=== PATIENT | female | born 1945 | race Caucasian/White ===

== ENCOUNTER 2020-02-29 11:15 | Emergency (ER) | payer MEDICARE, SELFPAY ==
[2020-02-29 11:19] VITALS: BP 128/85; PULSE 79; RESP 16; TEMP 36.1; O2SAT 99
--- NOTE | 2020-02-29 12:22 | ED.WOUNDLAC ---
HPI - Wound/Laceration General Chief Complaint: Wound/Laceration Stated Complaint: laceration hand Time Seen by Provider: 02/29/20 12:00 History of Present Illness HPI narrative: 74 yo female presents from home for a laceration. She cut the palmar surface of the left hand between the second and third fingers with the broken edge of a glass cutting board. Mild bleeding. No weakness, numbness. Related Data Allergies Allergy/AdvReac Type Severity Reaction Status Date / Time adhesive Allergy Unknown SKIN Verified 11/27/19 09:59 IRRITATION latex Allergy Unknown Skin Verified 11/27/19 09:59 Reaction lisinopril Allergy Unknown cough Verified 11/27/19 09:59 Review of Systems Review of Systems: All systems reviewed & are unremarkable except as noted in HPI and below Respiratory: Respiratory: Denies dyspnea Gastrointestinal: Gastrointestinal: Denies nausea Musculoskeletal: Musculoskeletal: Denies back pain Neurologic: Denies dizziness, Denies numbness and Denies weakness Hematologic/Lymphatic: Hematologic/Lymphatic: Denies easy bleeding and Denies easy bruising PMFSH Past Medical History Medical History Essential (primary) hypertension Major depressive disorder, recurrent episode, mild with anxious distress Family History Family History Sibling Depression Family history of cardiovascular disease Father Family history of glaucoma, Onset Age: 91 Mother Family history of alcoholism, Onset Age: 69 Family history of liver disease, Onset Age: 69 Social History Social History Smoking status: Never smoker Alcohol intake: never Gender identity (if verbalized by the patient): Female Exam Const: General: healthy appearing, no acute distress and alert Orientation/consciousness: patient oriented x3 HENMT: Head: normal to inspection Cardio: Other: 2 + left radial pulse. Brisk capillary refill distal to injury Skin: Other: 3 cm laceration to left palm Neuro: General: patient oriented x3, moves all extremities and CN's II-XI intact bilaterally Speech: normal speech Gait exam (Neuro): Normal gait present Other: distal sensation intact Extrem: General: normal to inspection Course Vital Signs Vital signs: Vital Signs Temperature 36.1 C L 02/29/20 11:19 Pulse Rate 79 02/29/20 11:19 Respiratory Rate 16 02/29/20 11:19 Blood Pressure 128/85 02/29/20 11:19 Pulse Oximetry 99 02/29/20 11:19 Temperature 36.1 C L 02/29/20 11:19 Pulse Rate 79 02/29/20 11:19 Respiratory Rate 16 02/29/20 11:19 Blood Pressure 128/85 02/29/20 11:19 Pulse Oximetry 99 02/29/20 11:19 Procedures Laceration Laceration 1: Date: 02/29/20 Time: 13:00 Site: hand Side (If applicable): left Size (cm): 3 Description: linear Depth: simple, single layer Local Anesthetic: lidocaine 1% and with epi Amount of anesthesia used (mL): 2 Pre-repair: wound explored (no foreign bodies) and irrigated extensively ====== Skin Level ====== Skin layer closed with: nylon Size (cm): 5-0 Number of sutures: 3 Technique: horizontal mattress ====== Subcutaneous Layer ====== ====== Muscle Layer ====== ====== Tendon Layer ====== Discharge Plan Discharge Clinical Impression: Hand laceration Qualifiers: Encounter type: initial encounter Foreign body presence: without foreign body Laterality: left Qualified Code(s): S61.412A - Laceration without foreign body of left hand, initial encounter Patient Disposition: Home, Self-Care Condition: Stable Instructions: Laceration (ED) Additional Instructions: Folow-uop for suture removal in 10-14 days. Prescriptions: No Action triamcinolone acetonide 0.1 % crea
[2020-02-29] MEDS: TETANUS,DIPHTHERIA,AC PERTUSSIS ADULT (0.5 ML) BOOSTRIX IM (13:05)
== END 2020-02-29 13:15 | disposition home or self-care (01) ==
PROVIDERS: Emergency Provider Emergency Medicine; PCP Family Medicine
DX: S61.412A Laceration without foreign body of left hand, initial encounter (principal); I10 Essential (primary) hypertension; Z23 Encounter for immunization; W25.XXXA Contact with sharp glass, initial encounter
CPT/HCPCS: 12002; 90471; 90715; 99282

== ENCOUNTER 2020-10-12 08:11 | Observation (INO) | payer MEDICARE, SELFPAY ==
[2020-10-12] VITALS (9 sets, daily range): BP systolic 142–194; BP diastolic 59–89; PULSE 58–89; RESP 16–24; TEMP 36.3–36.8; O2SAT 96–100; BMI 24.3
--- NOTE | ~2020-10-12 | MR_ITS ---
EXAMINATION: MR brain/brain stem wo/w con DATE: 10/13/2020 10:03 INDICATION: Diplopia. Transient ischemic attack. TECHNIQUE: Magnetic resonance imaging (MRI) of the brain and brainstem was performed without and with 12 mL MultiHance intravenous contrast. Sequences included sagittal and axial T1-weighted FSE, axial diffusion-weighted FS EPI, axial T2*-weighted GRE, axial T2-weighted FLAIR Propeller, and axial T2-we ighted Propeller. Postcontrast sequences included axial and coronal T1-weighted FSE. Apparent diffusi on coefficient (ADC) maps were created. COMPARISON: Head CT 10/12/2020 FINDINGS: There is no intracranial hemorrhage, acute infarction, or abnormal intracranial mass lesion . There are scattered areas of nonspecific increased T2-weighted signal intensity in the cerebral whi te matter. The ventricles are normal in size. There is mild mucosal thickening in the paranasal sinus es. There are likely changes of ocular lens replacement surgeries. The mastoid air cells are normal. IMPRESSION: 1. Mild nonspecific cerebral white matter disease, which likely represents chronic small vessel ische miguel disease. Reviewed, dictated and finalized at location A. IMPRESSION: 1. Mild nonspecific cerebral white matter disease, which likely represents practice specialist sammie small vessel ischemic disease.
--- NOTE | ~2020-10-12 | XR_ITS ---
EXAMINATION: XR chest 2V 10/12/2020 08:47 INDICATION: Diplopia PROCEDURE: 2 view chest COMPARISON: 04/11/2018 FINDINGS: The lungs are clear. The cardiomediastinal silhouette is within normal limits. There are no pleural effusions. There is no pneumothorax suspected. IMPRESSION: 1: NO ACUTE CARDIOPULMONARY DISEASE. Reviewed, dictated and finalized at location A.
--- NOTE | ~2020-10-12 | CT_ITS ---
EXAMINATION: CT brain wo con DATE: 10/12/2020 08:57 INDICATION: Double vision. Hypertension. TECHNIQUE: Computed tomography (CT) of the head was performed without intravenous contrast. The dose- length product was 605.33 mGy-cm. Automated exposure control and iterative reconstruction technique w ere employed. COMPARISON: CT dated 04/11/2018 FINDINGS: No acute intracranial hemorrhage, infarction, mass or mass effect. There are scattered mild periventricular and subcortical white matter changes, most likely related to small vessel ischemic d isease (microangiopathy). No ventriculomegaly or midline shift. Basilar cisterns are patent. IMPRESSION: 1. No acute intracranial abnormality. Reviewed, dictated and finalized at location A.
--- NOTE | ~2020-10-12 | US_ITS ---
EXAMINATION: US carotid duplex BI DATE: 10/13/2020 10:17 INDICATION: Diplopia. Transient ischemic attack. TECHNIQUE: Grayscale, color Doppler, and pulsed Doppler images of the cervical carotid arteries were obtained. The degree of vessel stenosis is placed in one of the following categories: normal, <50%, 5 0-69%, >=70% but less than near-occlusion, near-occlusion, or total occlusion. Note that percent sten osis relative to normal distal artery lumen diameter is indirectly measured from velocity measurement s as described by Suresh, et al. Radiology 2003; 229:340-346. COMPARISON: None. FINDINGS: RIGHT: The right common carotid artery (CCA) peak systolic velocity (PSV) is 96 cm/s. The right internal car otid artery (ICA) PSV is 118 cm/s. The right ICA end-diastolic velocity (EDV) is 29 cm/s. The right I CA/CCA PSV ratio is 1.2. Grayscale and color Doppler images yield an estimate of <50% diameter reduct ion from plaque in the ICA. There is antegrade flow in the right vertebral artery. LEFT: The left CCA PSV is 108 cm/s. The left ICA PSV is 73 cm/s. The left ICA EDV is 22 cm/s. The left ICA/ CCA PSV ratio is 0.7. Grayscale and color Doppler images yield an estimate of <50% diameter reduction from plaque in the ICA. There is antegrade flow in the left vertebral artery. IMPRESSION: 1. <50% stenosis in the right internal carotid artery. 2. <50% stenosis in the left internal carotid artery. Reviewed, dictated and finalized at location A.
--- NOTE | 2020-10-12 08:25 | ECG_ITS ---
Measurements Intervals [place] Rate: 84 P: 17 WA: 145 QRS: -13 QRSD: 98 T: 70 QT: 360 QTc: 427 Interpretive Statements SINUS RHYTHM LEFT VENTRICULAR HYPERTROPHY AND ST-T CHANGE MINIMAL Q WAVES- HIGH LATERAL LEADS BASELINE ARTIFACT- I, II, III, AVR, AVL BORDERLINE ECG Electronically Signed On 10-12-2020 16:19:44 CDT by Venancio Mccabe D.O.
[2020-10-12] MEDS: LORazepam INJ (*CRX) 2 MG/ML VIAL 0.5 MG IV PUSH (08:54)
[2020-10-12 08:55] LABS: Basophils Percent Auto 0.7 % (0.2-1.2); Eosinophils Absolute Auto 0.2 K/mm3 (0-0.3); Eosinophils Percent Auto 4.1 % (0-4.4); Hematocrit 43.6 % (37.0-47.0); Hemoglobin 14.8 g/dL (12.0-15.0); Immature Granulocyte Absolute 0.02 K/mm3 (0.00-0.031); Immature Granulocyte Percent A 0.4 % (0-0.5); Lymphocytes Absolute Auto 1.55 K/mm3 (0.9-3.2); Lymphocytes Percent Auto 28.7 % (18.3-44.2); Mean Corpuscular HGB Conc 33.9 g/dl (32-36); Mean Corpuscular Hemoglobin 29.8 pg (26-34); Mean Corpuscular Volume 87.9 fl (80-100); Mean Platelet Volume 9.7 fl (7.4-10.4); Monocytes Absolute Auto 0.4 K/mm3 (0.1-0.6); Monocytes Percent Auto 7.6 % (2.6-8.5); Neutrophils Absolute Auto 3.2 K/mm3 (1.3-6.7); Neutrophils Percent Auto 58.5 % (45.5-73.1); Platelet Count Result 251 k/mm3 (150-375); Red Blood Count 4.96 M/mm3 (4.2-5.4); Red Cell Distribution Width 13.2 % (11.5-14.5); White Blood Count 5.4 K/mm3 (4.5-10.0)
[2020-10-12 09:03] LABS: Anion Gap 6 mmol/L (8-16); Blood Urea Nitrogen 15 mg/dL (7-17); Calcium 9.2 mg/dL (8.4-10.2); Carbon Dioxide 27 mmol/L (22-30); Chloride 104 mmol/L (98-107); Estimated CRCL calculation 69 ml/min; Estimated Glomerular Filt Rate > 60; Glucose 95 mg/dL (65-110); Potassium 3.1 mmol/L (3.4-5.0); Sodium 137 mmol/L (137-145)
--- NOTE | 2020-10-12 11:21 | ED.GENADULT ---
HPI - General Adult General Chief complaint: Recheck/Abnormal Lab/Rx Stated complaint: elevated bp, blurry vision Time Seen by Provider: 10/12/20 08:13 History of Present Illness HPI narrative: Patient is a 74-year-old female who presents ER with concerns for diplopia. Lasted for 30 minutes after waking this morning. Also had slight blurring of vision. No slurred speech or facial droop. No weakness in arm or leg. She had no balance issues. Resolved on its own. Has had no vision issues in the past. Noted her blood pressure was significantly elevated for her. She also reports she is very anxious. She recently had a cardiac ablation for some extra heartbeats. Chart review shows supraventricular tachycardia that was diagnosed on Holter monitor that was likely ablated. Related Data Allergies Allergy/AdvReac Type Severity Reaction Status Date / Time adhesive Allergy Unknown SKIN Verified 10/12/20 15:40 IRRITATION latex Allergy Unknown Skin Verified 10/12/20 15:40 Reaction sertraline AdvReac Confusion Verified 10/12/20 15:49 Review of Systems Review of Systems: All systems reviewed & are unremarkable except as noted in HPI and below Constitutional: Constitutional: Denies chills, Denies fever(s) and Denies weakness Eyes: Eyes: Reports change in vision (Double vision and blurring which is resolved) ENT: Denies nasal congestion and Denies sore throat Cardiovascular: Cardiovascular: Denies chest pain, Denies rapid heart rate and Denies radiating jaw, neck or arm pain Respiratory: Respiratory: Denies cough and Denies dyspnea Neurologic: Denies dizziness, Denies syncope, Denies headache(s), Denies focal weakness and Denies numbness Psychiatric: Psychiatric: Reports anxiety and Denies depression [facility] Past Medical History Medical History (Updated 10/12/20 @ 19:01 by Todd Pablo MD) Essential (primary) hypertension Hyperlipidemia Major depressive disorder, recurrent episode, mild with anxious distress Obstructive sleep apnea (adult) (pediatric) Panic disorder without agoraphobia Surgical History Surgical History (Updated 10/10/20 @ 17:27 by Juan Pablo Sidhu DO) History of appendectomy History of cardiac radiofrequency ablation 08/2020 Family History Family History Sibling Depression Family history of cardiovascular disease Father Family history of glaucoma, Onset Age: 91 Mother Family history of alcoholism, Onset Age: 69 Family history of liver disease, Onset Age: 69 Social History Social History Smoking status: Never smoker Alcohol intake: current Drinks per week: 2 Substance use type: does not use Spiritual care concerns: No Exam Narrative: GENERAL: Well-appearing, well-nourished, and in no acute distress. HEAD: Normocephalic, atraumatic. EYES: PERRLA and EOMI. ENT: Mucous membranes moist. CHEST: Clear to auscultation. No respiratory distress. HEART: Regular rate and rhythm. Normal peripheral pulses. ABDOMEN: Soft, nontender, nondistended. EXTREMITIES: Normal range of motion. No edema. SKIN: Warm, dry, no rash. NEURO: Alert and oriented x3. No upper or lower extremity drift. Cranial nerves II through XII intact. PSYCH: Anxious mood, normal thought content. Course Course Emergency Course: Admit for observation. Possible TIA. Vital Signs Vital signs: Vital Signs Temperature 98.2 F 10/12/20 08:29 Pulse Rate 89 10/12/20 08:29 Respiratory Rate 16 10/12/20 08:29 Blood Pressure 194/89 H 10/12/20 08:29 Pulse Oximetry 100 10/12/20 08:29 Temperature 97.3 F L 10/12/20 18:00 Pulse Rate 75 10/12/20 18:00 Respiratory Rate 24 H 10/12/20 18:00 Blood Pressure 189/79 H 10/12/20 18:00 Pulse Oximetry 100 10/12/20 18:00 Medical Decision Making Vital Signs Vital Signs: Vital Signs Temperatur
--- NOTE | 2020-10-12 15:39 | ADMGEN ---
This patient, Noni Wilson, was admitted to Medical Room 242-. Patient/family oriented to hospital policies and general routines including ID bracelet, bed and alarms, visiting hours, pain management, procedures, bathroom and other care routines, personal items, smoking policy, room service/diet, and visiting hours. Information on how to activate the Rapid Response Team has been discussed. Patient/Family are encouraged to report perceived risks to care and to ask questions if they do not understand what they are told or what they should do.
[2020-10-12] MEDS: ACETAMINOPHEN 325 MG TABLET 650 MG PO (15:56)
--- NOTE | 2020-10-12 16:00 | PM.IMHP ---
H&P: HPI History of Present Illness Date/Time: 10/12/20 16:00 Chief Complaint: Elevated blood pressure and double vision. Narrative: This is a very pleasant 74-year-old female with hyperlipidemia, anxiety, and elevated blood pressure not requiring medications who presented to the emergency department earlier today via private vehicle from home for evaluation of elevated blood pressure and double vision. She was in her usual state of health when she went to bed last night and upon waking this morning she had double vision, reportedly seeing 2 dogs on her bed when she only has 1. She describes having double vision with both eyes open which resolved when either eye is closed). Her vision was also a bit blurry. Symptoms resolved within 30 minutes and have not returned. She has been monitoring her blood pressures at home as they have been running high though she has not yet been started on antihypertensives. Today her blood pressure was over 200 and so she came in for evaluation. At the time my evaluation she is quite anxious and tearful and I think that is making her blood pressures higher. Aside from mild bitemporal headache has no other complaints and specifically denies vertigo, focal weakness, paresthesias, dysarthria, dysphagia, and facial droop. Review of Systems Review of Systems: 12 systems were reviewed with pertinent positives and negatives as per HPI. No vertigo. She denies syncope near syncope. No chest pain, pleuritic pain, or palpitations. She did have a cardiac ablation done earlier this summer for SVT. No orthopnea, PND, or lower extremity edema. She is not diabetic. No known thyroid disease. No recent cold or flu symptoms. She denies sick contacts. Except as documented, all other systems were reviewed and are negative. [facility] Past Medical History Medical History (Updated 10/12/20 @ 21:00 by Brie Booth PA-C) Essential (primary) hypertension Generalized anxiety disorder Generalized osteoarthritis Hyperlipidemia Major depressive disorder, recurrent episode, mild with anxious distress Surgical History Surgical History (Updated 10/12/20 @ 20:57 by Brie Booth PA-C) History of appendectomy History of cardiac radiofrequency ablation (08/2020) For SVT per Dr. Leach at [facility]. History of cataract extraction History of right hip replacement History of tubal ligation Family History Family History Sibling Depression Family history of cardiovascular disease Father Family history of glaucoma, Onset Age: 91 Mother Family history of alcoholism, Onset Age: 69 Family history of liver disease, Onset Age: 69 Social History Social History (Updated 10/12/20 @ 20:58 by Brie Booth PA-C) Social History: The patient lives in [place] with her and daughter. Retired from working in a school cafeteria. Lifelong nonsmoker. Drinks perhaps 2 alcoholic beverages a week. No illicit substance use. She designates her son, Allan Wilson, as her surrogate decision maker. Code status: Full code. Meds Home Medications and Allergies Home Medications Medication Instructions Recorded Confirmed Type ibuprofen 800 mg tablet 800 mg PO TID 30 Days #90 tablet 07/30/20 10/12/20 Rx tramadol 50 mg tablet 50 mg PO Q6H PRN #60 tablet 07/30/20 10/12/20 Rx atorvastatin 20 mg tablet 20 mg PO DAILY #90 tablet 08/19/20 10/12/20 Rx Allergies Allergy/AdvReac Type Severity Reaction Status Date / Time adhesive Allergy Unknown SKIN Verified 10/12/20 15:40 IRRITATION latex Allergy Unknown Skin Verified 10/12/20 15:40 Reaction sertraline AdvReac Confusion Verified 10/12/20 15:49 Vital Signs Vital Signs - 24 hr 10/12/20 08:29 10/12/20 10:21 10/12/20 10:22 Temperature 98.2 F Pulse Rate 89 60 83 Respiratory Rate 16 Blood Pressure 194/89 H 159/68 H 158/89 H Pulse Oximetry 100 10/12/20 11:52
[2020-10-12] MEDS: POTASSIUM CHLORIDE 20 MEQ TABLET PO (21:33)
[2020-10-12] MEDS: amLODIPine BESYLATE 5 MG TABLET PO (21:33)
[2020-10-12] MEDS: diphenhydrAMINE HCl CAP 25 MG CAPSULE PO (21:33)
[2020-10-13] VITALS: BP 129/60; PULSE 54; PULSE 64; RESP 16; TEMP 36.1; O2SAT 96
[2020-10-13 04:00] VITALS: BP 144/64; PULSE 56; PULSE 58; RESP 16; TEMP 36.1; O2SAT 97
[2020-10-13 06:11] LABS: Alanine Aminotransferase 12 U/L (4-35); Albumin Level 3.6 g/dL (3.5-5.1); Alkaline Phosphatase 71 U/L (38-126); Anion Gap 4 mmol/L (8-16); Aspartate Amino Transferase 18 U/L (14-36); Bilirubin,Total 0.5 mg/dL (0.2-1.3); Blood Urea Nitrogen 14 mg/dL (7-17); Calcium 9.6 mg/dL (8.4-10.2); Carbon Dioxide 28 mmol/L (22-30); Chloride 106 mmol/L (98-107); Cholesterol 169 mg/dL (0-200); Estimated CRCL calculation 60 ml/min; Estimated Glomerular Filt Rate > 60; Glucose 93 mg/dL (65-110); HDL Direct 68 mg/dL; Magnesium 1.8 mg/dL (1.6-2.3); Sodium 138 mmol/L (137-145); Triglycerides 99 mg/dL (<150)
[2020-10-13 06:22] LABS: LDL Cholesterol Direct 71 mg/dL
[2020-10-13 07:39] LABS: Thyroid Stimulating Hormone Reflex 0.829 uIU/mL (0.465-4.68)
[2020-10-13 08:00] VITALS: BP 140/57; PULSE 70; PULSE 75; RESP 18; TEMP 36.6; O2SAT 97
[2020-10-13] MEDS: amLODIPine BESYLATE 5 MG TABLET PO (08:03)
[2020-10-13] MEDS: ASPIRIN 81 MG ENTERIC TABLET PO (08:03)
[2020-10-13] MEDS: ATORVASTATIN 20 MG TABLET PO (08:03)
--- NOTE | 2020-10-13 09:08 | PCOTNOTE ---
Attempted OT evaluation, patient is currently being taken off the unit for tests, will follow and attempt at later time.
[2020-10-13 12:00] VITALS: BP 134/63; PULSE 74; PULSE 97; RESP 16; TEMP 36.3; O2SAT 96
[2020-10-13 16:00] VITALS: BP 137/63; PULSE 74; PULSE 86; RESP 16; TEMP 36.4; O2SAT 97
--- NOTE | 2020-10-13 17:15 | PM.IMPN ---
Progress Note: A&P Assessment and Plan (1) Diplopia: Code(s): H53.2 - Diplopia Status: Acute Assessment and Plan: -Symptoms resolved, MRI negative, carotid duplex negative. Patient will follow-up with metallic yarn slitting machine operator outpatient. -Zofran for nausea (2) Hypokalemia: Code(s): E87.6 - Hypokalemia Status: Acute Assessment and Plan: Repleted from 3.1-4.0 (3) Tachy-ran syndrome: Code(s): I49.5 - Sick sinus syndrome Status: Acute Assessment and Plan: On telemetry seen to be rating to 50s and then tachycardic to the 120s. Multiple episodes throughout the day. Patient has a history of tachy-ran syndrome last Holter done in April of 2020. Patient states she had an ablation done in August 2020 and follow-up appointment had no problems. With the new findings we have here she likely will need to follow-up with her EP lead clinical research coordinator. Is unclear if the tachy-ran syndrome is related to this episode today with the diplopia. Additional Plan # chronic conditions -continue home Lipitor, aspirin -hypertension: Continue Norvasc, will not start beta-cisco with her bradycardic episodes, will need outpatient follow-up for tachy-ran syndrome Diet: Heart healthy DVT prophylaxis: SCDs Code status: Full code Disposition: Home tomorrow, awaiting cardiac echocardiogram results Time Spent With Patient Time with patient: 25 - 35 minutes Subjective Date/time seen: 10/13/20 17:15 Patient examined. Her symptoms have resolved back to baseline. Patient on telemetry has been going tachy and Ran. He has recent history of cardiac ablation for the tachy-ran syndrome in late August 2020. We printed out telemetry strips for patient to follow-up with her EP lead clinical research coordinator for further workup. MRI is negative for acute stroke, carotid duplex are negative. We are waiting echocardiogram results prior to discharge. Patient will follow-up outpatient with her eye doctor. Her vision has improved and no longer has double vision. She was hypertensive during the episode apparently, we will continue following the blood pressure which has normalize. Patient denies fever, chills, nausea, vomiting, diarrhea, chest pain, abdominal pain, vision changes. Review of Systems Review of Systems: All systems reviewed & are unremarkable except as noted in HPI and below Exam Narrative: - GENERAL: Pleasant elder woman in no acute distress. Well-nourished. - EYES: EOMI. Anicteric. She has horizontal nystagmus when looking to the right side no associated dizziness or nausea. - HENT: Moist mucous membranes. - LUNGS: Clear to auscultation bilaterally, no wheezing, rhonchi, or rales. - CARDIOVASCULAR: Regular rate and rhythm. No murmur. No JVD. - ABDOMEN: Soft, non-tender and non-distended. No palpable masses. - EXTREMITIES: No edema. Peripheral pulses 2+. Non-tender. - NEUROLOGIC: No focal neurological deficits. CN II-XII intact. - PSYCHIATRIC: Awake, Alert and oriented x 3. Appropriate mood and affect. - SKIN: No rashes or lesions. Warm. - LYMPH: No cervical lymphadenopathy. Objective Data Vital Signs Vital Signs: Vital Signs - 24 hr 10/12/20 18:00 10/12/20 19:55 10/12/20 20:00 Temperature 36.3 C L Pulse Rate 75 64 67 Respiratory Rate 24 H Blood Pressure 189/79 H Pulse Oximetry 100 96 10/12/20 21:03 10/13/20 00:00 10/13/20 04:00 Temperature 36.6 C 36.1 C L 36.1 C L Pulse Rate 66 64 58 L Respiratory Rate 16 16 16 Blood Pressure 148/73 H 129/60 144/64 H Pulse Oximetry 96 96 97 10/13/20 08:00 10/13/20 12:00 10/13/20 16:00 Temperature 36.6 C 36.3 C L 36.4 C Pulse Rate 75 97 74 Respiratory Rate 18 16 16 Blood Pressure 140/57 L 134/63 137/63 Pulse Oximetry 97 96 97 Intake/Output Intake/Output: Intake & Output 10/10/20 10/11/20 10/12/20 10/13/20 23:59 23:59 23:59 23:59 Intake Total 390 1470 Output Total 1480 Balance 390 -10 Meds/Results Medications: Active Medications
--- NOTE | 2020-10-13 18:08 | PM.DS ---
DS: Admitting Diagnosis Admitting Diagnosis Diplopia DS: Discharge Diagnosis Discharge Diagnosis (1) Tachy-ran syndrome: Code(s): I49.5 - Sick sinus syndrome Status: Acute Assessment and Plan: On telemetry seen to be rating to 50s and then tachycardic to the 120s. Multiple episodes throughout the day. Patient has a history of tachy-ran syndrome last Holter done in April of 2020. Patient states she had an ablation done in August 2020 and follow-up appointment had no problems. With the new findings we have here she likely will need to follow-up with her EP crude oil driver. Is unclear if the tachy-ran syndrome is related to this episode today with the diplopia. # chronic conditions -continue home Lipitor, aspirin -hypertension: Continue Norvasc, will not start beta-cisco with her bradycardic episodes, will need outpatient follow-up for tachy-ran syndrome (2) Diplopia: Code(s): H53.2 - Diplopia Status: Acute Assessment and Plan: -Symptoms resolved, MRI negative, carotid duplex negative. Patient will follow-up with studio operation engineer outpatient. -Zofran for nausea (3) Hypokalemia: Code(s): E87.6 - Hypokalemia Status: Acute Assessment and Plan: Potassium repleted DS: Summary Hospital Course Reason for hospitalization: Double vision, concern for stroke Hospital Course: Patient is a 74-year-old female with past medical history of hyperlipidemia, anxiety, hypertension presents to ED with complaints of double vision. She has never had these symptoms before. She has usual health last night and with this morning woke up with double vision and she came to the ER for further evaluation. Of note her blood pressure at home was measured to be greater than 200 systolic. In the ED she was found to have hypertension with systolic blood pressure 194, which came down on its own. Her symptoms resolved spontaneously. She is admitted for stroke workup. MRI negative. Carotid duplex showed less than 50% stenosis. Echocardiogram is pending and she would like to follow-up with her crude oil driver on Tuesday. While she was here telemetry showed tachy-ran syndrome with tachycardia to the 120s and bradycardia to the 50s. She was asymptomatic during the hospitalization. Patient will follow-up with her EP crude oil driver on Tuesday with the telemetry strips to further evaluate. Of note she had ablation done end of August, history of tachy-ran syndrome seen on Holter monitor in April 2020. Her symptoms may be attributed to her heart rate. At this time we are not starting any new medications for blood pressure with her vitals changing so drastically on their own. We are still awaiting echocardiogram results however patient was tearful and adamant about going home. She will follow-up with her PCP and crude oil driver with the echocardiogram results. Patient will keep a blood pressure log and follow-up with PCP in a week. Patient's vitals stable, labs stable, patient is stable for discharge home. Patient understands and agrees with plan. Status at Discharge Cognitive/behavioral status at discharge: At baseline Functional status at discharge: independent ambulation Overall status at discharge: patient is back to baseline Time Spent with Patient Time attestation: Total time spent providing and/or coordinating discharge services:35 Time spent: Greater than 30 minutes Exam Narrative: - GENERAL: Pleasant elder woman in no acute distress. Well-nourished. - EYES: EOMI. Anicteric. She has horizontal nystagmus when looking to the right side no associated dizziness or nausea. - HENT: Moist mucous membranes. - LUNGS: Clear to auscultation bilaterally, no wheezing, rhonchi, or rales. - CARDIOVASCULAR: Regular rate and rhythm. No murmur. No JVD. - ABDOMEN: Soft, non-tender and non-distended. No palpable masses. - EXTREMITIES: No edema. Peripheral pulses 2+. Non-tender. - NEUROLOGIC: No focal neurological deficits.
--- NOTE | 2020-10-13 20:43 | ECHO_ITS ---
Patient Info Name: Noni Wilson Age: 74 years : 1945 Gender: Female Ht: 64 in Wt: 141 lbs BSA: 1.71 m2 HR: 73 bpm BP: 144 / 64 mmHg Heart Rhythm: Sinus Rhythm Technical Quality: Good Exam Date: 10/13/2020 8:45 AM Exam Location: [facility] Card Pulmonary Patient Status: Inpatient Admit Date: 10/12/2020 Staff Ordering Physician: Brie Booth PA-C Image Scientist: Danay Smart RDCS Attending Provider: Karl Berkowitz MD Referring Physician: Emmy BRADSHAW; Exam Type: CA echo doppler color flow Study Info Indications I10 - Essential (primary) hypertension Complete two-dimensional, color flow and Doppler transthoracic echocardiogram is performed. Summary 1. Complete two-dimensional, color flow and Doppler transthoracic echocardiogram is performed. 2. Left ventricular chamber dimension is normal. 3. Left ventricular systolic function is normal, estimated at 60-65%. 4. There is no increased left ventricular wall thickness. 5. The left ventricular diastolic function is grade I diastolic dysfunction. 6. Right atrial chamber dimension is mildly enlarged. 7. There is trace mitral valve regurgitation. 8. There is mild aortic valve regurgitation. Recommendations * Consider bubble study or transesophageal echocardiogram if clinically indicated. Left Ventricle Left ventricular chamber dimension is normal. Left ventricular systolic function is normal, estimated at 60-65%. There is no increased left ventricular wall thickness. The left ventricular diastolic function is grade I diastolic dysfunction. Global longitudinal strain is mildly elevated at -14 %. Right Ventricle Right ventricular chamber dimension is normal. Right ventricular systolic function is normal. Left Atria Left atrial chamber dimension is normal. Right Atria Right atrial chamber dimension is mildly enlarged. Aortic Valve The aortic valve is trileaflet. There is no aortic valve stenosis. There is mild aortic valve regurgitation. Pulmonic Valve The pulmonic valve is normal. There is mild pulmonic regurgitation. Mitral Valve The mitral valve has normal leaflets. There is trace mitral valve regurgitation. The mitral valve annulus is mildly calcified. Tricuspid Valve The tricuspid valve leaflets are normal. There is trace tricuspid valve regurgitation. No pulmonary hypertension, estimated pulmonary arterial systolic pressure is 28 mmHg. Pericardium/Pleural The pericardium appears normal. There is trivial pericardial effusion. Inferior Vena Cava Normal inferior vena cava with >50% collapse upon inspiration consistent with normal right atrial pressure, 5 mmHg. Aorta The aortic root size at the sinus of Valsalva is normal. There is mild aortic atherosclerosis. Left Ventricular Outflow Tract Name Value Normal LVOT 2D LVOT Diameter 2.0 cm LVOT Doppler LVOT Peak Gradient 3 mmHg LVOT Mean Gradient 2 mmHg LVOT VTI 17 cm LVOT VTI/AV VTI Ratio 0.7 LVOT Stroke Volume
== END 2020-10-13 18:50 | disposition home or self-care (01) ==
LOC: ANHED 09:24 → ANH2MED 19:01
PROVIDERS: Physician Assistant; Admitting Provider Internal Medicine; Emergency Provider Emergency Medicine; PCP Family Medicine; Visit Provider Student in an Organized Health Care Education/Training Program
DX: H53.2 Diplopia (principal); I49.5 Sick sinus syndrome; I10 Essential (primary) hypertension; E78.5 Hyperlipidemia, unspecified; F41.8 Other specified anxiety disorders; Z96.641 Presence of right artificial hip joint
CPT/HCPCS: 36415; 70450; 70553; 71046; 80048; 80053; 80061; 83735; 84443; 85025; 93005; 93306; 93880; 96374; 97161; 97165; 99285; A9270; A9577; G0378; J2060

== ENCOUNTER 2021-05-05 14:19 | Outpatient (CLI) | payer MEDICARE, SELFPAY ==
--- NOTE | ~2021-05-05 | XR_ITS ---
XR hip LT min 3V w AP pelvis DATE: 05/05/2021 14:43 INDICATION: Left groin pain. No injury. TECHNIQUE: AP pelvis. AP, lateral and crosstable lateral views of left hip COMPARISON: 08/10/2018 sacrum and coccyx FINDINGS: There is dextroscoliosis and multilevel degenerative disc disease of the lumbar spine. The pubic symphysis and sacroiliac joints are intact. No pelvic fracture or bone destruction is detec kristen. Status post right total hip arthroplasty. There is very severe osteoarthritic change at the left hip joint with severe joint space narrowing an d very prominent spurring in addition to patchy sclerosis and cystic changes at either side of the myrtle int. IMPRESSION: Severe left hip osteoarthritis, advanced since 08/10/2018 Reviewed, dictated and finalized at location A. [employer]
== END 2021-05-05 14:20 | disposition home or self-care (01) ==
PROVIDERS: PCP Family Medicine; Visit Provider Family Medicine
DX: R10.32 Left lower quadrant pain (principal); M16.12 Unilateral primary osteoarthritis, left hip
CPT/HCPCS: 73502

== ENCOUNTER 2021-08-27 12:14 | Outpatient (CLI) | payer MEDICARE, SELFPAY ==
[2021-08-27 13:54] LABS: Basophils Absolute Auto 0.1 K/mm3 (0.0-0.1); Basophils Percent Auto 0.9 % (0.2-1.2); Eosinophils Absolute Auto 0.3 K/mm3 (0-0.3); Hematocrit 44.3 % (37.0-47.0); Hemoglobin 14.6 g/dL (12.0-15.0); Immature Granulocyte Absolute 0.02 K/mm3 (0.00-0.031); Immature Granulocyte Percent A 0.3 % (0-0.5); Lymphocytes Absolute Auto 1.67 K/mm3 (0.9-3.2); Lymphocytes Percent Auto 23.9 % (18.3-44.2); Mean Corpuscular Hemoglobin 29.6 pg (26-34); Mean Corpuscular Volume 89.9 fl (80-100); Mean Platelet Volume 9.7 fl (7.4-10.4); Monocytes Absolute Auto 0.6 K/mm3 (0.1-0.6); Neutrophils Absolute Auto 4.3 K/mm3 (1.3-6.7); Neutrophils Percent Auto 61.9 % (45.5-73.1); Platelet Count Result 272 k/mm3 (150-375); Red Blood Count 4.93 M/mm3 (4.2-5.4); Red Cell Distribution Width 12.8 % (11.5-14.5)
[2021-08-27 14:01] LABS: Urine Cotinine NEGATIVE
[2021-08-27 14:03] LABS: Albumin Level 4.2 g/dL (3.5-5.1); Anion Gap 5 mmol/L (8-16); Blood Urea Nitrogen 18 mg/dL (7-17); Calcium 9.1 mg/dL (8.4-10.2); Carbon Dioxide 29 mmol/L (22-30); Chloride 106 mmol/L (98-107); Estimated Glomerular Filt Rate > 60; Glucose 89 mg/dL (65-110); Potassium 3.8 mmol/L (3.4-5.0); Sodium 140 mmol/L (137-145)
[2021-08-27 14:11] LABS: Hemoglobin A1C 5.1 % (<5.7)
== END 2021-08-27 12:15 | disposition home or self-care (01) ==
LOC: ANHSURGERY 12:18
PROVIDERS: PCP Family Medicine; Visit Provider Orthopaedic Surgery
DX: M16.12 Unilateral primary osteoarthritis, left hip (principal); Z01.818 Encounter for other preprocedural examination
CPT/HCPCS: 80048; 80307; 82040; 83036; 85025; 87070

== ENCOUNTER 2021-09-14 02:41 | Day surgery (SDC) | payer MEDICARE, SELFPAY ==
--- NOTE | 2021-08-27 11:44 | PC.NURSE ---
Report to the Outpatient Waiting Room, entrance under the green pavilion located off [facility], at time _0600_ on date _09/14/21_. OR Time: _0730_. - You and your visitor will be asked a series of questions to screen for COVID 19 for your protection. - Only one visitor is allowed at this time. - The patient visitor is requested to leave or wait in car when not with patient. - VISITING HOURS 10AM-8PM, USE MAIN HOSPITAL ENTRANCE - A mask is required within the hospital. Patients may have clear liquids (water, carbonated beverages, clear teas, apple juice) until 3 hours prior to surgery (0430 AM) with a maximum of 20 ounces. - No food from midnight until time of surgery Take the following medications with a SIP of water the morning of surgery: _AMLODIPINE_ Medications to discontinue per DR. FORBES - IBUPROFEN 7 DAYS PRIOR TO SURGERY, Date to take last dose 09/06/21_ Please no make-up, nail english, hairspray, perfume, deodorant, or body powder the day of surgery. No jewelry (including any body piercings) or valuables the day of surgery, leave them at home. Please take a shower or bath the night before, or the morning of, surgery with an antibacterial soap. Wear comfortable, loose fitting clothing. - Jewelry must be removed prior to entering the operating room. Rings and piercings that are not removed may be cut off. - The hospital will not accept responsibility for valuables. - Please leave all valuables, including medications, at home the day of surgery. If you are going home after surgery, a licensed double bottom driver must drive you home. - NO public transportation without another adult. - We recommend that an adult stay with you for 24 hours following discharge. - We also recommend that you do not drive, make important decision, drink alcoholic beverages, or take any drugs that were not prescribed by your health care provider for at least 24 hours after your discharge time. Follow any additional instructions given to you from your surgeon. If you or anyone in your household have experienced Covid symptoms in the past week, please notify your surgeon or the nurse liaison at the phone number below for possible testing. Instructions given to ____PT and asked if any additional questions and then verbalized understanding. Patient advised to call surgeon office or pre surgery nurse liaison [phone] if any additional questions.
[2021-08-27 12:33] VITALS: BP 142/78; PULSE 72; RESP 18; TEMP 36.9; O2SAT 98; BMI 28.0
--- NOTE | 2021-09-11 08:47 | PM.IMHP ---
H&P: HPI History of Present Illness Date/Time: 09/11/21 08:47 Chief Complaint: Left hip DJD Narrative: 75-year-old female patient Dr. Simmons, who presents today for a left anterior total hip arthroplasty. Patient states she has been having pain in this left hip for over a year. It has become intolerable for her. She had a right total hip arthroplasty done in 2013. She has had good results with that is happy with her surgery. She has advanced type 1 arthritis in the left hip. She has been taking anti-inflammatories [id number] on a regular basis unfortunately she continues have significant symptoms. It is affecting her daily life. She feels at this point she is ready to proceed with total hip arthroplasty on the left rather continuing nonsurgical treatment. Review of Systems Review of Systems: All systems reviewed & are unremarkable except as noted in HPI and below PMFSH Past Medical History Medical History Essential (primary) hypertension Generalized anxiety disorder Generalized osteoarthritis Hyperlipidemia Major depressive disorder, recurrent episode, mild with anxious distress Surgical History Surgical History History of appendectomy History of cardiac radiofrequency ablation (08/2020) For SVT per Dr. Leach at [facility]. History of cataract extraction History of right hip replacement History of tubal ligation Family History Family History Sibling Depression Family history of cardiovascular disease Father Family history of glaucoma, Onset Age: 91 Mother Family history of alcoholism, Onset Age: 69 Family history of liver disease, Onset Age: 69 Social History Social History Social History: The patient lives in [place] with her and daughter. Retired from working in a school cafeteria. Lifelong nonsmoker. Drinks perhaps 2 alcoholic beverages a week. No illicit substance use. She designates her son, Allan Wilson, as her surrogate decision maker. Code status: Full code. Smoking status: Never smoker Second hand tobacco smoke exposure: No Additional smoking assessment comments: PT DENIES ALL FORMS OF TOBBACO USE Alcohol intake: current Drinks per week: 2 Alcohol use details: 2-3/MONTH Substance use: current Substance use type: marijuana Other substance usage details: STATES COUPLE BITE SIZE BROWNIES 1-2 TIMES A WEEK Last use: 08/23/21 Spiritual care concerns: No Meds Home Medications and Allergies Home Medications Medication Instructions Recorded Confirmed Type ibuprofen 800 mg tablet 800 mg PO TID 30 days #90 tabs 03/30/21 08/28/21 Rx amlodipine 5 mg tablet 5 mg PO QAM 08/27/21 08/28/21 History atorvastatin 20 mg tablet 20 mg QAM 08/27/21 08/28/21 History losartan 100 mg tablet 100 mg QAM 08/27/21 08/28/21 History Allergies Allergy/AdvReac Type Severity Reaction Status Date / Time adhesive Allergy Unknown SKIN Verified 08/28/21 08:45 IRRITATION latex Allergy Unknown Skin Verified 08/28/21 08:45 Reaction sertraline AdvReac Confusion Verified 08/28/21 08:45 Exam Narrative: 35-year-old female alert pleasant. She is 5 ft 1 and 145 lb. While lying supine left leg appears to be 1/4 inch shorter. Left hip has motion from 10-95 degrees of flexion. Internal rotation to 10? external rotation is to 20?. Range motion causes her lateral hip and anterior groin pain. Stinchfield maneuver causes anterior groin pain. She has normal abduction strength in lateral position. No tenderness over the greater trochanter. Skin around the groin crease is all normal. There is no edema in lower extremities. 2+ dorsalis pedis and post tibial artery pulse palpable. Resp: Auscultation: clear to auscultation bila
--- NOTE | 2021-09-11 12:51 | WPDANESEPPF ---
Anes - Initial Pre Proc Eval Procedure: Operation Date: 09/14/21 07:30 Proposed Procedures p Left Total Hip Direct Anterior Approach Arthroplasty - Renny Matos MD Date/Time: 09/11/21 12:51 Surgeon: Renny Matos MD Pre Op Diagnosis: oa left hip Patient Data Age: 75 Gender: F Height: 1.54 m Weight: 66.1 kg Last Vital Signs Temp 98.5 F 08/27/21 12:33 Pulse 72 08/27/21 12:33 Resp 18 08/27/21 12:33 BP 142/78 H 08/27/21 12:33 Pulse Ox 98 08/27/21 12:33 O2 Del Method Room Air 08/27/21 12:33 Allergies Allergy/AdvReac Type Severity Reaction Status Date / Time adhesive Allergy Unknown SKIN Verified 08/28/21 08:45 IRRITATION latex Allergy Unknown Skin Verified 08/28/21 08:45 Reaction sertraline AdvReac Confusion Verified 08/28/21 08:45 Home Medications Medication Instructions Recorded Confirmed Type ibuprofen 800 mg tablet 800 mg PO TID 30 days #90 tabs 03/30/21 08/28/21 Rx amlodipine 5 mg tablet 5 mg PO QAM 08/27/21 08/28/21 History atorvastatin 20 mg tablet 20 mg QAM 08/27/21 08/28/21 History losartan 100 mg tablet 100 mg QAM 08/27/21 08/28/21 History Patient hx anesthesia problems: none Family hx anesthesia problems: none Results Review: All pre-operative results and documents have been reviewed as part of the pre-operative evaluation. ON LICENSE OF [facility] Past Medical History Medical History Essential (primary) hypertension Generalized anxiety disorder Generalized osteoarthritis Hyperlipidemia Major depressive disorder, recurrent episode, mild with anxious distress Surgical History Surgical History History of appendectomy History of cardiac radiofrequency ablation (08/2020) For SVT [facility] Dr[facility] Le[facility] at [facility]. History of cataract extraction History of right hip replacement History of tubal ligation Family History Family History Sibling Depression Family history of cardiovascular disease Father Family history of glaucoma, Onset Age: 91 Mother Family history of alcoholism, Onset Age: 69 Family history of liver disease, Onset Age: 69 Social History Social History Social History: The patient lives in [place] with her and daughter. Retired from working in a school cafeteria. Lifelong nonsmoker. Drinks perhaps 2 alcoholic beverages a week. No illicit substance use. She designates her son, Allan Wilson, as her surrogate decision maker. Code status: Full code. Smoking status: Never smoker Second hand tobacco smoke exposure: No Additional smoking assessment comments: PT DENIES ALL FORMS OF TOBBACO USE Alcohol intake: current Drinks per week: 2 Alcohol use details: 2-3/MONTH Substance use: never Substance use type: does not use Other substance usage details: STATES COUPLE BITE SIZE BROWNIES 1-2 TIMES A WEEK Last use: 08/23/21 Living arrangements: with family [place] Final PreProcedure Day of Procedure 09/11/21 12:51 Patient weight: normal Heart: regular rate and rhythm Lungs: clear to auscultation Airway: Mallampati scale class II Neurological: alert and oriented Last oral intake: >/= 8 hours ASA classification: III Emergent: no Anesthetic plan: proceed Anesthesia type and monitoring: general ETT and standard monitoring Results Review: All pre-operative results and documents have been reviewed as part of the pre-operative evaluation. Informed Consent: The patient's anesthetic plan and its attendant risks and benefits were discussed with the patient/family/POA. Questions were solicited and answers provided to the satisfaction of the patient/family/POA.
[2021-09-14] VITALS (17 sets, daily range): BP systolic 98–141; BP diastolic 52–77; PULSE 50–82; RESP 10–20; TEMP 36–36.7; O2SAT 94–100
--- NOTE | ~2021-09-14 | XR_ITS ---
EXAMINATION: XR hip LT 1V w AP pelvis DATE: 09/14/2021 11:25 INDICATION: Status post left total hip arthroplasty TECHNIQUE: Anteroposterior and cross-table lateral views of the left hip were obtained. COMPARISON: 05/05/2021 FINDINGS: Bilateral total hip arthroplasties in near-anatomic alignment, unchanged on the right and new since t he prior study on the left. No fracture. Surgical drain and expected soft tissue gas at the operative bed about the left hip. IMPRESSION: 1. Near-anatomic alignment of the newly placed left total hip arthroplasty, negative for postoperativ e purposes. Reviewed, dictated and finalized at location B. IMPRESSION: 1. Near-anatomic alignment of the newly placed left total hip arthroplasty, neg ative for postoperative purposes.
--- NOTE | ~2021-09-14 | XR_ITS ---
EXAMINATION: XR surgery orthopedic DATE: 09/14/2021 10:58 INDICATION: Left total hip arthroplasty TECHNIQUE: Single AP fluoroscopic image of the left hip was obtained during procedure performed by Dr Gloria Matos. Radiologist was not present for the imaging or procedure. The amount of fluoroscopy time u sed during this procedure was 0.9 minutes. COMPARISON: 05/05/2021 FINDINGS: Interval placement of a left total hip arthroplasty which appears well seated in near-anatomic alignm ent. Acetabular component is affixed with at least a single screw. No fracture visualized bones. Expe cted soft tissue gas at the operative bed. IMPRESSION: 1. Expected appearance during left total hip arthroplasty. Reviewed, dictated and finalized at location B.
[2021-09-14] MEDS: LACTATED RINGERS 1,000 ML 30 ML IV CONT ×2 (06:30→11:32)
[2021-09-14] MEDS: TRANEXAMIC ACID 1,000MG/ISO100 1,000 MG/100 ML BAG 200 MG IVPB (07:00)
[2021-09-14] MEDS: ACETAMINOPHEN 500 MG TABLET 1000 MG PO ×4 (07:15→23:46)
--- NOTE | 2021-09-14 07:20 | WPDHPUPDATE1 ---
History and Physical Update Update Date/Time: 09/14/21 07:20 History and Physical has been reviewed, including an updated exam of the patient.Patient is 75 years old. There are NO changes in the patient's condition. Risks, benefits, and alternatives have been discussed and questions answered. Patient agrees to proceed with procedure.
[2021-09-14] MEDS: ceFAZolin 2 GM/D5W 50 ML 2 GM/50 ML BAG IVPB (07:39)
[2021-09-14] MEDS: ceFAZolin SODIUM 1 GM VIAL 3 GM IRRIGATION (07:52)
[2021-09-14] MEDS: ceFAZolin SODIUM 1 GM VIAL IV PUSH (10:51)
[2021-09-14] MEDS: TRANEXAMIC ACID 1,000 MG/10 ML AMPUL 1000 MG IV PUSH (10:55)
--- NOTE | 2021-09-14 11:46 | P.OP_ITS ---
Procedure Note - Detailed Date of Procedure 09/14/21 Pre-op Diagnosis oa left hip Post-op Diagnosis Same Procedure Performed Direct anterior approach left total hip arthroplasty Surgeon Renny Matos MD Office [facility] Anesthesia General Description of Procedure Patient was brought to the operating room general anesthesia was administered. She received 2 g Ancef weight based vancomycin and 1 g of tranexamic acid. Boots were applied to the feet with extra pattern padding and [facility] hip prepped draped usual fashion. 10 cm longitudinal incision was made starting 3 cm lateral to the ASIS. The fascia over the tensor fascia tanner was exposed and longitudinally incised and elevated off the anterior 1/2 the TFL muscle. Crossing vessels from a ascending lateral femoral circumflex vessels were ligated with suture divided. Retractor placed on anterior capsule and the hip abducted internally rotated the gluteus minimus elevated off the lateral capsule. Inverted T capsulotomy was performed femoral neck osteotomy made according to preoperative templating. The femoral head was removed. It measured 47 mm in diameter and was eburnated superiorly with bone wear. The leg was externally rotated extended and the interval bet ween conjoined tendon and piriformis was incised allowing the piriformis to flipped posteriorly. With the leg back horizontal traction external rotation acetabulum was exposed labrum excised. This was prepared reaming up to a 51 mm Reamer and the rim lightly touched with the 52. We placed the 52 cup Herrick which could not be inserted until the very large inferior osteophyte was partially resected. The cup inserted fully with excellent press fit 40? of abduction anteversion matching the anatomy single screw placed in the ilium and 36 inner diameter liner placed. The femur was broached to a size 3 which gave complete torsional stability. We trialed and it was a bit tight with the 1.5 and had ample laxity with the-2 head. I felt this gave inadequate offset but leg lengths were equal with this construct. We countersunk the broach another 3 mm and trialed with the 1.5 which gave appropriate stability and soft tissue tension and again equal leg lengths. There was complete torsional stability of the stem. We calcar planed and placed the size 3 high offset Actis stem. This came to rest about a mm from sitting on the planed calcar and would go no further. We trialed again with a 1.5 head and there was ample Shuck but excellent stability. The 1.5 x 36 mm ceramic head was impacted onto the clean and dried trunnion after through irrigation with antibiotic solution the hip re duced stability reconfirmed. Capsule was reapproximated with 2. Vicryl is a. 1. Running Vicryl and the fascia drain in the subcu skin closed with 2 subcutaneous Vicryl and glue EBL was 500 cc. Two hundred fifty given back as Cell Saver. 3rd g Ancef 2nd g of tranexamic acid given time wound closure. No known complications. Bone quality seemed excellent so we will lower to be weight-bearing as tolerated. Estimated Blood Loss -500.0
[2021-09-14] MEDS: fentaNYL CITRATE INJ (*CRX) 100 MCG/2 ML VIAL 25 MCG IV PUSH ×4 (11:57→12:40)
--- NOTE | 2021-09-14 12:26 | SUR.PHASEI ---
PT RESTING QUIETLY. AROUSES EASILY TO VERBAL STIMULI. C/O MODERATE CRAMPING TO LT HIP. FENTANYL GIVEN PRN.
--- NOTE | 2021-09-14 13:02 | SUR.PHASEI ---
PT RESTING QUIETLY. ABLE TO SLEEP IN INTERVALS.
--- NOTE | 2021-09-14 13:58 | ADMGEN ---
This patient, Noni Wilson, was admitted to 2 Medical Room 255-01. Patient/family oriented to hospital policies and general routines including ID bracelet, bed and alarms, visiting hours, pain management, procedures, bathroom and other care routines, personal items, smoking policy, room service/diet, and visiting hours. Information on how to activate the Rapid Response Team has been discussed. Patient/Family are encouraged to report perceived risks to care and to ask questions if they do not understand what they are told or what they should do. Report received from KAUSHIK Gordon.
[2021-09-14] MEDS: SODIUM CHLORIDE 0.9% IV 1,000 ML 125 ML IV CONT ×2 (14:48→23:45)
[2021-09-14] MEDS: oxyCODONE HCL (*CRX) 5 MG TAB IR PO ×2 (16:16→21:22)
[2021-09-14] MEDS: SENNA/DOCUSATE SODIUM TABLET 2 TAB PO (16:16)
--- NOTE | 2021-09-14 17:58 | PM.IMCN ---
Assessment and Plan Assessment and plan (1) Status post total hip replacement, left: Code(s): Z96.642 - Presence of left artificial hip joint Status: Acute Assessment and Plan: POD 0 Post op care per ortho Pain medications: Oxycodone 2.5mg PO Q4H SHAKEEL and PRN, Morphine 2mg IV Q3H PRN . Cefazolin X3 bags, vancomycin x 2 bags Bowel: Miralax and Senna Ice pack DVT Eliquis 2.5mg PO Q12H PT/OT Weight-bearing status full (2) Osteoarthritis of left hip: Qualifiers: Osteoarthritis type: primary Qualified Code(s): M16.12 - Unilateral primary osteoarthritis, left hip Code(s): M16.12 - Unilateral primary osteoarthritis, left hip Status: Acute Assessment and Plan: See above (3) Major depressive disorder, recurrent episode, mild with anxious distress: Code(s): F33.0 - Major depressive disorder, recurrent, mild Status: Acute Assessment and Plan: Has moments of anxiety and depression Atarax on board No home medications to treat Continue to monitor mood (4) Essential (primary) hypertension: Code(s): I10 - Essential (primary) hypertension Status: Acute Assessment and Plan: BP 125/57 Continue home amlodipine 5 mg daily and losartan 100 mg daily Trend blood pressure Adjust therapy as indicated (5) Hyperlipidemia: Qualifiers: Hyperlipidemia type: mixed hyperlipidemia Qualified Code(s): E78.2 - Mixed hyperlipidemia Code(s): E78.5 - Hyperlipidemia, unspecified Status: Acute Assessment and Plan: Continue home atorvastatin Check LFTs in the a.m. HPI Data of Consult Consult date: 09/14/21 Requesting Physician: Renny Matos MD Primary Care Provider: Ishan Simmons MD Consult Narrative Reason for consult: Medical management Narrative: Noni Wilson is a 75 year old female with past medical history of anxiety, depression, hyperlipidemia, hypertension is here for a left total hip replacement with Dr. Boyd on 09/14/2021. Currently patient stated that she is doing really well. She denies having any pain. She did state that she got dizzy after surgery say that it was probably from lack of sleep. She also stated that she was not hungry at that time either. She did get a nap in and now she feels better and is ready to eat. She is more focused in interested in her who is at [place] for 8 broken ribs since he rolled his lawn more. She currently denies any chest pain, shortness of breath, nausea, vomiting, diarrhea, constipation, weakness or fatigue. She does really want to get out here quite quickly. We were asked to be consulted on this case for medical management Review of Systems Review of Systems: All systems reviewed & are unremarkable except as noted in HPI and below PMFSH Past Medical History Medical History Essential (primary) hypertension Generalized anxiety disorder Generalized osteoarthritis Hyperlipidemia Major depressive disorder, recurrent episode, mild with anxious distress Surgical History Surgical History History of appendectomy History of cardiac radiofrequency ablation (08/2020) For SVT per Dr. Leach at [facility]. History of cataract extraction History of right hip replacement History of total left hip arthroplasty (~09/14/21) History of tubal ligation Family History Family History Sibling Depression Family history of cardiovascular disease Father Family history of glaucoma, Onset Age: 91 Mother Family history of alcoholism, Onset Age: 69 Family history of liver disease, Onset Age: 69 Social History Social History (Updated 09/14/21 @ 18:01 by GRACIE Evangelista) Social History: T
[2021-09-14] MEDS: ONDANSETRON INJ 4 MG/2 ML VIAL IV PUSH (18:33)
[2021-09-14] MEDS: FAMOTIDINE 20 MG TABLET PO (21:22)
[2021-09-15] MEDS: oxyCODONE HCL (*CRX) 5 MG TAB IR PO ×4 (01:00→11:59)
[2021-09-15 01:04] VITALS: BP 120/60
[2021-09-15 03:19] VITALS: BP 123/44; PULSE 77; RESP 20; TEMP 36.5; O2SAT 95
[2021-09-15] MEDS: ACETAMINOPHEN 500 MG TABLET 1000 MG PO ×2 (05:35→11:58)
[2021-09-15 06:04] LABS: Basophils Percent Auto 0.2 % (0.2-1.2); Eosinophils Percent Auto 0.2 % (0-4.4); Hematocrit 30.6 % (37.0-47.0); Hemoglobin 10.3 g/dL (12.0-15.0); Immature Granulocyte Absolute 0.04 K/mm3 (0.00-0.031); Immature Granulocyte Percent A 0.4 % (0-0.5); Lymphocytes Absolute Auto 1.29 K/mm3 (0.9-3.2); Lymphocytes Percent Auto 12.3 % (18.3-44.2); Mean Corpuscular HGB Conc 33.7 g/dl (32-36); Mean Corpuscular Hemoglobin 29.9 pg (26-34); Mean Platelet Volume 9.3 fl (7.4-10.4); Monocytes Absolute Auto 1.1 K/mm3 (0.1-0.6); Monocytes Percent Auto 10.8 % (2.6-8.5); Neutrophils Percent Auto 76.1 % (45.5-73.1); Platelet Count Result 178 k/mm3 (150-375); Red Blood Count 3.44 M/mm3 (4.2-5.4); Red Cell Distribution Width 12.8 % (11.5-14.5); White Blood Count 10.5 K/mm3 (4.5-10.0)
[2021-09-15 06:21] LABS: Alanine Aminotransferase 13 U/L (6-35); Albumin Level 2.7 g/dL (3.5-5.1); Alkaline Phosphatase 50 U/L (38-126); Anion Gap 2 mmol/L (8-16); Aspartate Amino Transferase 24 U/L (14-36); Bilirubin,Total 0.2 mg/dL (0.2-1.3); Blood Urea Nitrogen 9 mg/dL (7-17); Calcium 7.9 mg/dL (8.4-10.2); Carbon Dioxide 27 mmol/L (22-30); Chloride 107 mmol/L (98-107); Estimated CRCL calculation 59 ml/min; Estimated Glomerular Filt Rate > 60; Glucose 109 mg/dL (65-110); Magnesium 1.6 mg/dL (1.6-2.3); Potassium 3.9 mmol/L (3.4-5.0); Sodium 136 mmol/L (137-145)
--- NOTE | 2021-09-15 06:23 | PM.PNORT ---
Subjective Subjective Date/Time Seen: 09/15/21 06:23Day 1 patient is alert. Afebrile vital signs are stable. Morning labs are noted. Patient's drain is out. She was up walking with physical therapy yesterday. Dressing is dry. Pain is very well controlled. Patient is very happy with the way she feels. Neurovascular she is intact. Overall patient is doing very well. She is anxious to go home. Will have patient work with physical therapy this morning if she is comfortable we will lower to go home after antibiotics are done. If she feels that she needs to do additional therapy she will stay for the 2nd therapy session today and then go home early this afternoon. Objective Data Vital Signs Vital Signs: Vital Signs - 24 hr 09/14/21 06:30 09/14/21 11:32 09/14/21 11:45 Temperature 36.7 C 36.6 C Pulse Rate 82 65 68 Respiratory Rate 18 10 L 16 Blood Pressure 140/68 120/59 L 124/77 Pulse Oximetry 97 100 100 Oxygen Delivery Room Air Simple Face Mask Simple Face Mask Oxygen Flow Rate 6 6 09/14/21 12:00 09/14/21 12:15 09/14/21 12:30 Temperature Pulse Rate 62 58 L 55 L Respiratory Rate 12 12 14 Blood Pressure 136/63 132/62 125/58 L Pulse Oximetry 100 97 96 Oxygen Delivery Simple Face Mask Room Air Room Air Oxygen Flow Rate 6 09/14/21 12:45 09/14/21 13:00 09/14/21 13:15 Temperature Pulse Rate 50 L 50 L 50 L Respiratory Rate 12 14 12 Blood Pressure 113/55 L 117/54 L 110/53 L Pulse Oximetry 97 98 96 Oxygen Delivery Room Air Room Air Room Air Oxygen Flow Rate 09/14/21 13:30 09/14/21 14:41 09/14/21 13:50 Temperature 36.2 C L Pulse Rate 62 68 Respiratory Rate 12 14 Blood Pressure 123/53 L 141/60 H Pulse Oximetry 97 95 Oxygen Delivery Room Air Room Air Oxygen Flow Rate 09/14/21 14:05 09/14/21 14:35 09/14/21 15:35 Temperature 36.6 C 36.4 C L 36.6 C Pulse Rate 69 68 58 L Respiratory Rate 12 14 14 Blood Pressure 117/52 L 112/56 L 125/57 L Pulse Oximetry 97 96 94 Oxygen Delivery Oxygen Flow Rate 09/14/21 17:57 09/14/21 20:00 09/14/21 19:20 Temperature 36.3 C L Pulse Rate 70 Respiratory Rate 20 Blood Pressure 128/64 Pulse Oximetry 96 Oxygen Delivery Room Air Room Air Oxygen Flow Rate 09/14/21 20:30 09/14/21 23:20 09/15/21 01:04 Temperature 36.3 C L 36.0 C L Pulse Rate 70 70 Respiratory Rate 20 18 Blood Pressure 128/64 98/60 L 120/60 Pulse Oximetry 96 95 Oxygen Delivery Oxygen Flow Rate 09/15/21 03:19 Temperature 36.5 C Pulse Rate 77 Respiratory Rate 20 Blood Pressure 123/44 L Pulse Oximetry 95 Oxygen Delivery Oxygen Flow Rate Intake/Output Intake/Output: Intake & Output 09/12/21 09/13/21 09/14/21 09/15/21 23:59 23:59 23:59 23:59 Intake Total 2280 440 Output Total 300 740 Balance 1979 - Meds/Results Medications: Active Medications Generic Name Dose Route Start Last Admin Trade Name Freq PRN Reason Stop Dose Admin Acetaminophen 1,000 mg 09/14/21 12:00 09/15/21 05:35 Acetaminophen 500 Mg Tablet PO 1,000 mg Q6HR [facility] Administration Amlodipine Besylate 5 mg 09/15/21 09:00 Amlodipine Besylate 5 Mg Tablet PO QAM [facility] Apixaban 2.5 mg 09/15/21 09:00 Apixaban 2.5 Mg Tablet PO Q12HR [facility] Atorvastatin Calcium 20 mg 09/15/21 09:00 [facility]orvastatin 20 [facility] [place] Celecoxib 200 mg 09/15/21 09:00 Celecoxib 200 Mg Capsule PO DAILY [facility] Famotidine 20 mg 09/14/21 21:00 09/14/21 21:22 Famotidine 20 Mg Tablet PO 20 mg Q12HR [facility] Administration Hydroxyzine HCl 50 mg 09/14/21 13:35 Hydroxyzine Hcl 25 Mg Tablet PO Q4H PRN Itching Vancomycin HCl 1,000 mg in 250 mls @ 250 mls/hr 09/14/21 19:00 09/14/21 20:20 Vancomycin 1,000 Mg/D5w 250 Ml IVPB 09/15/21 07:59 Infused Q12H [facility] Infusion Cefazolin Sodium 1 gm in 50 mls @ 100 mls/hr 09/14/21 15:00 09/15/21 06:08 Ancef 1 Gm/D5w 50 Ml Pm IVPB 09/15/21 07:29 10
--- NOTE | 2021-09-15 06:31 | PM.DS ---
DS: Admitting Diagnosis Discharge Date 09/15 Admitting Diagnosis left hip DJD DS: Discharge Diagnosis Discharge Diagnosis Plan 75-year-old female who underwent left anterior total hip arthroplasty on 09/14. Underwent the procedure without complications. Postoperatively she has been afebrile vital signs stable. Neurovascular she is intact. She is weight-bearing as tolerated. She was up to date of surgery walking with therapy. She has been to the restroom multiple times on postop day 1. Pain is well controlled. She is on scheduled Tylenol as well as oxycodone 5 mg. She is also on Celebrex 200 mg once a day for the 1st 10 days. Her drain is out on postop day 1. Her incisions dry. Patient is doing very well she is anxious to go home. Will have patient work with physical therapy on postop day 1 if she continues to do well will plan to discharge her home later that day. She does go home on MiraLax and Senokot for constipation. Patient was advised to be up walking but not to overdo her activities. She should let pain in the hip Guide Her as far as activities. She should keep leg elevated at home prevent swelling. patient was advised any questions or concerns when she goes home she should call the office otherwise we will see her at her appointed date. DS: Summary Hospital Course Hospital Course: stable Time Spent with Patient Time attestation: Total time spent providing and/or coordinating discharge services: DS: Data Data Completed and Pending Labs on day of discharge: Labs from last 24 hours 09/15/21 09/15/21 09/14/21 05:51 05:51 07:00 WBC 10.5 H RBC 3.44 L Hgb 10.3 L D Hct 30.6 L MCV 89.0 MCH 29.9 MCHC 33.7 RDW 12.8 Plt Count 178 MPV 9.3 Immature Gran % (Auto) 0.4 Neut % (Auto) 76.1 H Lymph % (Auto) 12.3 L [place] % (Auto) 10.8 H Eos % (Auto) 0.2 Baso % (Auto) 0.2 Lymph # (Auto) 1.29 [place] # (Auto) 1.1 H Eos # (Auto) 0.0 Baso # (Auto) 0.0 Abs Immat Gran (auto) 0.04 H Absolute Neuts (auto) 8.0 H Absolute Nucleated RBC 0.0 Nucleated RBC % 0.0 Sodium 136 L Potassium 3.9 Chloride 107 Carbon Dioxide 27 Anion Gap 2 L BUN 9 D Creatinine 0.60 L Estim Creat Clear Calc 59 Estimated GFR > 60 Glucose 109 Calcium 7.9 L Magnesium 1.6 Total Bilirubin 0.2 AST 24 ALT 13 Alkaline Phosphatase 50 Total Protein 5.0 L Albumin 2.7 L Blood Type O Positive Antibody Screen Negative Discharge Plan Discharge Patient Disposition: Home, Self-Care Discharge Instructions: RENNY MATOS M.D [facility], [place] [address] [place] [address] POST-OPERATIVE DISCHARGE INSTRUCTIONS ANTERIOR TOTAL HIP ARTHROPLASTY 1. Move toes/feet up and down every hour while awake. 2. Be up walking every hour while awake. 3. Use cane in hand opposite of side of hip surgery or walker as comfort allows. Avoid sitting in a chair unless eating, receiving visitors or using the toilet. 4. When resting, lie on back with leg elevated above heart to minimize swelling. Significant swelling could indicate a blood clot and if this occurs, call the office (or go to the ER) to have a venous ultrasound performed. 5. Wound Care: Keep dry sponge on wound for 2 weeks. Use minimal tape. . 6. May shower with dressing off. Stand Alone Forms: General Discharge Instructions Follow-up/Referrals: Renny Matos MD [Physician] - Keep Reg. Scheduled Appt. Discharge Medications: New acetaminophen 500 mg Tablet 1,000 mg PO Q6HR Qty: 90 0RF Eliquis 2.5 mg Tablet 2.5 mg PO Q12HR Qty: 69 0RF celecoxib [Celebrex] 200 mg Capsule 200 mg PO DAILY Qty: 10 0RF sennosides-docusate sodium [Senokot-S] 8.6-50 mg Tablet 2 tab-cap PO BID Qty: 60 0RF oxycodone 5 mg Tablet 5 mg PO Q4HR Qty: 30 0RF polyethylene glycol 3350
--- NOTE | 2021-09-15 07:50 | P.PNAN_ITS ---
Anes - Prog Note Post-Op Date/Time: 09/15/21 07:50 Cardiovascular status: normal Respiratory status: normal Airway patency: baseline Mental status: baseline Post-Op hydration status: normal Vital Signs: Last Vital Signs Temp 36.5 C 09/15/21 03:19 Pulse 77 09/15/21 03:19 Resp 20 09/15/21 03:19 BP 123/44 L 09/15/21 03:19 Pulse Ox 95 09/15/21 03:19 O2 Del Method Room Air 09/14/21 20:00 O2 Flow Rate 6 09/14/21 12:00 Pain Score (VAS): 0 I/O: Intake & Output 09/14/21 09/14/21 09/15/21 15:59 23:59 07:59 Intake Total 300 1730 490 Output Total 300 740 Balance 300 1430 -250 Laboratory Tests 09/15/21 05:51 09/15/21 05:51 09/14/21 09/15/21 09/15/21 07:00 05:51 05:51 WBC 10.5 H RBC 3.44 L Hgb 10.3 L D Hct 30.6 L MCV 89.0 MCH 29.9 MCHC 33.7 RDW 12.8 Plt Count 178 MPV 9.3 Immature Gran % (Auto) 0.4 Neut % (Auto) 76.1 H Lymph % (Auto) 12.3 L [place] % (Auto) 10.8 H Eos % (Auto) 0.2 Baso % (Auto) 0.2 Lymph # (Auto) 1.29 [place] # (Auto) 1.1 H Eos # (Auto) 0.0 Baso # (Auto) 0.0 Abs Immat Gran (auto) 0.04 H Absolute Neuts (auto) 8.0 H Absolute Nucleated RBC 0.0 Nucleated RBC % 0.0 Sodium 136 L Potassium 3.9 Chloride 107 Carbon Dioxide 27 Anion Gap 2 L BUN 9 D Creatinine 0.60 L Estim Creat Clear Calc 59 Estimated GFR > 60 Glucose 109 Calcium 7.9 L Magnesium 1.6 Total Bilirubin 0.2 AST 24 ALT 13 Alkaline Phosphatase 50 Total Protein 5.0 L Albumin 2.7 L Blood Type O Positive Antibody Screen Negative Post-procedural complaints: none Patient Feedback: Patient satisfied with anesthetic care.
[2021-09-15] MEDS: SENNA/DOCUSATE SODIUM TABLET 2 TAB PO (08:36)
[2021-09-15] MEDS: LOSARTAN POTASSIUM 100 MG TABLET BY MOUTH (08:36)
[2021-09-15] MEDS: FAMOTIDINE 20 MG TABLET PO (08:36)
[2021-09-15] MEDS: ATORVASTATIN 20 MG TABLET BY MOUTH (08:37)
[2021-09-15] MEDS: amLODIPine BESYLATE 5 MG TABLET PO (08:37)
[2021-09-15] MEDS: CELECOXIB 200 MG CAPSULE PO (08:37)
[2021-09-15] MEDS: APIXABAN 2.5 MG TABLET PO (08:37)
[2021-09-15] MEDS: polyethylene glycoL 3350 17 GM POWD.PACK PO (08:38)
[2021-09-15 08:43] VITALS: BP 122/64
--- NOTE | 2021-09-15 09:54 | PM.IMPN ---
Progress Note: A&P Assessment and Plan (1) Status post total hip replacement, left: Code(s): Z96.642 - Presence of left artificial hip joint Status: Acute Assessment and Plan: POD 1 Management per Ortho (2) Osteoarthritis of left hip: Qualifiers: Osteoarthritis type: primary Qualified Code(s): M16.12 - Unilateral primary osteoarthritis, left hip Code(s): M16.12 - Unilateral primary osteoarthritis, left hip Status: Acute Assessment and Plan: See above (3) Major depressive disorder, recurrent episode, mild with anxious distress: Code(s): F33.0 - Major depressive disorder, recurrent, mild Status: Acute Assessment and Plan: Has moments of anxiety and depression No home medications to treat Stable. (4) Essential (primary) hypertension: Code(s): I10 - Essential (primary) hypertension Status: Acute Assessment and Plan: BP 122/64, HR 77 She had slightly soft BP postop overnight, but is stable now and asymptomatic. Continue home amlodipine 5 mg daily and losartan 100 mg daily (5) Hyperlipidemia: Qualifiers: Hyperlipidemia type: mixed hyperlipidemia Qualified Code(s): E78.2 - Mixed hyperlipidemia Code(s): E78.5 - Hyperlipidemia, unspecified Status: Acute Assessment and Plan: Continue home atorvastatin LFTs within normal limits. Plan Thank you for allowing us to be a part of your case. Patient is doing well on current home medications and we will sign off at this time. Please call for any questions. Time Spent With Patient Time with patient: 15 - 25 minutes Subjective Date/time seen: 09/15/21 09:54 Patient found lying in bed. She reports her left hip is stiff, but not really painful. She worked with therapy today and did well. She is worried about her who is hospitalized following a payment rep accident. He had colon surgery today. No c/o chest pain, shortness of breath, palpitations, abdominal pain, N/V/D, dysuria or paresthesias. She reports that she will be discharged today. Review of Systems Review of Systems: All systems reviewed & are unremarkable except as noted in HPI and below Exam Narrative: General:?Well-developed older adult female lying in bed. No acute distress. HEENT:??Normocephalic. PERRL, EOMI. Conjunctivae anicteric. Mucous membranes moist. Oropharynx clear. Neck:??Supple. No JVD. Respiratory:?Lungs are clear to auscultation bilaterally. No retractions. Cardiovascular:??Regular rate and rhythm with S1-S2; split S2 LSB 2nd intercostal space. No murmur, gallop or rub. Gastrointestinal:??Abdomen is soft, round, and non-tender to palpation with positive bowel sounds. Skin:??Warm and dry. Fair and normal for ethnicity. No rashes or lesions. Left hip surgical dressing clean, dry and intact without shadow drainage. Surrounding skin without erythema. Extremities:??No cyanosis, clubbing, or edema. Radial and dorsalis pedis pulses +2 bilaterally. Neurological:??Alert and oriented x3. Cranial nerves 2-12 are grossly intact. No gross focal deficits to casual conversation. Psychiatric:??Pleasant and cooperative. Neutral mood and affect. Objective Data Vital Signs Vital Signs: Vital Signs - 24 hr 09/14/21 11:32 09/14/21 11:45 09/14/21 12:00 Temperature 97.8 F Pulse Rate 65 68 62 Respiratory Rate 10 L 16 12 Blood Pressure 120/59 L 124/77 136/63 Pulse Oximetry 100 100 100 Oxygen Delivery Simple Face Mask Simple Face Mask Simple Face Mask Oxygen Flow Rate 6 6 6 09/14/21 12:15 09/14/21 12:30 09/14/21 12:45 Temperature Pulse Rate 58 L 55 L 50 L Respiratory Rate 12 14 12 Blood Pressure 132/62 125/58 L 113/55 L Pulse Oximetry 97 96 97 Oxygen Delivery Room Air Room Air Room Air Oxygen Flow Rate 09/14/21 13:00 09/14/21 13:15 09/14/21 13:30 Temperature Pulse Rate 50 L 50 L 62 Respiratory R
[2021-09-15 10:23] VITALS: BP 101/44; PULSE 66; RESP 16; TEMP 36.4; O2SAT 97
[2021-09-15 10:42] VITALS: BMI 27.4
--- NOTE | 2021-09-15 13:07 | PCNSR ---
On 09/15/21, the student, Rowdy Nava, provided care and completed [facility] documentation on this patient. I have reviewed the student's documentation and agree with the findings.
== END 2021-09-15 12:30 | disposition home or self-care (01) ==
LOC: ANHSURGERY 06:07 → ANH2MED 13:37
PROVIDERS: Nurse Practitioner; Physician Assistant Surgical; PCP Family Medicine; Visit Provider Orthopaedic Surgery
PROC: (CPT 27130; principal; 2021-09-14 07:30)
DX: M16.12 Unilateral primary osteoarthritis, left hip (principal); F33.0 Major depressive disorder, recurrent, mild; I10 Essential (primary) hypertension; E78.2 Mixed hyperlipidemia; F41.1 Generalized anxiety disorder
CPT/HCPCS: 27130; 36415; 73501; 80048; 80053; 80307; 82040; 83036; 83735; 85025; 86850; 86900; 86901; 87070; 97110; 97116; 97161; 97165; 97530; 97535; 99199; A9270; C1776; J0171; J0690; J1100; J1170; J1885; J2250; J2270; J2405; J2704; J2795; J3010; J3370; J7030; J7120

== ENCOUNTER 2023-02-09 18:21 | Observation (INO) | payer MEDICARE, SELFPAY ==
--- NOTE | ~2023-02-09 | XR_ITS ---
EXAMINATION: XR chest 2V Exam Date/Time: 02/09/2023 21:25 PACKING SUPERVISOR HISTORY: fall, RIGHT SIDE rib pain Comparison: 10/12/2020. RESULT: Lines, tubes, and devices: None. Lungs and pleura: Senescent changes, otherwise clear. Cardiomediastinal silhouette: Stable. Other: No acute osseous or upper abdominal finding. IMPRESSION: No acute cardiopulmonary process. Reviewed, dictated and finalized at location K. ING SUPERVISOR
--- NOTE | ~2023-02-09 | CT_ITS ---
Clinical Indication: Chest pain, abdominal pain CT Scan of the Chest, Abdomen, and Pelvis with Contrast: Technique: Contiguous sections were acquired throughout the chest, abdomen, and pelvis after intraven ous administration of 100 cc of Omnipaque 350. Dose reduction technique was used on this scan by uti lizing automated exposure control and iterative reconstruction technique. The dose-length product (DL P) was 668.41 mGy-cm. Findings: There is no evidence of any significant mediastinal, hilar or axillary lymphadenopathy. The mediastin al soft tissues and vascular structures appear normal. There is no evidence of pleural or pericardial effusion. The lungs are clear, aside from minimal dependent atelectatic changes. There are minimally displaced fractures of the right eighth, ninth, 10th, 11th ribs. The liver, spleen, pancreas, and adrenal glands are within normal limits. Cholelithiasis noted. 3 mm nonobstructing right renal stone present. Bilateral parapelvic renal cysts present. There are atheros clerotic calcifications of the aorta. No lymphadenopathy. No bowel obstruction or bowel wall thickening. There is no evidence to suggest acute appendicitis. There is streak artifact in the pelvis from bilateral hip arthroplasty. Urinary bladder appears unrem arkable. No pelvic mass evident. No ascites. Impression: Acute fractures of the right eighth, ninth, 10th, 11th ribs. Mild bibasilar atelectatic change. Cholelithiasis. 3 mm nonobstructing right renal stone. Reviewed, dictated and finalized at [facility]. ETES EDUCATION COORDINATOR Impression: Acute fractures of the right eighth, ninth, 10th, 11th ribs. Mild bibasilar atelectatic change. Cholelithiasis. 3 mm nonobstructing right renal stone.
[2023-02-09 18:24] VITALS: BP 142/67; PULSE 76; RESP 20; TEMP 37.2; O2SAT 98
[2023-02-10] VITALS (10 sets, daily range): BP systolic 106–150; BP diastolic 57–94; PULSE 59–81; RESP 12–17; TEMP 36.3–36.7; O2SAT 94–100; BMI 25.1
--- NOTE | 2023-02-10 01:27 | ED.FALL ---
HPI - Fall General Chief Complaint: Fall Stated Complaint: fall Time Seen by Provider: 02/10/23 00:07 History of Present Illness HPI Narrative: patient is a 77-year-old female with a history of hyperlipidemia, hypertension presenting after a fall. Patient states that she was doing laundry when she slipped on a rug and she fell onto her right side landing against the bathtub rim. States that she has severe pain in her right lateral chest and her right abdomen. She did not strike her head or lose consciousness. No neck or back pain. No shortness of breath. No lightheadedness. No further complaints. Related Data Allergies Allergy/AdvReac Type Severity Reaction Status Date / Time adhesive Allergy Unknown SKIN Verified 02/10/23 00:06 IRRITATION latex Allergy Unknown Skin Verified 02/10/23 00:06 Reaction sertraline AdvReac Confusion Verified 02/10/23 00:06 Review of Systems Review of Systems: All systems reviewed & are unremarkable except as noted in HPI and below PMFSH Past Medical History Medical History Essential (primary) hypertension Generalized anxiety disorder Generalized osteoarthritis Hyperlipidemia Major depressive disorder, recurrent episode, mild with anxious distress Surgical History Surgical History History of appendectomy History of cardiac radiofrequency ablation (08/2020) For SVT per Dr. Leach at [facility]. History of cataract extraction History of right hip replacement History of total left hip arthroplasty (~09/14/21) History of tubal ligation Family History Family History Sibling Depression Family history of cardiovascular disease Father Family history of glaucoma, Onset Age: 91 Mother Family history of alcoholism, Onset Age: 69 Family history of liver disease, Onset Age: 69 Social History Social History Social History: The patient lives in [place] with her and daughter. Retired from working in a school cafeteria. Lifelong nonsmoker. Drinks perhaps 2 alcoholic beverages a week. No illicit substance use. She designates her son, Allan Wilson, and daughter Marleny as her surrogate decision maker. Code status: Full code. Smoking status: Never smoker Second hand tobacco smoke exposure: No Additional smoking assessment comments: PT DENIES ALL FORMS OF TOBBACO USE Alcohol intake: never Drinks per week: 2 Alcohol use details: 2-3/MONTH Substance use: current Substance use type: marijuana Other substance usage details: STATES COUPLE BITE SIZE BROWNIES 1-2 TIMES A WEEK Last use: 08/23/21 Lack of Transportation: No Lack of Food: Never True Current Housing: I Have Housing Concerned About Future Housing: No Difficulty Paying Gas/Electric Bills: No Difficulty Paying for Meds: No Currently Unemployed: No Education: High School Diploma/GED Difficulty w/ Childcare or Family Care: No Living arrangements: with family Occupation/Education: retired Gender identity (if verbalized by the patient): Female Sexual Orientation (if Verbalized by the Patient): Straight or Heterosexual Spiritual care concerns: No Agree to blood products: Yes Exam Narrative: GENERAL: Elderly female lying in bed, intermittently in moderate distress due to pain with movements HEAD: Normocephalic, atraumatic. EYES: PERRLA and EOMI. ENT: grossly unremarkable NECK: Supple. no midline tenderness CHEST: Clear to auscultation. No respiratory distress. tender on lateral right chest wall into upper abdomen HEART: Regular rate and rhythm ABDOMEN: Soft, tender in RUQ, no guarding or rebound EXTREMITIES: Normal range of motion. No edema. SKIN: Warm, dry, no rash. NEURO: No focal deficits. Alert and orie
[2023-02-10] MEDS: SODIUM CHLORIDE 0.9% IV 1,000 ML 999 ML IV CONT (01:41)
[2023-02-10] MEDS: ONDANSETRON INJ 4 MG/2 ML VIAL IV PUSH (01:41)
[2023-02-10] MEDS: HYDROmorphone HCL INJ (*CRX) 1 MG/ML SYR 0.5 MG IV PUSH ×2 (01:41→02:25)
[2023-02-10 01:55] LABS: Basophils Percent Auto 0.4 % (0.2-1.2); Eosinophils Absolute Auto 0.1 K/mm3 (0-0.3); Eosinophils Percent Auto 1.1 % (0-4.4); Hematocrit 42.8 % (37.0-47.0); Hemoglobin 14.2 g/dL (12.0-15.0); Immature Granulocyte Absolute 0.02 K/mm3 (0.00-0.031); Immature Granulocyte Percent A 0.2 % (0-0.5); Lymphocytes Absolute Auto 1.57 K/mm3 (0.9-3.2); Lymphocytes Percent Auto 17.6 % (18.3-44.2); Mean Corpuscular HGB Conc 33.2 g/dl (32-36); Mean Corpuscular Hemoglobin 29.8 pg (26-34); Mean Corpuscular Volume 89.9 fl (80-100); Mean Platelet Volume 9.4 fl (7.4-10.4); Monocytes Absolute Auto 0.8 K/mm3 (0.1-0.6); Monocytes Percent Auto 9.3 % (2.6-8.5); Neutrophils Absolute Auto 6.4 K/mm3 (1.3-6.7); Neutrophils Percent Auto 71.4 % (45.5-73.1); Platelet Count Result 269 k/mm3 (150-375); Red Blood Count 4.76 M/mm3 (4.2-5.4); White Blood Count 8.9 K/mm3 (4.5-10.0)
[2023-02-10 02:21] LABS: Alanine Aminotransferase 16 U/L (6-35); Albumin Level 4.3 g/dL (3.5-5.1); Alkaline Phosphatase 82 U/L (38-126); Anion Gap 6 mmol/L (8-16); Aspartate Amino Transferase 23 U/L (14-36); Bilirubin,Total 0.6 mg/dL (0.2-1.3); Blood Urea Nitrogen 15 mg/dL (7-17); Calcium 9.5 mg/dL (8.4-10.2); Carbon Dioxide 28 mmol/L (22-30); Chloride 105 mmol/L (98-107); Estimated CRCL calculation 55 ml/min; Estimated Glomerular Filt Rate > 60; Glucose 112 mg/dL (65-110); Potassium 4.3 mmol/L (3.4-5.0); Sodium 139 mmol/L (137-145)
[2023-02-10] MEDS: oxyCODONE/ACETAMINOPHEN (*CRX) 5-325 MG TABLET 1 TABLET PO ×5 (03:52→21:17)
[2023-02-10] MEDS: KETOROLAC 30 MG/ML VIAL (*BKC) IV PUSH (06:16)
--- NOTE | 2023-02-10 08:48 | ADMGEN ---
This patient, Noni Wilson, was admitted to [address] [place] [address] Room 304-02 at 0825. Patient/family oriented to hospital policies and general routines including ID bracelet, bed and alarms, visiting hours, pain management, procedures, bathroom and other care routines, personal items, smoking policy, room service/diet, and visiting hours. Information on how to activate the Rapid Response Team has been discussed. Patient/Family are encouraged to report perceived risks to care and to ask questions if they do not understand what they are told or what they should do.
--- NOTE | 2023-02-10 09:49 | PCOTNOTE ---
Attempted to see pt. for occupational therapy evaluation. Per nursing, pt. has not yet been admitted to floor, as she has arrived in the last hour. Needs further work-up prior to being evaluated by therapy services. Following.
[2023-02-10] MEDS: LOSARTAN POTASSIUM 100 MG TABLET BY MOUTH (10:58)
[2023-02-10] MEDS: ATORVASTATIN 20 MG TABLET PO (10:59)
[2023-02-10] MEDS: amLODIPine BESYLATE 5 MG TABLET PO (10:59)
[2023-02-10] MEDS: LIDOCAINE 5% PATCH 1 PATCH TRANSDERM (11:03)
--- NOTE | 2023-02-10 12:59 | PM.IMHP ---
H&P: HPI History of Present Illness Date/Time: 02/10/23 12:59 Chief Complaint: Fall Multiple rib fractures Narrative: 77-year-old female with past medical history of osteoarthritis, generalized anxiety disorder presented to the ER after a fall.According to her she was doing her laundry when she slipped on a rug, and fell while landing on the rim of her bathtub on the right side. Denies any loss of consciousness, denies hitting her head. Review of Systems Review of Systems: All systems reviewed & are unremarkable except as noted in HPI and below PMFSH Past Medical History Medical History Essential (primary) hypertension Generalized anxiety disorder Generalized osteoarthritis Hyperlipidemia Major depressive disorder, recurrent episode, mild with anxious distress Surgical History Surgical History History of appendectomy History of cardiac radiofrequency ablation (08/2020) For SVT per Dr. Leach at [facility]. History of cataract extraction History of right hip replacement History of total left hip arthroplasty (~09/14/21) History of tubal ligation Family History Family History Sibling Depression Family history of cardiovascular disease Father Family history of glaucoma, Onset Age: 91 Mother Family history of alcoholism, Onset Age: 69 Family history of liver disease, Onset Age: 69 Social History Social History Social History: The patient lives in [place] with her and daughter. Retired from working in a school cafeteria. Lifelong nonsmoker. Drinks perhaps 2 alcoholic beverages a week. No illicit substance use. She designates her son, Allan Wilson, and daughter Marleny as her surrogate decision maker. Code status: Full code. Smoking status: Never smoker Second hand tobacco smoke exposure: No Additional smoking assessment comments: PT DENIES ALL FORMS OF TOBBACO USE Alcohol intake: never Drinks per week: 2 Alcohol use details: 2-3/MONTH Substance use: current Substance use type: marijuana Other substance usage details: STATES COUPLE BITE SIZE BROWNIES 1-2 TIMES A WEEK Last use: 08/23/21 Lack of Transportation: No Lack of Food: Never True Current Housing: I Have Housing Concerned About Future Housing: No Difficulty Paying Gas/Electric Bills: No Difficulty Paying for Meds: No Currently Unemployed: No Education: High School Diploma/GED Difficulty w/ Childcare or Family Care: No Living arrangements: with family Occupation/Education: retired Gender identity (if verbalized by the patient): Female Sexual Orientation (if Verbalized by the Patient): Straight or Heterosexual Spiritual care concerns: No Agree to blood products: Yes Meds Home Medications and Allergies Home Medications Medication Instructions Recorded Confirmed Type atorvastatin 20 mg tablet 20 mg PO QAM #90 tabs 09/06/22 02/10/23 Rx amlodipine 5 mg tablet 5 mg PO QAM #90 tabs 09/23/22 02/10/23 Rx losartan 100 mg tablet See Rx Instructions .Route 01/20/23 02/10/23 Rx .COMPLEX #90 tabs Allergies Allergy/AdvReac Type Severity Reaction Status Date / Time adhesive Allergy Unknown SKIN Verified 02/10/23 00:06 IRRITATION latex Allergy Unknown Skin Verified 02/10/23 00:06 Reaction sertraline AdvReac Confusion Verified 02/10/23 00:06 Vital Signs Vital Signs - 24 hr 02/09/23 18:24 02/10/23 00:41 02/10/23 03:50 Temperature 99.0 F Pulse Rate 76 73 71 Respiratory Rate 20 17 15 Blood Pressure 142/67 H 150/80 H 131/84 Pulse Oximetry 98 96 95 Oxygen Delivery Room Air 02/10/23 07:01 02/10/23 07:10 02/10/23 07:34 Temperature Pulse Rate 74 72 61 Respiratory Rate 14 13 12 Blood Pressure 125/94 H 125/
[2023-02-10] MEDS: HEPARIN SODIUM 5,000 UNITS/ML VIAL 5000 UNITS SUB-Q ×2 (14:21→21:16)
--- NOTE | 2023-02-10 15:56 | PM.CNPUL ---
Assessment and Plan Assessment and plan (1) Multiple rib fractures involving four or more ribs: Code(s): S22.49XA - Multiple fractures of ribs, unspecified side, initial encounter for closed fracture Status: Acute Assessment and Plan: Feb 09 she fell, landed on right side of chest fracturing ribs 8,9,10 and 11 with minimal displacement. this is a total of 4 ribs all on the same side. Breaking more than 3 ribs is a risk for delayed complications including pneumonia, delayed pneumothorax, blood vessel injury. She has adequate pain control using oral oxycodone/acetaminophen 5 mg-325 mg Q 4 hours, lidocaine patch, and regular Tylenol. She is using an incentive spirometer to reduce atelectasis. Will add Cornet valve to assist with clearance of any secretions, and add bronchodilator if wheezing develops. She has no smoking history, just recovered from 6 weeks of coughing following a viral infection shared by the household. Room air saturation is 96%, is able to use incentive spirometer with 1732-4637 ml performed, excellent. Plan Continue pulmonary hygiene, pain control, watch saturation. If she does not develop complications including hypoxemia, worsening pain, or pneumothorax, she may be ready to go home in a day. History of Present Illness History of Present Illness Consult date: 02/10/23 Requesting physician: Dona Khan MD Chief complaint: rib fractures Narrative: pt seen Feb 10 at 18:15 Norm was present during my visit. NEW: Noni Wilson is a 77-year-old female with HTN, hyperlipidemia, cardiac ablation 3 years ago for atrial flutter, bilateral hip arthroplasty. Last night Feb 09 she he was taking clothes out of the dryer, slipped on a small rug, falling onto the side of the bathtub hitting her right ribs. She did not hit anything else, no head injury. She was in extreme pain, could not get into the car. They called 911, came to ER; chest CXR and CT showed fractures of ribs 8, 9, 10, and 11 on the right side. She is making sure to request pain medications every 4 hours to stay ahead of the pain. She is using an incentive spirometer with discomfort. She as a small amount of atelectasis in the lung bases. There is no history of asthma, COPD, smoking, chronic lung disease, sinus infections, or occupational exposure. The whole family had a cough that last about 6 weeks. She recovered a week ago. She has no sputum production, no wheezing. Social: Never smoked. 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 Their 13 year-old granddaughter is their adopted child, lives with them. DATA * 02/10/23 [id number] CT : There are minimally displaced acute fractures of the right eighth, ninth, 10th, 11th ribs. Mild bibasilar atelectatic change. Cholelithiasis. 3 mm nonobstructing right renal stone. * white blood cell count 8.9, hemoglobin 14.2, hematocrit 42.8% Review of Systems Review of Systems: All systems reviewed & are unremarkable except as noted in HPI and below (no exertional chest pain, leg swelling, ) PMFSH Past Medical History Medical History Essential (primary) hypertension Generalized anxiety disorder Generalized osteoarthritis Hyperlipidemia Major depressive disorder, recurrent episode, mild with anxious distress Surgical History Surgical History History of appendectomy History of cardiac radiofrequency ablation (08/2020) For SVT per Dr. Leach at [facility]. History of cataract extraction History of right hip replacement History of total left hip arthroplasty (~09/14/21) History of tubal ligation Family History Family History Sibling Depression Family history of cardiovascular disease Father Family history of glaucoma, Onset Age: 91 Mother Family history of alcoholism, Onset Age: 69 Family
[2023-02-11] MEDS: oxyCODONE/ACETAMINOPHEN (*CRX) 5-325 MG TABLET 1 TABLET PO ×2 (04:53→09:09)
[2023-02-11 06:00] VITALS: BP 122/65; PULSE 63; RESP 16; TEMP 36.4; O2SAT 93
[2023-02-11 06:34] LABS: Basophils Percent Auto 0.7 % (0.2-1.2); Eosinophils Absolute Auto 0.2 K/mm3 (0-0.3); Eosinophils Percent Auto 3.6 % (0-4.4); Hematocrit 43.4 % (37.0-47.0); Hemoglobin 13.8 g/dL (12.0-15.0); Immature Granulocyte Absolute 0.01 K/mm3 (0.00-0.031); Immature Granulocyte Percent A 0.2 % (0-0.5); Lymphocytes Absolute Auto 1.93 K/mm3 (0.9-3.2); Lymphocytes Percent Auto 34.8 % (18.3-44.2); Mean Corpuscular HGB Conc 31.8 g/dl (32-36); Mean Corpuscular Hemoglobin 29.7 pg (26-34); Mean Corpuscular Volume 93.3 fl (80-100); Mean Platelet Volume 9.9 fl (7.4-10.4); Monocytes Absolute Auto 0.6 K/mm3 (0.1-0.6); Monocytes Percent Auto 10.1 % (2.6-8.5); Neutrophils Absolute Auto 2.8 K/mm3 (1.3-6.7); Neutrophils Percent Auto 50.6 % (45.5-73.1); Platelet Count Result 235 k/mm3 (150-375); Red Blood Count 4.65 M/mm3 (4.2-5.4); Red Cell Distribution Width 12.8 % (11.5-14.5); White Blood Count 5.6 K/mm3 (4.5-10.0)
[2023-02-11 06:35] LABS: Anion Gap 5 mmol/L (8-16); Blood Urea Nitrogen 18 mg/dL (7-17); Calcium 9.3 mg/dL (8.4-10.2); Carbon Dioxide 28 mmol/L (22-30); Chloride 104 mmol/L (98-107); Estimated CRCL calculation 48 ml/min; Estimated Glomerular Filt Rate > 60; Glucose 91 mg/dL (65-110); Potassium 4.8 mmol/L (3.4-5.0); Sodium 137 mmol/L (137-145)
[2023-02-11] MEDS: HEPARIN SODIUM 5,000 UNITS/ML VIAL 5000 UNITS SUB-Q ×3 (06:50→21:19)
[2023-02-11] MEDS: amLODIPine BESYLATE 5 MG TABLET PO (09:05)
[2023-02-11] MEDS: LOSARTAN POTASSIUM 100 MG TABLET BY MOUTH (09:05)
[2023-02-11] MEDS: LIDOCAINE 5% PATCH 1 PATCH TRANSDERM (09:05)
[2023-02-11] MEDS: ATORVASTATIN 20 MG TABLET PO (09:05)
--- NOTE | 2023-02-11 10:50 | PM.IMPN ---
Progress Note: A&P Assessment and Plan (1) Multiple rib fractures involving four or more ribs: Code(s): S22.49XA - Multiple fractures of ribs, unspecified side, initial encounter for closed fracture Status: Acute (2) Rib fracture: Code(s): S22.39XA - Fracture of one rib, unspecified side, initial encounter for closed fracture Status: Acute (3) Fall: Code(s): W19.XXXA - Unspecified fall, initial encounter Status: Acute Plan 77-year-old female with past medical history of osteoarthritis, generalized anxiety disorder presented to the ER after a fall.? CT chest shows?Acute fractures of the right eighth, ninth, 10th, 11th ribs. 1. Fall+ multiple right-sided rib fractures: Pain is not very well controlled Increase the dose of Percocet to 10-325 q.4 hours p.r.n. Add ibuprofen for maximum of 5 doses Incentive spirometer Pulmonary consult appreciated 2. Hypertension: Continue with losartan, Norvasc at home dose 3. Hyperlipidemia: Continue with home dose of Lipitor 4. DVT prophylaxis: Heparin subQ 5.code status:? Full 6. Disposition: Anticipate discharge tomorrow morning if pain is better controlled Time Spent With Patient Time with patient: 15 - 25 minutes Subjective Date/time seen: 02/11/23 10:50 Interval history: Pain is not very well controlled Review of Systems Review of Systems: All systems reviewed & are unremarkable except as noted in HPI and below Exam Narrative: GEN: Alert, oriented, not in distress. She is a good historian. HEENT: pupils are equal, EOMI, symmetrical face; oral membranes moist. Per her warehouseman, she has 2 small adhesive patches on right side of her face treating skin cancer. NECK: Trachea is midline CHEST: Equal air entry, symmetric excursion, clear breath sounds. She has a pain patch on the right posterior chest over one of the fractured ribs. Significant point tenderness over 9the posterior rib. CV: Regular S1S2 no m/g/r ABD : (+) bowel sounds Extremities : no clubbing, cyanosis, or edema PSYCH: normal thought and speech. Objective Data Vital Signs Vital Signs: Vital Signs - 24 hr 02/10/23 14:00 02/10/23 18:20 02/10/23 21:51 Temperature 98.1 F 97.4 F L Pulse Rate 75 65 Respiratory Rate 14 14 Blood Pressure 112/61 124/57 L Pulse Oximetry 96 96 100 Oxygen Delivery Room Air 02/11/23 06:00 02/11/23 08:01 Temperature 97.5 F L Pulse Rate 63 Respiratory Rate 16 Blood Pressure 122/65 Pulse Oximetry 93 Oxygen Delivery Room Air Intake/Output Intake/Output: Intake & Output 02/08/23 02/09/23 02/10/23 02/11/23 23:59 23:59 23:59 23:59 Intake Total 2270 340 Balance 2270 340 Meds/Results Medications: Active Medications Generic Name Dose Route Start Last Admin Trade Name Freq PRN Reason Stop Dose Admin Acetaminophen 650 mg 02/10/23 07:43 Acetaminophen 325 Mg Tablet PO Q4H PRN Mild Pain (1-3) or Fever Amlodipine Besylate 5 mg 02/10/23 09:00 02/11/23 09:05 Amlodipine Besylate 5 Mg Tablet PO 5 mg QAM SHAKEEL Administration Atorvastatin Calcium 20 mg 02/10/23 09:00 02/11/23 09:05 Atorvastatin 20 Mg Tablet PO 20 mg QAM SHAKEEL Administration Heparin Sodium (Porcine) 5,000 units 02/10/23 14:00 02/11/23 06:50 Heparin Sodium 5,000 Units/Ml Vial SUB-Q 5,000 units Q8HR SHAKEEL Administration Lidocaine 1 patch 02/10/23 09:00 02/11/23 09:05 Lidocaine 5% Patch TRANSDERM 1 patch DAILY SHAKEEL Administration Losartan Potassium 100 mg 02/10/23 09:00 02/11/23 09:05 Losartan Potassium 100 Mg Tablet BY MOUTH 100 mg DAILY SHAKEEL Administration Morphine Sulfate 1 mg 02/11/23 10:34 Morphine Sulfate (*Crx) 2 Mg/Ml Inj IV PUSH Q3H PRN breakthrough Ondansetron HCl 4 mg 02/10/23 07:45 Ondansetron Inj 4 Mg/2 Ml Vial IV PUSH Q4H PRN Nausea And Vomiting Oxycodone/Acetaminophen 1 tablet 02/10/23 07:43 02/11/23 09:09
[2023-02-11] MEDS: IBUPROFEN 600 MG TABLET PO ×2 (13:10→21:18)
[2023-02-11] MEDS: oxyCODONE/ACETAMINOPHEN (*CRX) 10-325 MG TABLET 1 TAB PO ×2 (13:12→17:39)
[2023-02-11 15:08] VITALS: BP 114/58; PULSE 78; RESP 18; TEMP 36.6; O2SAT 95
--- NOTE | 2023-02-11 16:19 | PM.PNPUL ---
Progress Note: A&P Assessment and Plan (1) Multiple rib fractures involving four or more ribs: Code(s): S22.49XA - Multiple fractures of ribs, unspecified side, initial encounter for closed fracture Status: Acute Assessment and Plan: Feb 09 she fell, landed on right side of chest fracturing ribs 8,9,10 and 11 with minimal displacement. this is a total of 4 ribs all on the same side. Breaking more than 3 ribs is a risk for delayed complications including pneumonia, delayed pneumothorax, blood vessel injury. She has adequate pain control using oral oxycodone/acetaminophen 5 mg-325 mg Q 4 hours, lidocaine patch, and regular Tylenol. She is using an incentive spirometer to reduce atelectasis. Will add Cornet valve to assist with clearance of any secretions, and add bronchodilator if wheezing develops. She has no smoking history, just recovered from 6 weeks of coughing following a viral infection shared by the household. Room air saturation is 96%, is able to use incentive spirometer with 5499-5938 ml performed, excellent. Continue pulmonary hygiene, pain control, watch saturation. She remains here to control pain with oral meds. This moring she was in severe pain, this evening, better. I ordered a brace for her ribs, if this is something that we have in supplies. She knows she needs to continue IS and using Cornet valve. Subjective Date/time seen: 02/11/23 17:40 She is feeling better, francis when she takes pain meds regularly scheduled. This morning was difficult as far as pain, now better. She is sitting up in a chair eating dinner., breathing room air, hoping to go home tomorrow. She is able to use the COrnet valve, turned up to highest setting. I ordered a brace for her to use around her ribs, if one is available from supplies. This is not recommended in general because some people might not use IS however she is using it regaularly, getting close to 2000 ml. SHE does not want to get pneumonia. Interval history: Feb 09: new consult: Noni Wilson is a 77-year-old female with HTN, hyperlipidemia, cardiac ablation 3 years ago for atrial flutter, bilateral hip arthroplasty. ? Last night Feb 09 she he was taking clothes out of the dryer, slipped on a small rug, falling onto the side of the bathtub hitting her right ribs. She did not hit anything else, no head injury. She was in extreme pain, could not get into the car. They called 911, came to ER; chest CXR and CT showed fractures of ribs 8, 9, 10, and 11 on the right side. She is making sure to request pain medications every 4 hours to stay ahead of the pain. She is using an incentive spirometer with discomfort. She has a small amount of atelectasis in the lung bases. There is no history of asthma, COPD, smoking, chronic lung disease, sinus infections, or occupational exposure.? The whole family had a cough that last about 6 weeks. She recovered a week ago. She has no sputum production, no wheezing.? Social: Never smoked. 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 Their 13 year-old granddaughter is their adopted child, lives with them.? DATA * 02/10/23 [id number] CT :?There are minimally displaced acute fractures of the right eighth, ninth, 10th, 11th ribs. Mild bibasilar atelectatic change. Cholelithiasis. 3 mm nonobstructing right renal stone. * ? white blood cell count 8.9, hemoglobin 14.2, hematocrit 42.8% Review of Systems Review of Systems: All systems reviewed & are unremarkable except as noted in HPI and below Exam Narrative: GEN: Alert, oriented, not in distress. She is a good historian. HEENT: pupils are equal, EOMI, symmetrical face; oral membranes moist. NECK: Trachea is midline CHEST: Equal air entry, symmetric excursion, clear breath sounds. Significant point tenderness over 9th posterior rib. Seh has some crackles in both lung bases. These are new. CV: Regular S1S2 no m/g/r ABD : (+) bowel sounds Extremities : no clubbing, cyanosis, or edema PSYC
[2023-02-11 20:00] VITALS: O2SAT 94
[2023-02-11 22:00] VITALS: BP 116/61; PULSE 73; RESP 18; TEMP 36.7; O2SAT 94
[2023-02-12] MEDS: IBUPROFEN 600 MG TABLET PO (04:00)
[2023-02-12] MEDS: HEPARIN SODIUM 5,000 UNITS/ML VIAL 5000 UNITS SUB-Q (05:00)
[2023-02-12 06:00] VITALS: BP 113/63; PULSE 70; RESP 18; TEMP 36.6; O2SAT 95
[2023-02-12 07:34] LABS: Basophils Absolute Auto 0.1 K/mm3 (0.0-0.1); Basophils Percent Auto 0.9 % (0.2-1.2); Eosinophils Absolute Auto 0.3 K/mm3 (0-0.3); Eosinophils Percent Auto 4.8 % (0-4.4); Hematocrit 39.6 % (37.0-47.0); Hemoglobin 12.9 g/dL (12.0-15.0); Immature Granulocyte Absolute 0.01 K/mm3 (0.00-0.031); Immature Granulocyte Percent A 0.2 % (0-0.5); Lymphocytes Absolute Auto 1.67 K/mm3 (0.9-3.2); Lymphocytes Percent Auto 30.8 % (18.3-44.2); Mean Corpuscular HGB Conc 32.6 g/dl (32-36); Mean Corpuscular Hemoglobin 30.2 pg (26-34); Mean Corpuscular Volume 92.7 fl (80-100); Mean Platelet Volume 9.9 fl (7.4-10.4); Monocytes Absolute Auto 0.6 K/mm3 (0.1-0.6); Monocytes Percent Auto 10.1 % (2.6-8.5); Neutrophils Absolute Auto 2.9 K/mm3 (1.3-6.7); Neutrophils Percent Auto 53.2 % (45.5-73.1); Platelet Count Result 225 k/mm3 (150-375); Red Blood Count 4.27 M/mm3 (4.2-5.4); Red Cell Distribution Width 12.6 % (11.5-14.5); White Blood Count 5.4 K/mm3 (4.5-10.0)
[2023-02-12 07:43] LABS: Anion Gap 6 mmol/L (8-16); Blood Urea Nitrogen 16 mg/dL (7-17); Calcium 8.9 mg/dL (8.4-10.2); Carbon Dioxide 25 mmol/L (22-30); Chloride 106 mmol/L (98-107); Estimated CRCL calculation 55 ml/min; Estimated Glomerular Filt Rate > 60; Glucose 77 mg/dL (65-110); Potassium 4.4 mmol/L (3.4-5.0); Sodium 137 mmol/L (137-145)
[2023-02-12] MEDS: LOSARTAN POTASSIUM 100 MG TABLET BY MOUTH (08:59)
[2023-02-12] MEDS: amLODIPine BESYLATE 5 MG TABLET PO (08:59)
[2023-02-12] MEDS: oxyCODONE/ACETAMINOPHEN (*CRX) 10-325 MG TABLET 1 TAB PO (08:59)
[2023-02-12] MEDS: ATORVASTATIN 20 MG TABLET PO (08:59)
--- NOTE | 2023-02-12 10:20 | PM.DS ---
DS: Admitting Diagnosis Discharge Date 02/13/2024 Admitting Diagnosis Rib fractures DS: Discharge Diagnosis Discharge Diagnosis (1) Multiple rib fractures involving four or more ribs: Code(s): S22.49XA - Multiple fractures of ribs, unspecified side, initial encounter for closed fracture Status: Acute Assessment and Plan: Right 8-11 (2) Rib fracture: Code(s): S22.39XA - Fracture of one rib, unspecified side, initial encounter for closed fracture Status: Acute (3) Fall: Code(s): W19.XXXA - Unspecified fall, initial encounter Status: Acute DS: Summary Hospital Course Reason for hospitalization: Right-sided pain after fall Hospital Course: 77-year-old female was doing laundry and turn stepped on a rug which went out from under her she fell and her right chest wall hit the bathtub. She was unable to arise under her own power. EMS was summoned and she was taken to the emergency department where CT scanning revealed fractures of right ribs 8 through 11. She was admitted for analgesia. Coronary at therapy and incentive spirometry were initiated. A rib brace of elastic material was applied. Pain control was adequate. She was ambulating to and from the bathroom and tolerating her diet. She had no other chest pain no shortness of breath. No GI or disturbance. There was no head trauma or loss of consciousness. She was to be discharged on February 12. Her fall occurred on February 09. Time Spent with Patient Time attestation: Total time spent providing and/or coordinating discharge services: Exam Narrative: GEN: Alert, oriented, not in distress. She is a good historian. HEENT: pupils are equal, EOMI, symmetrical face; oral membranes moist. Per her driver merchandiser, she has 2 small adhesive patches on right side of her face treating skin cancer. NECK: Trachea is midline CHEST: Equal air entry, symmetric excursion, clear breath sounds. She has a pain patch on the right posterior chest over one of the fractured ribs. Significant point tenderness over 9the posterior rib. CV: Regular S1S2 no m/g/r ABD : (+) bowel sounds Extremities : no clubbing, cyanosis, or edema PSYCH: normal thought and speech. DS: Data Data Completed and Pending Labs on day of discharge: Labs from last 24 hours 02/12/23 06:06 WBC 5.4 RBC 4.27 Hgb 12.9 Hct 39.6 MCV 92.7 MCH 30.2 MCHC 32.6 RDW 12.6 Plt Count 225 MPV 9.9 Immature Gran % (Auto) 0.2 Neut % (Auto) 53.2 Lymph % (Auto) 30.8 [place] % (Auto) 10.1 H Eos % (Auto) 4.8 H Baso % (Auto) 0.9 Lymph # (Auto) 1.67 [place] # (Auto) 0.6 Eos # (Auto) 0.3 Baso # (Auto) 0.1 Abs Immat Gran (auto) 0.01 Absolute Neuts (auto) 2.9 Absolute Nucleated RBC 0.0 Nucleated RBC % 0.0 Sodium 137 Potassium 4.4 Chloride 106 Carbon Dioxide 25 Anion Gap 6 L BUN 16 Creatinine 0.60 L Estim Creat Clear Calc 55 Estimated GFR > 60 Glucose 77 Calcium 8.9 Discharge Plan Discharge Consulting providers: Alice Torres Discharging Clinician: Karl Berkowitz Patient Disposition: Home, Self-Care Activity: no straining and no driving Diet: heart healthy Discharge Instructions: Fall precautions: Avoid rugs, walking in socks, uneven surfaces, ladders, stairs without handrails, and any other situation that does not feel safe. Stand Alone Forms: General Discharge Information Follow-up/Referrals: Bernadine Hall DO [Primary Care Provider] - 1 Week Discharge Medications: New oxycodone-acetaminophen 10-325 mg Tablet 1 tablet PO Q6H PRN (Reason: Pain Rated 7-10) Qty: 10 0RF ibuprofen 600 mg Tablet 600 mg PO Q6H PRN (Reason: Pain Rated 4-6) Qty: 30 0RF Continued atorvastatin 20 mg tablet 20 mg PO QAM Qty: 90 1RF Rx Instructions: TAKE 1 TABLET BY MOUTH EVERY DAY losartan 100 mg tablet See Rx Instructions .ROUTE .COMPLEX Qty: 90 1RF Dose Instruction: TAKE 1 TABLET
== END 2023-02-12 11:38 | disposition home or self-care (01) ==
LOC: ANHED 02-10 02:27 → ANH3MEDSUR 02-11 12:21
PROVIDERS: Internal Medicine; Admitting Provider Internal Medicine; Emergency Provider Emergency Medicine; PCP Family Medicine; Visit Provider Internal Medicine
DX: S22.41XA Multiple fractures of ribs, right side, initial encounter for closed fracture (principal); Y93.E2 Activity, laundry; Y92.002 Bathroom of unspecified non-institutional (private) residence as the place of occurrence of the external cause; W01.198A Fall on same level from slipping, tripping and stumbling with subsequent striking against other object, initial encounter; E78.5 Hyperlipidemia, unspecified; I10 Essential (primary) hypertension; F41.1 Generalized anxiety disorder; F32.9 Major depressive disorder, single episode, unspecified; F10.90 Alcohol use, unspecified, uncomplicated; F12.90 Cannabis use, unspecified, uncomplicated
CPT/HCPCS: 36415; 71046; 71260; 74177; 80048; 80053; 85025; 94667; 96361; 96372; 96374; 96375; 96376; 97161; 97165; 97530; 97535; 99285; A9270; G0378; J1170; J1644; J1885; J2405; J7030; Q9967

== ENCOUNTER → 2023-03-08 10:36 | Outpatient (CLI) | payer MEDICARE, SELFPAY ==
--- NOTE | ~2023-03-08 | XR_ITS ---
Clinical Indication: Rib fracture PA and lateral views of the chest: Comparison: 02/09/2023 Findings: The lungs are clear, without evidence of focal consolidation or pleural effusion. Cardiome diastinal silhouette is within normal limits. Bones and soft tissues are unremarkable. Impression: Normal chest. Rib fractures seen on recent CT scan are poorly delineated radiographically. Reviewed, dictated and finalized at [facility]. ENSATION SPECIALIST Impression: Normal chest. Rib fractures seen on recent CT scan are poorly delineated radiographically.
== END ==
PROVIDERS: PCP Nurse Practitioner; Visit Provider Nurse Practitioner
DX: S22.49XD Multiple fractures of ribs, unspecified side, subsequent encounter for fracture with routine healing (principal); X58.XXXD Exposure to other specified factors, subsequent encounter
CPT/HCPCS: 71046

== ENCOUNTER 2023-03-14 08:10 | Outpatient (CLI) | payer MEDICARE, SELFPAY ==
--- NOTE | ~2023-03-14 | CT_ITS ---
CT Scan of the Chest without Contrast: Clinical Indication: Rib fractures Technique: Contiguous sections were acquired throughout the chest without intravenous contrast. Dose reduction technique was used on this scan by utilizing automated exposure control and iterative recon struction technique. The dose-length product (DLP) was 124.88 mGy-cm. COMPARISON: 02/10/2023 Findings: There is no evidence of any significant mediastinal, hilar or axillary lymphadenopathy. The mediastin al soft tissues appear normal. No pericardial effusion. Minimal right pleural effusion present. No left pleural effusion.. The lungs are clear. No pulmonary nodules or infiltrates are noted. Images through the upper abdomen reveal no abnormalities. There are fractures of the right eighth, ni nth, 10th, 11th ribs. The ninth and 10th ribs are fractured in 2 separate locations. Noted also proba ble nondisplaced fracture of the right T9 transverse process, slightly more conspicuous than on prior exam, but otherwise unchanged. Impression: Multiple fractures involving the right eighth, ninth, 10th, and 11th ribs, similar to prior exam. Stable probable nondisplaced fracture the right T9 transverse process. Minimal right pleural effusion. Reviewed, dictated and finalized at location M. MIC PLATER Impression: Multiple fractures involving the right eighth, ninth, 10th, and 11th ribs, derian lar to prior exam. Stable probable nondisplaced fracture the right T9 transverse process. Minimal right pleural effusion.
== END 2023-03-14 08:11 | disposition home or self-care (01) ==
PROVIDERS: PCP Family Medicine; Visit Provider Nurse Practitioner
DX: S22.41XD Multiple fractures of ribs, right side, subsequent encounter for fracture with routine healing (principal); X58.XXXD Exposure to other specified factors, subsequent encounter
CPT/HCPCS: 71250

== ENCOUNTER 2023-04-14 12:49 | Outpatient (CLI) | payer MEDICARE, SELFPAY ==
--- NOTE | ~2023-04-14 | US_ITS ---
EXAMINATION: US venous doppler [facility] DATE: 04/14/2023 13:46 INDICATION: New onset lower limb swelling TECHNIQUE: Nolasco scale images without and with compression and Doppler images of the bilateral lower e xtremity veins were obtained. COMPARISON: None FINDINGS: The right common femoral vein, profunda femoral vein, femoral vein, popliteal vein, peroneal trunk, p osterior tibial veins, and greater saphenous vein are patent. The left common femoral vein, profunda femoral vein, femoral vein, popliteal vein, peroneal trunk, po sterior tibial veins, and greater saphenous vein are patent. IMPRESSION: 1. Patent bilateral lower extremity veins. No evidence of deep venous thrombosis. Reviewed, dictated and finalized at location L. ESS IMPROVEMENT ANALYST IMPRESSION: 1. Patent bilateral lower extremity veins. No evidence of deep venous thrombosi s.
== END 2023-04-14 12:50 | disposition home or self-care (01) ==
LOC: ANHIMG 12:51
PROVIDERS: PCP Family Medicine; Visit Provider Family Medicine
DX: R60.9 Edema, unspecified (principal); M25.471 Effusion, right ankle; M25.472 Effusion, left ankle; M25.474 Effusion, right foot; M25.475 Effusion, left foot
CPT/HCPCS: 93970

== ENCOUNTER 2023-05-10 10:06 | Outpatient (CLI) | payer MEDICARE, SELFPAY ==
[2023-05-10 13:18] LABS: Anion Gap 5 mmol/L (8-16); Blood Urea Nitrogen 24 mg/dL (7-17); Calcium 9.6 mg/dL (8.4-10.2); Carbon Dioxide 34 mmol/L (22-30); Chloride 98 mmol/L (98-107); Estimated Glomerular Filt Rate > 60; Glucose 95 mg/dL (65-110); Potassium 3.3 mmol/L (3.4-5.0); Sodium 137 mmol/L (137-145)
== END 2023-05-10 10:07 | disposition home or self-care (01) ==
LOC: ANHGOSHLAB 10:08
PROVIDERS: PCP Family Medicine
DX: M79.89 Other specified soft tissue disorders (principal)
CPT/HCPCS: 36415; 80048

== ENCOUNTER 2023-07-09 08:45 | Emergency (ER) | payer MEDICARE, SELFPAY ==
--- NOTE | 2023-07-09 08:55 | ED.SKABFB ---
HPI - Skin/Abscess/Foreign Bdy General Chief complaint: Skin/Abscess/Foreign Body Stated complaint: FACIAL SWELLING Time Seen by Provider: 07/09/23 08:55 Source: patient and RN notes reviewed Mode of arrival: ambulatory Limitations: no limitations History of Present Illness HPI narrative: 77-year-old female presents with concern for a rash on her right cheek. Reports she noticed a red bump under her right eye 8 days ago. Reports it has become swollen and tender. Denies fever, body aches, chills, sweats, vision changes. MD complaint: rash Related Data Home Medications Medication Instructions Recorded Confirmed potassium chloride 20 mEq 20 meq PO DAILY 05/19/23 07/09/23 tablet,extended release(part/cryst) (Klor-Con M) furosemide 20 mg tablet 20 mg PO DAILY 07/09/23 07/09/23 Allergies Allergy/AdvReac Type Severity Reaction Status Date / Time adhesive Allergy Unknown SKIN Verified 07/09/23 08:52 IRRITATION latex Allergy Unknown Skin Verified 07/09/23 08:52 Reaction sertraline AdvReac Confusion Verified 07/09/23 08:52 Review of Systems Review of Systems: CONSTITUTIONAL: Denies malaise, chills, sweats, or fever. EYES: Denies redness, or discharge. ENT: Denies rhinorrhea, congestion, swollen lips, swollen tongue CARDIOVASCULAR: Denies chest pain, palpitations, or edema. RESPIRATORY: Denies cough or dyspnea. GASTROINTESTINAL: Denies abdominal pain, nausea, vomiting SKIN: Reports redness, swelling, tenderness under the right eye MUSCULOSKELETAL: Denies joint pain or myalgia. NEUROLOGIC: Denies headache. All systems reviewed & are unremarkable except as noted in HPI and below PMFSH Past Medical History Medical History Essential (primary) hypertension Generalized anxiety disorder Generalized osteoarthritis Hyperlipidemia Major depressive disorder, recurrent episode, mild with anxious distress Surgical History Surgical History History of appendectomy History of cardiac radiofrequency ablation (08/2020) For SVT per Dr. Leach at [facility]. History of cataract extraction History of right hip replacement History of total left hip arthroplasty (~09/14/21) History of tubal ligation Family History Family History Sibling Depression Family history of cardiovascular disease Father Family history of glaucoma, Onset Age: 91 Mother Family history of alcoholism, Onset Age: 69 Family history of liver disease, Onset Age: 69 Social History Social History Social History: The patient lives in [place] with her and daughter. Retired from working in a school cafeteria. Lifelong nonsmoker. Drinks perhaps 2 alcoholic beverages a week. No illicit substance use. She designates her son, Allan Wilson, and daughter Marleny as her surrogate decision maker. Code status: Full code. Smoking status: Never smoker Second hand tobacco smoke exposure: No Additional smoking assessment comments: PT DENIES ALL FORMS OF TOBBACO USE Alcohol intake: never Drinks per week: 2 Alcohol use details: 2-3/MONTH Substance use: current Substance use type: marijuana Other substance usage details: STATES COUPLE BITE SIZE BROWNIES 1-2 TIMES A WEEK Last use: 08/23/21 Do You Feel Safe in your Home?: Yes Lack of Transportation: No Lack of Food: Never True Current Housing: I Have Housing Concerned About Future Housing: No Difficulty Paying Gas/Electric Bills: No Difficulty Paying for Meds: No Currently Unemployed: No Education: High School Diploma/GED Difficulty w/ Childcare or Family Care: No Living arrangements: with family Occupation/Education: retired Gender identity (if verbalized by the patient): Female Sexual Orientation (if Ve
[2023-07-09 08:56] VITALS: BP 126/69; PULSE 80; RESP 16; TEMP 36.1; O2SAT 97
== END 2023-07-09 09:09 | disposition home or self-care (01) ==
PROVIDERS: Emergency Provider Nurse Practitioner; PCP Family Medicine
DX: L01.00 Impetigo, unspecified (principal); I10 Essential (primary) hypertension; E78.5 Hyperlipidemia, unspecified; M15.9 Polyosteoarthritis, unspecified; Z96.641 Presence of right artificial hip joint
CPT/HCPCS: 99213; G0463

== ENCOUNTER 2023-09-27 09:02 | Outpatient (CLI) | payer MEDICARE, SELFPAY ==
[2023-09-27 15:50] LABS: Hematocrit 43.6 % (37.0-47.0); Hemoglobin 14.3 g/dL (12.0-15.0); Mean Corpuscular HGB Conc 32.8 g/dl (32-36); Mean Corpuscular Volume 91.6 fl (80-100); Mean Platelet Volume 10.1 fl (7.4-10.4); Platelet Count Result 282 k/mm3 (150-375); Red Blood Count 4.76 M/mm3 (4.2-5.4); Red Cell Distribution Width 12.6 % (11.5-14.5); White Blood Count 6.6 K/mm3 (4.5-10.0)
[2023-09-27 16:16] LABS: Alanine Aminotransferase 13 U/L (6-35); Albumin Level 4.3 g/dL (3.5-5.1); Alkaline Phosphatase 86 U/L (38-126); Anion Gap 7 mmol/L (4-12); Aspartate Amino Transferase 33 U/L (14-36); Bilirubin,Total 0.5 mg/dL (0.2-1.3); Blood Urea Nitrogen 23 mg/dL (7-17); Calcium 9.6 mg/dL (8.4-10.2); Carbon Dioxide 32 mmol/L (22-30); Chloride 99 mmol/L (98-107); Cholesterol 170 mg/dL (0-200); Estimated Glomerular Filt Rate > 60; Glucose 93 mg/dL (65-110); HDL Direct 60 mg/dL; Potassium 4.4 mmol/L (3.4-5.0); Sodium 138 mmol/L (137-145); Triglycerides 73 mg/dL (<150)
[2023-09-27 16:27] LABS: LDL Cholesterol Direct 79 mg/dL
[2023-09-27 16:47] LABS: Thyroid Stimulating Hormone 0.481 uIU/mL (0.465-4.680)
== END 2023-09-27 09:03 | disposition home or self-care (01) ==
PROVIDERS: PCP Family Medicine; Visit Provider Family Medicine
DX: F41.1 Generalized anxiety disorder (principal); I10 Essential (primary) hypertension; E78.5 Hyperlipidemia, unspecified; Z79.899 Other long term (current) drug therapy
CPT/HCPCS: 36415; 80053; 80061; 84443; 85027

== ENCOUNTER 2023-12-13 13:03 | Outpatient (CLI) | payer MEDICARE, SELFPAY ==
[2023-12-13 14:38] LABS: Alanine Aminotransferase 14 U/L (6-35); Albumin Level 4.1 g/dL (3.5-5.1); Alkaline Phosphatase 72 U/L (38-126); Anion Gap 7 mmol/L (4-12); Aspartate Amino Transferase 39 U/L (14-36); Bilirubin,Total 0.4 mg/dL (0.2-1.3); Blood Urea Nitrogen 27 mg/dL (7-17); Calcium 9.4 mg/dL (8.4-10.2); Carbon Dioxide 30 mmol/L (22-30); Chloride 101 mmol/L (98-107); Cholesterol 161 mg/dL (0-200); Estimated Glomerular Filt Rate > 60; Glucose 137 mg/dL (65-110); HDL Direct 67 mg/dL; Potassium 4.4 mmol/L (3.4-5.0); Sodium 138 mmol/L (137-145); Triglycerides 119 mg/dL (<150)
[2023-12-13 14:50] LABS: LDL Cholesterol Direct 60 mg/dL
[2023-12-13 15:08] LABS: Thyroid Stimulating Hormone 0.442 uIU/mL (0.465-4.680)
[2023-12-13 18:31] LABS: Hemoglobin A1C 5.3 % (<5.7)
[2023-12-13 20:21] LABS: Vitamin D 25 Hydroxy 23.7 ng/mL
== END 2023-12-13 13:04 | disposition home or self-care (01) ==
PROVIDERS: PCP Family Medicine; Visit Provider Nurse Practitioner
DX: F33.0 Major depressive disorder, recurrent, mild (principal); E55.9 Vitamin D deficiency, unspecified; R73.09 Other abnormal glucose; E78.2 Mixed hyperlipidemia
CPT/HCPCS: 36415; 80053; 80061; 82306; 83036; 84443

== ENCOUNTER 2024-06-04 08:28 | Outpatient (CLI) | payer MEDICARE, SELFPAY ==
--- OUTSIDE RECORDS SUMMARY | 2024-06-04 08:49 | XMS_ITS | Clinical Summary ---
Author Organization [facility] [address] Address [address] [place] [address] Care Team Providers Care Software Engineer Web Services Name Role Phone Fuad, Floresita Pickard NP Unavailable Luis Alberto Edwards MD Unavailable [phone] Bernadine Hall DO Primary Care Provider [phone] Allergies Active Allergy Reactions Criticality Noted Date Comments Adhesive Redness Low 09/01/2020 Medications ibuprofen (ADVIL,MOTRIN) 800 mg tablet every 6 (six) hours as needed 07/30/2020 Active atorvastatin (LIPITOR) 20 mg tablet Take 1 tablet (20 mg total) by mouth daily 08/19/2020 Active losartan (COZAAR) 100 mg tablet Take 1 tablet (100 mg total) by mouth daily 11/17/2020 Active hydroCHLOROthia zide (HYDRODIURIL) 25 mg tablet Take 1 tablet (25 mg total) by mouth daily 30 tablet 04/28/2023 Active meloxicam (MOBIC) 15 mg tablet Take 1 tablet (15 mg total) by mouth daily Active potassium chloride ER (KLOR-CON) 20 mEq CR tablet Take 1 tablet (20 mEq total) by mouth daily 30 tablet 05/11/2023 Active Problems Problem Noted Date Diagnosed Date 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 Overview (08/15/2020): Added automatically from request for surgery [id number] Dizziness 12/10/2016 Near syncope 12/10/2016 VENKAT (obstructive sleep apnea) 12/10/2016 Essential hypertension 12/10/2016 Encounters Date Type Department Care Team Description 05/22/2024 Telephone Ar[facility]hythmia [facility] [address] [facility] [address] [place] [phone] Floresita Merida NP from Last 3 Months Surgical History Surgery Date Site/Laterality Comments APPENDECTOMY PARTIAL HIP ARTHROPLASTY Medical History Medical History Date Comments Hypertension Dizziness 12/10/2016 Near syncope 12/10/2016 Arrhythmia Family History Medical History Relation Name Comments Pneumonia Father Alcohol abuse Mother Kidney disease Mother Relation Name Status Comments Father (Age 80) Mother (Age 60) Social History Tobacco Use Types Packs/Day Years Used Date Smoking Tobacco: Never Smokeless Tobacco: Never Tobacco Cessation:Counseling Given: Not Answered Alcohol Use Standard Drinks/Week Comments Yes 0 (1 standard drink = 0.6 oz pur e alcohol) rarely AUDIT-C Answer Date Recorded Q1: How often do you have a drink containing alc ohol? Monthly or less 09/01/2020 Q2: How many drinks containi ng alcohol do you have on a typical day when you are drinking? 1 or 2 09/01/2020 Q3: How often do you have si x or more drinks on one occasion? Never 09/01/2020 Comments Unknown Sex and Gender Information Value Date Recorded Sex Assigned at Not on file Legal Sex Female 3:41 AM CLINICAL IMMUNOLOGIST Gender Identity Not on file Sexual Orientation Not on file Obstetrics History Last Filed Vital Signs Vital Sign Reading Time Taken Comments Blood Pressure 98/56 10/27/2023 10:41 AM CDT Pulse 74 10/27/2023 10:41 AM CDT Temperature 36.7 C (98 F) 09/01/2020 11:45 AM CDT Respiratory Rate 25 09/01/2020 2:11 PM CDT Oxygen Saturation 96% 04/28/2023 9:29 AM CLINICAL IMMUNOLOGIST Inhaled Oxygen Concentration - - Weight 66.7 kg (147 lb) 10/27/2023 10:41 AM CDT Height 162.6 cm (5' 4 ) 04/28/2023 9:29 AM CLINICAL IMMUNOLOGIST Body Mass Index 25.23 04/28/2023 9:29 AM CLINICAL IMMUNOLOGIST Plan of Treatment Health Maintenance Due Date Last Done Comments Depression Screening 1945 Hepatitis C Screening 1945 Osteoporosis Screening-Bone Density Scan 1945 Hepatitis B Screening 11/12/1963 Pneumococcal vaccine 65+ (1 of 1 - PCV) 11/12/1995 Zoster Vaccine (1 of 2) 11/12/1995 Well Visit 65+ 2010 Fall Risk Assessment 09/01/2021 09/01/2020 Influenza Vaccine (#1) 2023 01/29/2019, 2017 DTaP/Tdap/Td Vaccine (2 - Td or Tdap) 02/28/2030 Medical Devices Implanted Type Area Accounts Receivable Representative Device Identifier Shelf Expiration Date Model / Serial / Lot [employer] [id number] System 6-12fr Mvp Venous Closure Vascade - [id number] - [id number] Implanted:Qty: 1 on 09/01/2020 by Philip Leach MD at [facility] [employer] 06/30/2022 800-612C-10 U / [id number] / [employer] [id number] System 6-12fr Mvp Venous Closure Vascade - [id number] - [id number] Implanted:Qty: 1 on 09/01/2020 by Philip Leach MD at [facility] [employer] 06/30/2022 800-612C-10 U / [id number] / [employer] [id number] Device Closure Vascade Od5 Fr Femoral Artery - [id number] - [id number] Implanted:Qty: 1 on 09/01/2020 by Philip Leach MD at [facility] [employer] 06/09/2022 700-500DX-0 5U / [id number] / [id number] [employer] [id number] Device Closure Vascade Od5 Fr Femoral Artery - [id number] - [id number] Implanted:Qty: 1 on 09/01/2020 by Philip Leach MD at [facility] [employer] 06/25/2022 700-500DX-0 5U / [id number] / [employer] [id number] Device Closure Vascade Od5 Fr Femoral Artery - [id number] - [id number] Implanted:Qty: 1 on 09/01/2020 by Philip Leach MD at [facility] [employer] 06/25/2022 700-500DX-0 5U / [id number] [id number] / Insurance MDCR HMO REF Member Subscriber Plan / Payer (Ef fective 2020-Present) Name:Noni Wilson Relation to Subscriber:Self Name:Noni Wilson Payer ID:[id number] (NAIC) Type:[facility] MEDICARE Address: [place] [phone] MEDICARE ADVANTAGE Care Teams Software Engineer Web Services Relationship Specialty Start Date End Date Bernadine Hall DO [facility] [facility] [place] [address] PCP - General Family Medicine 01/31/23 Floresita Merida NP Nurse Practitioner Cardiology 09/01/20 Luis Alberto Edwards MD Consulting Physician Cardiology 10/17/20
--- OUTSIDE RECORDS SUMMARY | 2024-06-04 08:49 | XMS_ITS | Referral Summary ---
Author Organization [facility] [address] Address [address] [place] [address] Care Team Providers Care Insurance Actuary Name Role Phone Floresita Merida CERTIFIED RECREATIONAL THERAPIST Unavailable Luis Alberto Edwards MD Unavailable Bernadine Hall DO Primary Care Provider [phone] Encounters Date Type Department Care Team Description 05/22/2024 Telephone Arrhythmia Center [address] [facility] [address] [place] [phone] Floresita Merida, RAISSA from Last 3 Months Allergies Active Allergy Reactions Criticality Noted Date [...] mg total) by mouth daily 30 tablet 11 04/28/2023 Active meloxicam (MOBIC) 15 mg tablet Take 1 tablet (15 mg total) by mouth daily Active potassium chloride ER (KLOR-CON) 20 mEq CR tablet Take 1 tablet (20 mEq total) by mouth daily 30 tablet 11 05/11/2023 5 Active Problems Problem Noted Date Diagnosed Date AVNRT (AV nick re-entry tachycardia) ([facility]) 08/15/2020 Overview (08/15/2020): Added automatically from request for surgery [id number] Dizziness 12/10/2016 Near syncope 12/10/2016 VENKAT (obstructive sleep apnea) 12/10/2016 Essential hypertension 12/10/2016 Social History Tobacco Use Types Packs/Day Years [...] on file Legal Sex Female 3:41 AM TELLER COORDINATOR Gender Identity Not on file Sexual Orientation Not on file Last Filed Vital Signs Vital Sign Reading Time Taken Comments Blood Pressure 98/56 10/27/2023 10:41 AM CDT Pulse 74 10/27/2023 10:41 AM CDT Temperature 36.7 C (98 F) 09/01/2020 11:45 AM CDT Respiratory Rate 25 09/01/2020 2:11 PM CDT Oxygen Saturation 96% 04/28/2023 9:29 AM TELLER COORDINATOR Inhaled Oxygen Concentration - - Weight 66.7 kg (147 lb) 10/27/2023 10:41 AM CDT Height 162.6 cm (5' 4 ) 04/28/2023 9:29 AM TELLER COORDINATOR Body Mass Index 25.23 04/28/2023 9:29 AM TELLER COORDINATOR Plan of Treatment Not on file Medical Devices Implanted Type Area Family Sociologist Device Identifier Shelf Expiration Date Model / Serial / Lot A [employer] [id number] System 6-12fr Mvp Venous Closure Vascade - [id number] - [id number] Implanted:Qty: 1 on 09/01/2020 by Philip Leach MD at [facility] [employer] 06/30/2022 800-612C-10 U / [id number] / [employer] [id number] System 6-12fr Mvp Venous Closure Vascade - [id number] - [id number] Implanted:Qty: 1 on 09/01/2020 by Philip Leach MD at [facility] [employer] 06/30/2022 800-612C-10 U / [id number] / [employer] [id number] Device Closure Vascade Od5 Fr Femoral Artery - [id number] - [id number] Implanted:Qty: 1 on 09/01/2020 by Philip Leach MD at [facility] [employer] 06/09/2022 700-500DX-0 5U / [id number] / [id number] [employer] [id number] Device Closure Vascade Od5 Fr Femoral Artery - [id number] - [id number] Implanted:Qty: 1 on 09/01/2020 by Philip Leach MD at [facility] [employer] 06/25/2022 700-500DX-0 5U / [id number] / [employer] [id number] Device Closure Vascade Od5 Fr Femoral Artery - [id number] - [id number] Implanted:Qty: 1 on 09/01/2020 by Philip Leach MD at [facility] [employer] 06/25/2022 700-500DX-0 5U / [id number] [id number] / Insurance [facility] HMO REF UHC MEDICARE ADVANTAGE Care Teams Insurance Actuary Relationship Specialty Start Date End Date Bernadine Hall DO [address] [place] [address] [place] [address] PCP - General Family Medicine 01/31/23 Floresita Merida NP Nurse Practitioner Cardiology 09/01/20 Luis Alberto Edwards MD Consulting Physician Cardiology 10/17/20
--- OUTSIDE RECORDS SUMMARY | 2024-06-04 08:50 | XMS_ITS | Encounter Summary ---
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 Social History Tobacco Use Types Packs/Day Years Used Date Smoking Tobacco: Never Assessed Sex and Gender Information Value Date Recorded Sex Assigned at Not on file Gender Identity Not on file Sexual Orientation Not on file documented as of this encounter Plan of Treatment Not on file documented as of this encounter Procedures Procedure Name Priority Date/Time Associated Diagnosis Comments DERMATOPATHOLOGY Routine 10/12/2022 12:0 0 AM CDT Neoplasm of uncertain behavior of skin 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 SKIN, left dorsal hand: HYPERPLASTIC (HYPERTROPHIC) ACTINIC KERATOSIS (L57.0) DERMAL SCAR (L90.5) Specimen B. 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 The specimen consists of a shave biopsy measuring 13x7x1 mm. Jar 0. Specimen B: Received is one formalin filled container labeled with the patient's name and designated right neck. The specimen consists of a shave biopsy measuring 7x5x1 mm. Jar 0. 3 12:26 PM [facility] DERMATOPATHOLOGY LABORATORY Microscopic Description Specimen A. SKIN, left dorsal hand: There is hyperkeratosis alternating with parakeratosis. There is epidermal hyperplasia with disorderly maturation of keratinocytes with nuclear pleomorphism confined to the lower half of the epidermis. There are fibroblasts and collagen bundles oriented parallel to the skin surface with elongated blood vessels, some of which are oriented perpendicular to the skin surface. Specimen B. SKIN, right neck: The epidermis shows parakeratosis, full thickness disorderly maturation of keratinocytes, mitoses at different levels, and dyskeratotic cells. 3 12:26 PM [facility] DERMATOPATHOLOGY LABORATORY Disclaimer An external and internal positive and negative controls are appropriate for the histochemical, immunohistochemical and immunofluorescence stain(s) in this case (if any), except where stated explicitly. The performance characteristics of the stain(s) cited in this report were developed and its performance characteristic determined by the Dermatopathology Laboratory at [facility], directed by Dr. Negrita Davis. These tests need not be, and therefore are not, approved by the [place] Food and Drug Administration. The tests are used for clinical purposes. Billing Codes Specimen Charges Stain Charges 68002 03858 1 1 3 12:26 PM CDT DERMATOPATHOLOGY LABORATORY Embedded Images 3 12:26 PM [facility] DERMATOPATHOLOGY LABORATORY Pathology/Cytology TISSUE SPECIMEN FROM SKIN / Unknown 10/12/2022 10/13/2022 1:25 PM CDT Miscellaneous samples (specimen) TISSUE SPECIMEN FROM SKIN / Unknown 10/12/2022 10/13/2022 1:25 PM CDT Caterina Lopez MD LAB - PATHOLOGY/CYTO LOGY ORDERABLES DERMATOPATHOLOGY LABORATORY [facility] - Department of Dermatology [facility] Medicine [address] [place] [address], [address] [phone] documented in this encounter Visit Diagnoses Diagnosis 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
--- OUTSIDE RECORDS SUMMARY | 2024-06-04 08:50 | XMS_ITS | Clinical Summary ---
Author Organization [facility] Address [address] [place] [address] Care Team Providers Care Glazier Supervisor Name Role Phone Unavailable Primary Care Provider Unavailabl e Social History Tobacco Use Types Packs/Day Years Used Date Smoking Tobacco: Never Assessed Comments Unknown Sex and Gender Information Value Date Recorded Sex Assigned at Not on file Legal Sex Female 7:57 PM CDT Gender Identity Not on file Sexual Orientation Not on file Plan of Treatment Health Maintenance Due Date Last Done Comments Hepatitis C 11/12/1963 DTaP, Tdap and Td Vaccines ( 1 - Tdap) 1964 Zoster Vaccines (1 of 2) 11/12/1995 Dexa Scan (General) 2010 Pneumococcal Vaccine: 65+ Ye ars (1 of 1 - PCV) 2010 RSV Immunization or 60+ Years (1 - 1-dose 75+ series) 2020 COVID-19 Vaccine (2023-2 5 season) 2023 Influenza Adult (#1) 2023 Meningococcal B Vaccine Aged Out No l onger eligible based on patient's age to complete this topic Meningococcal Vaccine Aged Out No qing kristy eligible based on patient's age to complete this topic RSV Immunizations Under 20 Months Aged Out No longer eligible based on patient's age to complete this topic
--- OUTSIDE RECORDS SUMMARY | 2024-06-04 08:50 | XMS_ITS | Clinical Summary ---
Author Organization [facility] Address [address] [place] [address] Care Team Providers Care Trestle Mainternance Laborer Name Role Phone Unavailable Primary Care Provider Unavailabl e Source Comments [facility] [employer],non-owned Affiliates and Associated Physician Practices is amultiple site organization consisting of ambulatory clinics and hospital sitesin [place], [place], [place] and [place]. This disclosure is being madepursuant to the Care Everywhere program and may not contain all information available regarding this patient. Last updated 17.[facility] [employer] Social History Tobacco Use Types Packs/Day Years Used Date Smoking Tobacco: Never Assessed Sex and Gender Information Value Date Recorded Sex Assigned at Not on file Gender Identity Not on file Sexual Orientation Not on file Plan of Treatment Health Maintenance Due Date Last Done Comments BONE DENSITY TESTING 1945 HEPATITIS C SCREENING 11/07/1963 DTAP/TDAP/TD VACCINES (1 - Tdap) 1964 PNEUMOCOCCAL VACCINE 50+ (1 of 1 - PCV) 11/12/1995 ZOSTER VACCINE (1 of 2) 11/12/1995 Respiratory Syncytial Virus (RSV) Vaccine Pt: or over 60 yrs (1 - 1-dose 75+ series) 2020 COVID-19 VACCINE ( - 2023-2 5 season) 2023 INFLUENZA VACCINE (#1) 2023 DEPRESSION SCREENING 03/07/2024 MEDICARE AWV CALENDAR YEAR 2024 HEPATITIS B VACCINE Aged Out No longe r eligible based on patient's age to complete this topic HIB VACCINE Aged Out No longer eligi ble based on patient's age to complete this topic HPV VACCINE Aged Out No longer eligi ble based on patient's age to complete this topic MENINGOCOCCAL (Group B) VACC INE SHARED DECISION-MAKING Aged Out No longer eligibl e based on patient's age to complete this topic MENINGOCOCCAL GROUPS A/C/Y/W VACCINE Aged Out No longer eligible b ased on patient's age to complete this topic
--- OUTSIDE RECORDS SUMMARY | 2024-06-04 08:50 | XMS_ITS | Encounter Summary ---
Author Organization [facility] Address [address] [place] [address] Care Team Providers Care Software Quality Analyst Name Role Phone Unavailable Primary Care Provider Unavailabl e Encounter Details Date Type Department Care Team (Late st Contact Info) Description 12/07/2023 Lab Requisition [facility] - Derm[facility] Lab [address] [place] [phone] Kerry Tapia APRN-CNP [facility] DERMATOLOGY [address] [place] [phone] Neoplasm of uncertain behavior of skin Social History Tobacco Use Types Packs/Day Years Used Date Smoking Tobacco: Never Assessed Sex and Gender Information Value Date Recorded Sex Assigned at Not on file Gender Identity Not on file Sexual Orientation Not on file documented as of this encounter Plan of Treatment Not on file documented as of this encounter Procedures Procedure Name Priority Date/Time Associated Diagnosis Comments DERMATOPATHOLOGY Routine 12/07/2023 12:0 0 AM CDT Neoplasm of uncertain behavior of skin documented in this encounter Results * DERMATOPATHOLOGY (12/07/2023 12:00 AM CDT) Case Report Dermatopathology Report Case: [id number] Authorizing Provider: Kerry Tapia, Collected: 12/07/2023 12:00 AM PRODUCE BUYER-ORDER DETAILER Ordering Location: [facility] - Received: 12/08/2023 01:58 PM DermPath Lab Pathologist: Ting Monteiro MD Specimens: A) - Skin, right confucianist B) - Skin, right forearm 2:05 PM CDT DERMATOPATHOLOGY LABORATORY Final Diagnosis Specimen A. 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 SKIN, right forearm: SQUAMOUS CELL CARCINOMA IN SITU (JORGENSEN'S DISEASE) (D04.61) 2:05 PM T DERMATOPATHOLOGY LABORATORY Clinical History SCCIS vs BCC 2:05 PM T DERMATOPATHOLOGY LABORATORY Gross Description Specimen A: Received is one formalin filled container labeled with the patient's name and designated right confucianist. The specimen consists of a shave biopsy measuring 6x6x2 mm. Jar 0. Specimen B: Received is one formalin filled container labeled with the patient's name and designated right forearm. The specimen consists of a shave biopsy measuring 6x6x2 mm. Jar 0. 2:05 PM T DERMATOPATHOLOGY LABORATORY Microscopic Description Specimen A. SKIN, right confucianist: The epidermis shows parakeratosis, full thickness disorderly maturation of keratinocytes, mitoses at different levels, and dyskeratotic cells. Specimen B. SKIN, right forearm: The epidermis shows parakeratosis, full thickness disorderly maturation of keratinocytes, mitoses at different levels, and dyskeratotic cells. 2:05 PM T DERMATOPATHOLOGY LABORATORY Disclaimer An external and internal positive and negative controls are appropriate for the histochemical, immunohistochemical and immunofluorescence stain(s) in this case (if any), except where stated explicitly. The performance characteristics of the stain(s) cited in this report were developed and its performance characteristic determined by the Dermatopathology Laboratory at [facility], directed by Dr. Negrita Davis. These tests need not be, and therefore are not, approved by the [place] Food and Drug Administration. The tests are used for clinical purposes. Billing Codes Specimen Charges Stain Charges 68631 68634 1 1 2:05 PM CDT DERMATOPATHOLOGY LABORATORY Embedded Images 2:05 PM CDT DERMATOPATHOLOGY LABORATORY Pathology/Cytology TISSUE SPECIMEN FROM SKIN / Unknown 12/07/2023 12/08/2023 1:58 PM CDT Miscellaneous samples (specimen) TISSUE SPECIMEN FROM SKIN / Unknown 12/07/2023 12/08/2023 1:58 PM CDT Kerry Tapia PRODUCE BUYER-ORDER DETAILER LAB - PATH OLOGY/CYTOLOGY ORDERABLES DERMATOPATHOLOGY LABORATORY [facility] - Department of Dermatology [facility] [address] [place] [address], [address] [phone] documented in this encounter Visit Diagnoses Diagnosis Neoplasm of uncertain behavior of skin documented in this encounter
[2024-06-04 13:42] LABS: Hematocrit 39.1 % (37.0-47.0); Hemoglobin 12.7 g/dL (12.0-15.0); Mean Corpuscular HGB Conc 32.5 g/dl (32-36); Mean Corpuscular Volume 92.4 fl (80-100); Mean Platelet Volume 9.8 fl (7.4-10.4); Platelet Count Result 265 k/mm3 (150-375); Red Blood Count 4.23 M/mm3 (4.2-5.4); Red Cell Distribution Width 12.7 % (11.5-14.5); White Blood Count 6.1 K/mm3 (4.5-10.0)
[2024-06-04 14:14] LABS: Vitamin D 25 Hydroxy 15.8 ng/mL
[2024-06-04 14:26] LABS: Alanine Aminotransferase 17 U/L (6-35); Alkaline Phosphatase 81 U/L (38-126); Anion Gap 7 mmol/L (4-12); Aspartate Amino Transferase 39 U/L (14-36); Bilirubin,Total 0.4 mg/dL (0.2-1.3); Blood Urea Nitrogen 19 mg/dL (7-17); Calcium 9.5 mg/dL (8.4-10.2); Carbon Dioxide 29 mmol/L (22-30); Chloride 107 mmol/L (98-107); Cholesterol 159 mg/dL (0-200); Estimated Glomerular Filt Rate > 60; Glucose 82 mg/dL (65-110); HDL Direct 60 mg/dL; Potassium 4.5 mmol/L (3.4-5.0); Sodium 143 mmol/L (137-145); Triglycerides 94 mg/dL (<150)
[2024-06-04 14:42] LABS: LDL Cholesterol Direct 61 mg/dL
== END 2024-06-04 08:29 | disposition home or self-care (01) ==
LOC: ANHGOSHLAB 08:29
PROVIDERS: PCP Family Medicine; Visit Provider Nurse Practitioner
DX: E03.9 Hypothyroidism, unspecified (principal); E55.9 Vitamin D deficiency, unspecified; R73.01 Impaired fasting glucose; I10 Essential (primary) hypertension; E78.2 Mixed hyperlipidemia
CPT/HCPCS: 36415; 80053; 80061; 82306; 83036; 84443; 85027

== ENCOUNTER 2024-09-25 16:52 | Emergency (ER) | payer MEDICARE, SELFPAY ==
--- NOTE | ~2024-09-25 | CT_ITS ---
EXAMINATION: CTA brain carotid DATE: 09/26/2024 7:48 CDT INDICATION: Hypertension. Vertigo. TECHNIQUE: Computed tomographic angiography (CTA) of the head was performed without and with 100 mL O mnipaque-350 intravenous contrast. CTA of the neck was performed with intravenous contrast. The dose- length product was 949.90 mGy-cm. Maximum intensity projection and volume rendered 3D-reconstructions were created by the technologist on a separate workstation. Automated exposure control and iterative reconstruction technique were employed. COMPARISON: CT head dated 09/25/2024. FINDINGS: HEAD CTA: Patent intracranial circulation without evidence for significant stenosis, occlusion or ane urysm. NECK CTA: There is atherosclerosis of the aorta with ectasia. There is common origin of the carotid a rteries without significant stenosis. Origin of the vertebral arteries is patent. No evidence for dis section, significant stenosis or occlusion. There is less than 20% stenosis of the proximal right internal carotid artery relative to normal dist al artery lumen diameter (NASCET criteria). There is less than 20% stenosis of the proximal left inte rnal carotid artery relative to normal distal artery lumen diameter. IMPRESSION: 1: No significant vascular abnormality of the head or neck. Reviewed, dictated and finalized at location A.
--- NOTE | ~2024-09-25 | XR_ITS ---
CHEST RADIOGRAPH, PA AND LATERAL CLINICAL HISTORY: high blood pressure, cardiac hx . COMPARISON: 03/08/2023 TECHNIQUE: PA and lateral views of the chest. FINDINGS The cardiomediastinal silhouette is unremarkable. The lungs are clear. IMPRESSION: No focal infiltrate or effusion. Reviewed, dictated and finalized at location A.
--- NOTE | ~2024-09-25 | CT_ITS ---
EXAMINATION: CT brain wo con DATE: 09/25/2024 23:10 INDICATION: HTN, dizzy . TECHNIQUE: Computed tomography (CT) of the head was performed without intravenous contrast. The mA wa s adjusted according to patient size. Iterative reconstruction technique was employed. The dose-lengt h product was 681.00 mGy-cm. COMPARISON: 10/12/2020; MR brain 10/13/2020. FINDINGS: No acute intracranial hemorrhage or extra-axial fluid collection. No hydrocephalus, mass, or herniation. No acute ischemic infarct. Unremarkable dural venous sinus attenuation. No acute osseous abnormality. The aerated spaces are clear. Mild atrophy and chronic white matter change. Atherosclerotic intracranial calcification. Bilateral l ens replacements. IMPRESSION: No acute intracranial process. Reviewed, dictated and finalized at location K.
--- OUTSIDE RECORDS SUMMARY | 2024-09-25 16:54 | XMS_ITS | Encounter Summary ---
Author Organization [facility] Address [address] [facility] [place] [address] Care Team Providers Care Department Operations Manager Name Role Phone Unavailable Primary Care Provider Unavailabl e Encounter Details Date Type Department Care Team (Late st Contact Info) Description 12/07/2023 Lab Requisition [facility] - DermPath Lab [address] [place] [id number] Kerry Tapia APRN-CNP [facility] DERMATOLOGY [address] [place] [phone] Neoplasm of uncertain behavior of skin Social History Tobacco Use Types Packs/Day Years Used Date Smoking Tobacco: Never Assessed Comments Unknown Sex and Gender Information Value Date Recorded Sex Assigned at Not on file Legal Sex Female 4:36 PM CDT Gender Identity Not on file [...] AM CDT) Case Report Dermatopathology Report Case: [id number] Authorizing Provider: Kerry Tapia, Collected: 12/07/2023 12:00 AM ROUTE SALES TRAINEE-SCALE TANK OPERATOR Ordering Location: [facility] - Received: 12/08/2023 01:58 PM DermPath Lab Pathologist: Ting Monteiro MD Specimens: A) - Skin, right zoroastrian B) - Skin, right forearm 2:05 PM CDT DERMATOPATHOLOGY LABORATORY Final Diagnosis Specimen A. 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 The specimen consists of a shave biopsy measuring 6x6x2 mm. Jar 0. Specimen B: Received is one formalin filled container labeled with the patient's name and designated right forearm. The specimen consists of a shave biopsy measuring 6x6x2 mm. Jar 0. 2:05 PM T DERMATOPATHOLOGY LABORATORY Microscopic Description Specimen A. SKIN, right zoroastrian: The epidermis shows parakeratosis, full thickness disorderly [...] characteristic determined by the Dermatopathology Laboratory at [facility], directed by Dr. Negrita Davis. These tests need not be, and therefore are not, approved by the [place] Food and Drug Administration. The tests are used for clinical purposes. Billing Codes Specimen Charges Stain Charges 76769 40649 1 1 2:05 PM CDT DERMATOPATHOLOGY LABORATORY Embedded Images 2:05 PM CDT DERMATOPATHOLOGY LABORATORY Pathology/Cytology TISSUE SPECIMEN FROM SKIN / Unknown 12/07/2023 12/08/2023 1:58 PM CDT Miscellaneous samples (specimen) TISSUE SPECIMEN FROM SKIN / Unknown 12/07/2023 12/08/2023 1:58 PM CDT Kerry Tapia APRN-SCALE TANK OPERATOR LAB - PATHOLOGY/ANIBAL PICKARDOGEd ORDERABLES Final Result DERMATOPATHOLOGY LABORATORY [facility] - Department of Dermatology [facility] Specialized Medicine [address] [place] [address], [address] [phone] documented in this encounter Visit Diagnoses Diagnosis Neoplasm of uncertain behavior of skin documented in this encounter
--- OUTSIDE RECORDS SUMMARY | 2024-09-25 16:54 | XMS_ITS | Encounter Summary ---
Author Organization [facility] Address [address] [facility] [place] [address] Care Team Providers Care Book Solicitor Name Role Phone Unavailable Primary Care Provider Unavailabl e Encounter Details Date Type Department Care Team (Late st Contact Info) Description 10/12/2022 Lab Requisition [facility] - DermPath Lab [address] [place] [phone] Caterina Lopez MD [address] [place] [address] [place] [phone] Neoplasm of uncertain behavior of skin; Carcinoma [...] AM CDT) Case Report Dermatopathology Report Case: [id number] Authorizing Provider: Caterina Lopez MD Collected: 10/12/2022 12:00 AM Ordering Location: [facility] DermPath Lab Received: 10/13/2022 01:25 PM Pathologist: Purvi Whalen MD Specimens: A) - Skin, left dorsal hand B) - Skin, right neck 12:26 PM CDT DERMATOPATHOLOGY LABORATORY Final Diagnosis Specimen A. SKIN, left dorsal hand: HYPERPLASTIC (HYPERTROPHIC) ACTINIC KERATOSIS (L57.0) DERMAL SCAR (L90.5) Specimen B. 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 Jar 0. 3 12:26 PM [facility] DERMATOPATHOLOGY LABORATORY Microscopic Description Specimen A. SKIN, [...] levels, and dyskeratotic cells. 3 12:26 PM [facility] DERMATOPATHOLOGY LABORATORY Disclaimer An external and internal positive and negative controls are appropriate for the histochemical, immunohistochemical and immunofluorescence stain(s) in this case (if any), except where stated explicitly. The performance characteristics of the stain(s) cited in this report were developed and its performance characteristic determined by the Dermatopathology Laboratory at [facility], directed by Dr. Negrita Davis. These tests need not be, and therefore are not, approved by the [place] Food and Drug Administration. The tests are used for clinical purposes. Billing Codes Specimen Charges Stain Charges 66727 03902 1 1 3 12:26 PM CDT DERMATOPATHOLOGY LABORATORY Embedded Images 12:26 PM T DERMATOPATHOLOGY LABORATORY Pathology/Cytology TISSUE SPECIMEN FROM SKIN / Unknown 10/12/2022 10/13/2022 1:25 PM CDT Miscellaneous samples (specimen) TISSUE SPECIMEN FROM SKIN / Unknown 10/12/2022 10/13/2022 1:25 PM CDT us Caterina Lopez MD LAB - PATHOLOGY/CYTOLOGY ORDERAB LES Final Result DERMATOPATHOLOGY LABORATORY [facility] - Department of Dermatology [facility] Specialized Medicine [address] [place] [address], [address] [phone] documented in this encounter Visit Diagnoses Diagnosis 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
--- OUTSIDE RECORDS SUMMARY | 2024-09-25 16:54 | XMS_ITS | Clinical Summary ---
Author Organization [facility] [address] Address [address] [place] [address] Care Team Providers Care Infection Control Nurse Name Role Phone Floresita Merida NP Unavailable [phone] Luis Alberto Edwards MD Unavailable [phone] Bernadine Hall DO Primary Care Provider [phone] Allergies Active Allergy Reactions Criticality Noted Date Comments Adhesive Redness Low 09/01/2020 Medications ibuprofen (ADVIL,MOTRIN) 800 mg tablet every 6 (six) hours as needed 07/30/2020 Active atorvastatin (LIPITOR) 20 mg tablet Take 1 tablet (20 mg total) by mouth daily 08/19/2020 Active losartan (COZAAR) 100 mg tablet Take 1 tablet (100 mg total) by mouth daily 11/17/2020 Active hydroCHLOROthiaz doug (HYDRODIURIL) 25 mg tablet Take 1 tablet (25 mg total) by mouth daily 30 tablet 11 04/28/2023 Active meloxicam (MOBIC) 15 mg tablet Take 1 tablet (15 mg total) by mouth daily Active Active Problems Problem Noted Date Diagnosed Date AVNRT (AV nick re-entry tachycardia) (CMS/[facility], [facility]IN [facility]) 08/15/2020 Overview (08/15/2020): Added automatically from request for surgery [id number] Dizziness 12/10/2016 Near syncope 12/10/2016 VENKAT (obstructive sleep apnea) 12/10/2016 Essential hypertension 12/10/2016 Surgical History Surgery Date Site/Laterality Comments APPENDECTOMY [...] on file Legal Sex Female 3:41 AM SAS CLINICAL PROGRAMMER Gender Identity Not on file Sexual Orientation Not on file Obstetrics History Last Filed Vital Signs Vital Sign Reading Time Taken Comments Blood Pressure 98/56 10/27/2023 10:41 AM CDT Pulse 74 10/27/2023 10:41 AM CDT Temperature 36.7 C (98 F) 09/01/2020 11:45 AM CDT Respiratory Rate 25 09/01/2020 2:11 PM CDT Oxygen Saturation 96% 04/28/2023 9:29 AM SAS CLINICAL PROGRAMMER Inhaled Oxygen Concentration - - Weight 66.7 kg (147 lb) 10/27/2023 10:41 AM CDT Height 162.6 cm (5' 4) 04/28/2023 9:29 AM SAS CLINICAL PROGRAMMER Body Mass Index 25.23 04/28/2023 9:29 AM SAS CLINICAL PROGRAMMER Plan of Treatment Health Maintenance Due Date Last Done Comments Depression Screening 1945 Hepatitis C Screening 1945 Osteoporosis Screening-Bone Density Scan 1945 Hepatitis B Screening 11/12/1963 Pneumococcal vaccine 65+ (1 of 1 - PCV) 11/12/1995 Zoster Vaccine (1 of 2) 11/12/1995 Well Visit 65+ 2010 Fall Risk Assessment 09/01/2021 09/01/2020 Influenza Vaccine (Season Ended) 2024 01/30/20 19, 01/16/2018 DTaP/Tdap/Td Vaccine (2 - Td or Tdap) 02/28/2030 Medical Devices Implanted Type Area Printer Assistant Device Identifier Shelf Expiration Date Model / Serial / Lot [employer] [id number] System 6-12fr Mvp Venous Closure Vascade - [id number] - [id number] Implanted:Qty: 1 on 09/01/2020 by Philip Leach MD at [facility] [employer] 06/30/2022 800-612C-10 U / [id number] / [employer] [id number] System 6-12fr Mvp Venous Closure Vascade - [id number] - [id number] Implanted:Qty: 1 on 09/01/2020 by Philip Leach MD at [facility] [employer] 06/30/2022 800-612C-10 U / [id number] / [employer] [id number] Device Closure Vascade Od5 Fr Femoral Artery - [id number] - [id number] Implanted:Qty: 1 on 09/01/2020 by Philip Leach MD at [facility] [employer] 06/09/2022 700-500DX-0 5U / [id number] / [id number] [employer] [id number] Device Closure Vascade Od5 Fr Femoral Artery - [id number] - [id number] Implanted:Qty: 1 on 09/01/2020 by Philip Leach MD at [facility] [employer] 06/25/2022 700-500DX-0 5U / [id number] / [employer] [id number] Device Closure Vascade Od5 Fr Femoral Artery - [id number] - [id number] Implanted:Qty: 1 on 09/01/2020 by Philip Leach MD at [facility] [employer] 06/25/2022 700-500DX-0 5U / [id number] / Insurance [address] MDCR HMO REF Member Subscriber Plan / Payer (Ef fective 2020-Present) Name:Noni Wilson Relation to Subscriber:Self Name:Noni Wilson Payer ID:[id number] (NAIC) Type:[facility] MEDICARE Address: [place] [id number] MEDICARE ADVANTAGE Care Teams Infection Control Nurse Relationship Specialty Start Date End Date Bernadine Hall DO [address] [place] [address] [address] PCP - General Family Medicine 01/31/23 Floresita Merida NP Nurse Practitioner Cardiology 09/01/20 Luis Alberto Edwards MD Consulting Physician Cardiology 10/17/20
--- OUTSIDE RECORDS SUMMARY | 2024-09-25 16:54 | XMS_ITS | Referral Summary ---
Author Organization [facility] [address] Address [address] [place] [address] Care Team Providers Care Communications Engineer Name Role Phone Floresita Merida NP Unavailable [phone] Luis Alberto Edwards MD Unavailable [phone] Bernadine Hall DO Primary Care Provider [phone] Allergies Active Allergy Reactions Criticality Noted Date [...] Diagnosed Date AVNRT (AV nick re-entry tachycardia) ([facility]) 08/15/2020 Overview (08/15/2020): Added automatically from request for surgery [id number] Dizziness 12/10/2016 Near syncope 12/10/2016 VENKAT (obstructive [...] on file Legal Sex Female 3:41 AM OBSTETRICS/GYNECOLOGY NURSE Gender Identity Not on file Sexual Orientation Not on file Last Filed Vital Signs Vital Sign Reading Time Taken Comments Blood Pressure 98/56 10/27/2023 10:41 AM CDT Pulse 74 10/27/2023 10:41 AM CDT Temperature 36.7 C (98 F) 09/01/2020 11:45 AM CDT Respiratory Rate 25 09/01/2020 2:11 PM CDT Oxygen Saturation 96% 04/28/2023 9:29 AM OBSTETRICS/GYNECOLOGY NURSE Inhaled Oxygen Concentration - - Weight 66.7 kg (147 lb) 10/27/2023 10:41 AM CDT Height 162.6 cm (5' 4) 04/28/2023 9:29 AM OBSTETRICS/GYNECOLOGY NURSE Body Mass Index 25.23 04/28/2023 9:29 AM OBSTETRICS/GYNECOLOGY NURSE Plan of Treatment Not on file Medical Devices Implanted Type Area Spray Drier Device Identifier Shelf Expiration Date Model / Serial / Lot [employer] [id number] System 6-12fr Mvp Venous Closure Vascade - [id number] - [id number] Implanted:Qty: 1 on 09/01/2020 by Philip Leach MD at [facility] [employer] 06/30/2022 800-612C-10 U / [id number] / [employer] [id number] System 6-12fr Mvp Venous Closure Vascade - [id number] - [id number] Implanted:Qty: 1 on 09/01/2020 by Philip Leach MD at [facility] [employer] 06/30/2022 800-612C-10 U / [id number] / [employer] [id number] Device Closure Vascade Od5 Fr Femoral Artery - [id number] - [id number] Implanted:Qty: 1 on 09/01/2020 by Philip Leach MD at [facility] [employer] 06/09/2022 700-500DX-0 5U / [id number] / [id number] [employer] [id number] Device Closure Vascade Od5 Fr Femoral Artery - [id number] - [id number] Implanted:Qty: 1 on 09/01/2020 by Philip Leach MD at [facility] [employer] 06/25/2022 700-500DX-0 5U / [id number] / [employer] [id number] Device Closure Vascade Od5 Fr Femoral Artery - [id number] - [id number] Implanted:Qty: 1 on 09/01/2020 by Philip Leach MD at [facility] [employer] 06/25/2022 700-500DX-0 5U / [id number] [id number] / Insurance [id number] H[facility] REF [facility] Address[address] [place] [id number] [place] [address] [facility] MEDICARE ADVANTAGE [facility]IC[facility] Address: [facility] [address] [place] [address] Care Teams Communications Engineer Relationship Specialty Start Date End Date Bernaidne Hall DO [address] [place] [address] [place] [id number] PCP - General Family Medicine 01/31/23 Floresita Merida NP Nurse Practitioner Cardiology 09/01/20 Luis Alberto Edwards MD Consulting Physician Cardiology 10/17/20
--- OUTSIDE RECORDS SUMMARY | 2024-09-25 16:54 | XMS_ITS | Clinical Summary ---
Author Organization [facility] Address [address] [place] [address] Care Team Providers Care Bottle Feeder Name Role Phone Unavailable Primary Care Provider [...] Td Vaccines ( 1 - Tdap) 1964 Pneumococcal Vaccine: 50+ Ye ars (1 of 1 - PCV) 11/12/1995 Zoster Vaccines (1 of 2) 11/12/1995 Dexa Scan (General) 2010 RSV Immunization or 60+ Years (1 - 1-dose 75+ series) 2020 COVID-19 Vaccine ( - 2023-2 5 season) 2023 Meningococcal B Vaccine Aged Out No l onger eligible based on patient's age to complete this topic Meningococcal Vaccine Aged Out No qing kristy eligible based on patient's age to complete this topic RSV Immunizations Under 20 Months Aged Out No longer eligible based on patient's age to complete this topic
--- OUTSIDE RECORDS SUMMARY | 2024-09-25 16:54 | XMS_ITS | Clinical Summary ---
Author Organization [facility] Address [address] [place] [address] Care Team Providers Care Retail Sales Vitamin Consultant Name Role Phone Unavailable Primary Care Provider Unavailabl e Source Comments [facility],non-owned Affiliates and Associated Physician Practices is amultiple site organization consisting of ambulatory clinics and hospital sitesin [place], [place], [place] and [place]. This disclosure is being madepursuant to the Care Everywhere program and may not contain all information available regarding this patient. Last updated 17.[facility] Social History Tobacco Use Types Packs/Day Years [...] VACCINE ( - 2023-2 5 season) 2023 DEPRESSION SCREENING 03/07/2024 MEDICARE AWV CALENDAR YEAR 2024 INFLUENZA VACCINE (#1) 2024 HEPATITIS B VACCINE Aged Out No [...] on patient's age to complete this topic Insurance [facility] MANAGED MEDICARE ADV Apiphany [facility] MANAGED MEDICARE ADV MANAGED MEDICARE ADV [place] [id number]
[2024-09-25 16:55] VITALS: BP 188/87; PULSE 98; RESP 18; TEMP 36.6; O2SAT 98
--- NOTE | 2024-09-25 17:14 | ED.RECABL ---
HPI - Recheck/Abnormal Lab/Rx General Chief Complaint: Recheck/Abnormal Lab/Rx <Sola Isbell APRN - Last Filed: 09/25/24 17:16> Stated Complaint: htn <Sola Isbell APRN - Last Filed: 09/25/24 17:16> Time Seen by Provider: 09/25/24 17:10 <Sola Isbell APRN - Last Filed: 09/25/24 17:16> Focused HPI: Patient is a 78-year-old female who presents to the ER with an elevated blood pressure since Tuesday, 2 days ago. She endorses dizziness, intermittent bilateral lower extremity numbness, weakness, and intermittent headache during this time. Patient reports her symptoms have worsened since Tuesday. She endorses a history of high blood pressure, hyperlipidemia, and recent ophthalmology surgery. Patient denies any chest pain, shortness of breath, acute lower extremity swelling, or recent fevers. GENERAL: Well-appearing, well-nourished, and in no acute distress. HEAD: Normocephalic, atraumatic. CHEST: Clear to auscultation. ?No respiratory distress. HEART: Regular rate and rhythm.? NEURO: ?Alert and oriented x3. Patient screened in triage and initial orders placed.? ?Additional care and disposition to be based upon?diagnostic testing and treatment. <Sola Isbell APRN - Last Filed: 09/25/24 17:16> History of Present Illness HPI narrative: Agree with the HPI above. <Marc Robison MD - Last Filed: 09/26/24 06:59> Related Data Home Medications: Home Medications ?Medication ?Instructions ?Recorded ?Confirmed ?Last Taken ?Type gabapentin 300 mg capsule 300 mg PO DAILY 06/04/24 06/04/24 Unknown History losartan 100 mg tablet 100 mg PO DAILY 06/04/24 06/04/24 Unknown History meloxicam 15 mg tablet 15 mg PO DAILY 06/04/24 06/04/24 Unknown History <Sola Isbell APRN - Last Filed: 09/25/24 17:16> Allergies/Adverse Reactions: Allergies Allergy/AdvReac Type Severity Reaction Status Date / Time adhesive Allergy Unknown SKIN Verified 06/04/24 07:41 IRRITATION latex Allergy Unknown Skin Verified 06/04/24 07:41 Reaction sertraline AdvReac Confusion Verified 06/04/24 07:41 <Sola Isbell APRN - Last Filed: 09/25/24 17:16> Review of Systems Review of Systems: As reviewed above in HPI <Marc Robison MD - Last Filed: 09/26/24 06:59> [facility] Past Medical History Medical History: Medical History Hyperlipidemia Generalized osteoarthritis Essential (primary) hypertension Generalized anxiety disorder Major depressive disorder, recurrent episode, mild with anxious distress <Sola Isbell APRN - Last Filed: 09/25/24 17:16> Surgical History Surgical History: Surgical History History of total left hip arthroplasty (~09/14/21) History of cataract extraction History of right hip replacement History of tubal ligation History of cardiac radiofrequency ablation (08/2020) For SVT per Dr. Leach at [facility]. History of appendectomy <Sola Isbell APRN - Last Filed: 09/25/24 17:16> Family History Family History: Family History Sibling Depression Family history of cardiovascular disease Father Family history of glaucoma, Onset Age: 91 Mother Family history of alcoholism, Onset Age: 69 Family history of liver disease, Onset Age: 69 <Sola Isbell APRN - Last Filed: 09/25/24 17:16> Social History Social History: Social History Social History: The patient lives in [place] with her and daughter. Retired from working in a school cafeteria. Lifelong nonsmoker. Drinks perhaps 2 alcoholic beverages a week. No illicit substance use. She designates her son, Allan Wilson, and daughter Marleny as her surrogate decision maker. Code status: Full code. Smoking status: Never smoker Second hand tobacco smoke exposure: No Additional smoking assessment comments: PT DENIES ALL FORMS OF TOBBACO USE Alcohol intake: never Drinks per week: 2 Alcohol use details: 2-3/MONTH Substance use: current Substance use type: marijuana Other substance usage details: STATES COUPLE BITE SIZE BROWNIES 1-2 TIMES A WEEK Last use: 08/23/21 Do You Feel Safe in your Home?: Yes Lack of Transportation: No Lack of Food: Never True Current Housing: I Have Housing Concerned About Future Housing: No Difficulty Paying Gas/Electric Bills: No Difficulty Paying for Meds: No Currently Unemployed: No Education: High School Diploma/GED Difficulty w/ Childcare or Family Care: No Living arrangements: with family Occupation/Education: retired Gender identity (if verbalized by the patient): Female Sexual Orientation (if Verbalized by the Patient): Straight or Heterosexual Spiritual care concerns: No Agree to blood products: Yes <Sola Isbell APRN - Last Filed: 09/25/24 17:16> Exam Narrative: GENERAL: [Well-appearing, well-nourished, and in no acute distress.] HEAD: [Normocephalic, atraumatic.] EYES: [PERRLA and EOMI.] ENT: Nares clear, no rhinorrhea or epistaxis. Mucous membranes moist. NECK: Supple. CHEST: [Clear to auscultation. No respiratory distress.] HEART: [Regular rate and rhythm]. No murmur heard. [Normal peripheral pulses.] ABDOMEN: [Soft, nondistended], [nontender], [No rigidity or guarding] EXTREMITIES: Normal range of motion. [No edema.] SKIN: Warm, dry, no rash. NEURO: [No focal deficits]. Alert and oriented [x3.] No strength deficits, no ataxia in the arms or legs, no facial asymmetries. Ambulatory with a steady gait throughout the emergency department. PSYCH: Tearful mood and affect <Marc Robison MD - Last Filed: 09/26/24 06:59> Course Vital Signs Vital signs: Vital Signs Temperature 36.6 C 09/25/24 16:55 Pulse Rate 98 09/25/24 16:55 Respiratory Rate 18 09/25/24 16:55 Blood Pressure 188/87 H 09/25/24 16:55 Pulse Oximetry 98 09/25/24 16:55 Temperature 36.6 C 09/25/24 16:55 Pulse Rate 72 09/26/24 02:51 Respiratory Rate 18 09/26/24 02:51 Blood Pressure 170/89 H 09/26/24 02:51 Pulse Oximetry 97 09/26/24 02:51 Oxygen Delivery Room Air 09/25/24 23:19 <Sola Isbell APRN - Last Filed: 09/25/24 17:16> Vital Signs Temperature 36.6 C 09/25/24 16:55 Pulse Rate 98 09/25/24 16:55 Respiratory Rate 18 09/25/24 16:55 Blood Pressure 188/87 H 09/25/24 16:55 Pulse Oximetry 98 09/25/24 16:55 Temperature 36.6 C 09/25/24 16:55 Pulse Rate 72 09/26/24 02:51 Respiratory Rate 18 09/26/24 02:51 Blood Pressure 170/89 H 09/26/24 02:51 Pulse Oximetry 97 09/26/24 02:51 Oxygen Delivery Room Air 09/25/24 23:19 <Marc Robison MD - Last Filed: 09/26/24 06:59> MDM - Recheck/Abnormal Lab/Rx MDM Narrative Medical decision making narrative: 78-year-old female with history of hypertension, hyperlipidemia. She presents to the emergency department with complaints of elevated blood pressure readings and feeling lightheaded and dizzy. She states that she feels like she cannot walk easily and like the room is spinning around her. Endorses the sensation is worse with positions but not worse with certain times a day. Symptoms going on since Tuesday but progressively worsening over last 2 days. Has not tried any medications for this. Does take her morning blood pressure medications including losartan. Recent ophthalmology surgery with some residual blurriness in her left eye which is unchanged. Denies any chest pain, shortness a breath, extremity swelling, paresthesias in the legs, weakness in the arms or legs, facial asymmetry. She is otherwise very well-appearing. She has hypertension on vital signs but otherwise no tachycardia, fever, hypoxia. Blood pressure fluctuated throughout the encounter here in the emergency department with blood pressure in the 180s and then without interventions was down into the 140s and 50s. Given patient's elevated blood pressure readings in age and risk factors as well as her description of the events differential is broad but does include benign Pradaxa small positional vertigo, central vertigo, stroke, TIA, dissection, vertebral insufficiency. She has an unremarkable neurological assessment with an NIH stroke scale 0 and she is ambulatory with a steady gait without any truncal ataxia or ataxia in the extremities. CT head and CT angiography of the head neck ordered. Cardiac workup ordered. She was given Valium for symptoms and re-evaluated. CT head shows no acute hemorrhage, CT angiography shows normal circulation without any aneurysm, no dissection or stenosis. No occlusion. Patient felt much better after the Valium and was able to walk without any difficulties or sensations of room spinning. She is afebrile here without any leukocytosis or anemia. Normal platelet count. Normal coag paulino panel. Normal electrolytes, normal creatinine, normal glucose, normal LFTs. Negative troponin. BNP is negative for age. Chest x-ray shows no infiltrates or effusion. EKG appears normal sinus rhythm with LVH consistent with her elevated blood pressure chronically. Given patient's symptomatic improvement with Valium I do not believe there is on the urgent or emergent concerns today given her reassuring workup and CT scans. She will have to follow up with regular doctor regarding her hypertension will be prescribed meclizine for BPPV until she can follow-up with her doctor and ENT on outpatient visit. She was given return precautions and discharge instructions. <Marc Robison MD - Last Filed: 09/26/24 06:59> Medical Records Attestation: I reviewed the patient's medical records. <Marc Robison MD - Last Filed: 09/26/24 06:59> Lab Data Attestation: I reviewed the patient's lab results. <Marc Robison MD - Last Filed: 09/26/24 06:59> Result diagrams: 09/25/24 17:26 09/25/24 17:26 <Sola Isbell APRN - Last Filed: 09/25/24 17:16> Labs: Lab Results 09/25/24 Range/Units 17:26 WBC 7.2 (4.5-10.0) K/mm3 RBC 4.82 (4.2-5.4) M/mm3 Hgb 13.8 (12.0-15.0) g/dL Hct 41.7 (37.0-47.0) % MCV 86.5 (80-100) fl MCH 28.6 (26-34) pg MCHC 33.1 (32-36) g/dl RDW 13.0 (11.5-14.5) % Plt Count 273 (150-375) k/mm3 MPV 9.2 (7.4-10.4) fl Immature Gran % (Auto) 0.4 (0-0.5) % Neut % (Auto) 62.5 (45.5-73.1) % Lymph % (Auto) 21.8 (18.3-44.2) % [place] % (Auto) 9.3 H (2.6-8.5) % Eos % (Auto) 5.4 H (0-4.4) % Baso % (Auto) 0.6 (0.2-1.2) % Lymph # (Auto) 1.57 (0.9-3.2) K/mm3 [place] # (Auto) 0.7 H (0.1-0.6) K/mm3 Eos # (Auto) 0.4 H (0-0.3) K/mm3 Baso # (Auto) 0.0 (0.0-0.1) K/mm3 Abs Immat Gran (auto) 0.03 (0.00-0.031) K/mm3 Absolute Neuts (auto) 4.5 (1.3-6.7) K/mm3 Absolute Nucleated RBC 0.000 (0.0-0.012) K/mm3 Nucleated RBC % 0.0 (0.0-0.2) % PT 13.3 (11.1-14.7) Seconds INR 1.0 APTT 25.1 (22.3-36.8) Seconds Sodium 138 (137-145) mmol/L Potassium 3.9 (3.4-5.0) mmol/L Chloride 109 H (98-107) mmol/L Carbon Dioxide 22 (22-30) mmol/L Anion Gap 7 (4-12) mmol/L BUN 19 H (7-17) mg/dL Creatinine 0.84 (0.7-1.0) mg/dL Estim Creat Clear Calc 40 ml/min Estimated GFR > 60 (59 - ) Glucose 100 (65-110) mg/dL Calcium 9.7 (8.4-10.2) mg/dL Total Bilirubin 0.3 (0.2-1.3) mg/dL AST 24 (14-36) U/L ALT 17 (6-35) U/L Alkaline Phosphatase 68 (38-126) U/L Troponin I < 0.012 (0.000-0.034) ng/mL NT-Pro-B Natriuret Pep 1290 H (19.9-100) pg/mL Total Protein 7.2 (6.3-8.2) g/dL Albumin 3.9 (3.5-5.1) g/dL <Sola Isbell, [employer] - Last Filed: 09/25/24 17:16> Lab Results 09/25/24 Range/Units 17:26 WBC 7.2 (4.5-10.0) K/mm3 RBC 4.82 (4.2-5.4) M/mm3 Hgb 13.8 (12.0-15.0) g/dL Hct 41.7 (37.0-47.0) % MCV 86.5 (80-100) fl MCH 28.6 (26-34) pg MCHC 33.1 (32-36) g/dl RDW 13.0 (11.5-14.5) % Plt Count 273 (150-375) k/mm3 MPV 9.2 (7.4-10.4) fl Immature Gran % (Auto) 0.4 (0-0.5) % Neut % (Auto) 62.5 (45.5-73.1) % Lymph % (Auto) 21.8 (18.3-44.2) % [place] % (Auto) 9.3 H (2.6-8.5) % Eos % (Auto) 5.4 H (0-4.4) % Baso % (Auto) 0.6 (0.2-1.2) % Lymph # (Auto) 1.57 (0.9-3.2) K/mm3 [place] # (Auto) 0.7 H (0.1-0.6) K/mm3 Eos # (Auto) 0.4 H (0-0.3) K/mm3 Baso # (Auto) 0.0 (0.0-0.1) K/mm3 Abs Immat Gran (auto) 0.03 (0.00-0.031) K/mm3 Absolute Neuts (auto) 4.5 (1.3-6.7) K/mm3 Absolute Nucleated RBC 0.000 (0.0-0.012) K/mm3 Nucleated RBC % 0.0 (0.0-0.2) % PT 13.3 (11.1-14.7) Seconds INR 1.0 APTT 25.1 (22.3-36.8) Seconds Sodium 138 (137-145) mmol/L Potassium 3.9 (3.4-5.0) mmol/L Chloride 109 H (98-107) mmol/L Carbon Dioxide 22 (22-30) mmol/L Anion Gap 7 (4-12) mmol/L BUN 19 H (7-17) mg/dL Creatinine 0.84 (0.7-1.0) mg/dL Estim Creat Clear Calc 40 ml/min Estimated GFR > 60 (59 - ) Glucose 100 (65-110) mg/dL Calcium 9.7 (8.4-10.2) mg/dL Total Bilirubin 0.3 (0.2-1.3) mg/dL AST 24 (14-36) U/L ALT 17 (6-35) U/L Alkaline Phosphatase 68 (38-126) U/L Troponin I < 0.012 (0.000-0.034) ng/mL NT-Pro-B Natriuret Pep 1290 H (19.9-100) pg/mL Total Protein 7.2 (6.3-8.2) g/dL Albumin 3.9 (3.5-5.1) g/dL <Marc Robison MD - Last Filed: 09/26/24 06:59> Imaging Data Attestation: I personally reviewed and interpreted this imaging study as follows: <Marc Robison MD - Last Filed: 09/26/24 06:59> My impression: Impressions Chest X-Ray 09/25/24 17:42 IMPRESSION: No focal infiltrate or effusion. Head CT 09/25/24 23:33 IMPRESSION: No acute intracranial process. <Marc Robison MD - Last Filed: 09/26/24 06:59> Discharge Plan Discharge Clinical Impression: Dizziness, Asymptomatic hypertension <Sola Isbell APRN - Last Filed: 09/25/24 17:16> Patient Disposition: Home <Soladora Isbell APRN - Last Filed: 09/25/24 17:16> Condition: Stable <Sola Isbell APRN - Last Filed: 09/25/24 17:16> Instructions: Antibiotic Form, Benign Paroxysmal Positional Vertigo (DC), Dizziness (ED) <Sola Isbell APRN - Last Filed: 09/25/24 17:16> Additional Instructions: Your laboratory studies and imaging including both CT scans were normal here in the emergency department. Your symptoms got better with medications. We will send you home with medications for control of symptoms and heavy follow-up with your regular doctor regarding her elevated blood pressure readings. Return with any emergent concerns at any time. <Sola Isbell APRN - Last Filed: 09/25/24 17:16> Patient Language: Occitan <Sola Isbell APRN - Last Filed: 09/25/24 17:16> Prescriptions: New meclizine 25 mg tablet 25 mg PO TID PRN (Reason: dizziness) 10 Days Qty: 30 0RF No Action losartan 100 mg tablet 100 mg PO DAILY meloxicam 15 mg tablet 15 mg PO DAILY gabapentin 300 mg capsule 300 mg PO DAILY cholecalciferol (vitamin D3) 25 mcg (1,000 unit) capsule 25 mcg PO DAILY Qty: 90 1RF atorvastatin 20 mg tablet 20 mg PO QAM Qty: 90 1RF Rx Instructions: TAKE 1 TABLET BY MOUTH EVERY DAY <Sola Isbell APRN - Last Filed: 09/25/24 17:16> Follow-up/Referrals: Beka Wright MD [Physician] - 1 Week (BPPV) Bernadine Hall DO [Primary Care Provider] - <Sola Isbell APRN - Last Filed: 09/25/24 17:16> Time of Disposition: 02:22 <Sola Isbell APRN - Last Filed: 09/25/24 17:16> 02:22 <Marc Robison MD - Last Filed: 09/26/24 06:59>
--- NOTE | 2024-09-25 17:17 | ECG_ITS ---
Test Date: 2024-09-25 17:28:52 Measurements Intervals [place] Rate: 83 P: 16 OR: 159 QRS: -25 QRSD: 94 T: 60 QT: 349 QTc: 412 Interpretive Statements SINUS RHYTHM LEFT VENTRICULAR HYPERTROPHY AND ST-T CHANGE [VOLTAGE CRITERIA PLUS ST/T ABNORMALITY] POSSIBLE ANTERIOR MYOCARDIAL INFARCTION , PROBABLY OLD [30 ms Q WAVE IN V3/V4, OR R < 0.2 mV IN V4] ABNORMAL ECG No previous ECG available for comparison Electronically Signed On 09-26-2024 09:59:44 CDT by Alhaji Montero M.D.
[2024-09-25 17:37] LABS: Hematocrit 41.7 % (37.0-47.0); Hemoglobin 13.8 g/dL (12.0-15.0); Immature Granulocyte Percent A 0.4 % (0-0.5); Lymphocytes Absolute Auto 1.57 K/mm3 (0.9-3.2); Mean Corpuscular HGB Conc 33.1 g/dl (32-36); Mean Corpuscular Hemoglobin 28.6 pg (26-34); Mean Corpuscular Volume 86.5 fl (80-100); Nucleated Red Blood Cells Absolute Auto 0.000 K/mm3 (0.0-0.012); Nucleated Red Blood Cells Perc 0.0 % (0.0-0.2); Platelet Count Result 273 k/mm3 (150-375); Red Blood Count 4.82 M/mm3 (4.2-5.4); White Blood Count 7.2 K/mm3 (4.5-10.0)
[2024-09-25 17:49] LABS: INR 1.0; Prothrombin Time 13.3 Seconds (11.1-14.7)
[2024-09-25 17:50] LABS: Partial Thromboplastin Time 25.1 Seconds (22.3-36.8)
[2024-09-25 18:00] LABS: Alanine Aminotransferase 17 U/L (6-35); Albumin Level 3.9 g/dL (3.5-5.1); Alkaline Phosphatase 68 U/L (38-126); Anion Gap 7 mmol/L (4-12); Aspartate Amino Transferase 24 U/L (14-36); Bilirubin,Total 0.3 mg/dL (0.2-1.3); Blood Urea Nitrogen 19 mg/dL (7-17); Calcium 9.7 mg/dL (8.4-10.2); Carbon Dioxide 22 mmol/L (22-30); Chloride 109 mmol/L (98-107); Estimated CRCL calculation 40 ml/min; Estimated Glomerular Filt Rate > 60; Glucose 100 mg/dL (65-110); Potassium 3.9 mmol/L (3.4-5.0); Sodium 138 mmol/L (137-145); Total Protein 7.2 g/dL (6.3-8.2)
[2024-09-25 18:07] LABS: NT Pro B Type Natriuretic Pept 1290 pg/mL (19.9-100); Troponin I < 0.012 ng/mL (0.000-0.034)
[2024-09-25 23:19] VITALS: BP 185/87; PULSE 72; RESP 17; O2SAT 96
--- OUTSIDE RECORDS SUMMARY | 2024-09-25 23:25 | XMS_ITS | Encounter Summary ---
Author Organization [facility] Address [address] [place] [address] Care Team Providers Care Vamp Strap Ironer Name Role Phone Unavailable Primary Care Provider Unavailabl e Encounter Details Date Type Department Care Team (Late st Contact Info) Description 10/12/2022 Lab Requisition [facility] - DermPath Lab [address] [place] [id number] Caterina Lopez MD [address] [place] [address] [place] [id number] Neoplasm of uncertain behavior of skin; Carcinoma [...] AM CDT) Case Report Dermatopathology Report Case: [id number] Authorizing Provider: Caterina Lopez MD Collected: 10/12/2022 12:00 AM Ordering Location: [facility] Derm[facility] Lab Received: 10/13/2022 01:25 PM Pathologist: [...] 7x5x1 mm. Jar 0. 3 12:26 PM [facility] DERMATOPATHOLOGY LABORATORY Microscopic Description Specimen A. [...] levels, and dyskeratotic cells. 3 12:26 PM [facility] DERMATOPATHOLOGY LABORATORY Disclaimer An external and internal positive and negative controls are appropriate for the histochemical, immunohistochemical and immunofluorescence stain(s) in this case (if any), except where stated explicitly. The performance characteristics of the stain(s) cited in this report were developed and its performance characteristic determined by the Dermatopathology Laboratory at [facility], directed by Dr. Negrita Davis. These tests need not be, and therefore are not, approved by the [place] Food and Drug Administration. The tests are used for clinical purposes. Billing Codes Specimen Charges Stain Charges 55867 96801 1 1 3 12:26 PM CDT DERMATOPATHOLOGY LABORATORY Embedded Images 12:26 PM T DERMATOPATHOLOGY LABORATORY Pathology/Cytology TISSUE SPECIMEN FROM SKIN / Unknown 10/12/2022 10/13/2022 1:25 PM CDT Miscellaneous samples (specimen) TISSUE SPECIMEN FROM SKIN / Unknown 10/12/2022 10/13/2022 1:25 PM CDT us aCterina Lopez MD LAB - PATHOLOGY/CYTOLOGY ORDERAB LES Final Result DERMATOPATHOLOGY LABORATORY [facility] - Department of Dermatology [facility] [address] [place] [address], [address] [phone] documented in this encounter Visit Diagnoses Diagnosis 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
--- OUTSIDE RECORDS SUMMARY | 2024-09-25 23:25 | XMS_ITS | Clinical Summary ---
Author Organization [facility] [place] [address] Address [address] [place] [address] Care Team Providers Care Repair Operator Name Role Phone Floresita Merida NP Unavailable [phone] Luis Alberto Edwards MD Unavailable [phone] Bernadine Hall DO Primary Care Provider [phone] Allergies Active Allergy Reactions Criticality Noted Date [...] Diagnosed Date AVNRT (AV nick re-entry tachycardia) (CMS/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 Overview (08/15/2020): Added automatically from request for surgery [id number] Dizziness 12/10/2016 Near syncope 12/10/2016 VENKAT (obstructive [...] on file Legal Sex Female 3:41 AM TERRESTRIAL ECOLOGIST Gender Identity Not on file Sexual Orientation Not on file Obstetrics History Last Filed Vital Signs Vital Sign Reading Time Taken Comments Blood Pressure 98/56 10/27/2023 10:41 AM CDT Pulse 74 10/27/2023 10:41 AM CDT Temperature 36.7 C (98 F) 09/01/2020 11:45 AM CDT Respiratory Rate 25 09/01/2020 2:11 PM CDT Oxygen Saturation 96% 04/28/2023 9:29 AM TERRESTRIAL ECOLOGIST Inhaled Oxygen Concentration - - Weight 66.7 kg (147 lb) 10/27/2023 10:41 AM CDT Height 162.6 cm (5' 4) 04/28/2023 9:29 AM TERRESTRIAL ECOLOGIST Body Mass Index 25.23 04/28/2023 9:29 AM TERRESTRIAL ECOLOGIST Plan of Treatment Health Maintenance Due Date [...] Tdap) 02/28/2030 Medical Devices Implanted Type Area Process Specialist Device Identifier Shelf Expiration Date Model / Serial / Lot [employer] [id number] System 6-12fr Mvp Venous Closure Vascade - [id number] - [id number] Implanted:Qty: 1 on 09/01/2020 by Philip Leach MD at [facility] [employer] 06/30/2022 800-612C-10 U / [id number] / [employer] [id number] System 6-12fr Mvp Venous Closure Vascade - [id number] - [id number] Implanted:Qty: 1 on 09/01/2020 by Philip Leach MD at [facility] [employer] 06/30/2022 800-612C-10 U / [id number] / [employer] [id number] Device Closure Vascade Od5 Fr Femoral Artery - [id number] - [id number] Implanted:Qty: 1 on 09/01/2020 by Philip Leach MD at [facility] [employer] 06/09/2022 700-500DX-0 5U / [id number] / [id number] [employer] [id number] Device Closure Vascade Od5 Fr Femoral Artery - [id number] - [id number] Implanted:Qty: 1 on 09/01/2020 by Philip Leach MD at [facility] [employer] 06/25/2022 700-500DX-0 5U / [id number] / [employer] [id number] Device Closure Vascade Od5 Fr Femoral Artery - [id number] - [id number] Implanted:Qty: 1 on 09/01/2020 by Philip Leach MD at [facility] [employer] 06/25/2022 700-500DX-0 5U / [id number] / Insurance [address] [employer] HMO REF Member Subscriber Plan / Payer (Ef fective 2020-Present) Name:Noni Wilson Relation to Subscriber:Self Name:Noni Wilson Payer ID:[id number] (NAIC) Type:[facility] MED[facility] Address: [place] [id number] MEDICARE ADVANTAGE Care Teams Repair Operator Relationship Specialty Start Date End Date Bernadine Hall DO [address] [place] [address] [address] PCP - General Family Medicine 01/31/23 Floresita Merida NP Nurse Practitioner Cardiology 09/01/20 Luis Alberto Edwards MD Consulting Physician Cardiology 10/17/20
--- OUTSIDE RECORDS SUMMARY | 2024-09-25 23:25 | XMS_ITS | Clinical Summary ---
Author Organization [facility] Address [address] [place] [id number] Care Team Providers Care Nut Roaster Name Role Phone Unavailable Primary Care Provider [...]
--- OUTSIDE RECORDS SUMMARY | 2024-09-25 23:25 | XMS_ITS | Encounter Summary ---
Author Organization [facility] Address [address] [place] [address] Care Team Providers Care Sweet Pickled Fruit Maker Name Role Phone Unavailable Primary Care Provider Unavailabl e Encounter Details Date Type Department Care Team (Late st Contact Info) Description 12/07/2023 Lab Requisition [facility] - DermPath Lab [address] [place] [phone] Kerry Tapia APRN-CNP [facility] DERMATOLOGY [address] [place] [phone] Neoplasm of uncertain behavior of skin [...] AM CDT) Case Report Dermatopathology Report Case: [id number] Authorizing Provider: Kerry Tapia, Collected: 12/07/2023 12:00 AM COLLAR WORKER-BATCH AND FURNACE MANAGER Ordering Location: [facility] - Received: 12/08/2023 01:58 PM DermPath Lab Pathologist: Ting Monteiro MD Specimens: A) - Skin, right mu-ism B) - Skin, right forearm 2:05 PM CDT DERMATOPATHOLOGY LABORATORY Final Diagnosis Specimen A. 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 The specimen consists of a shave biopsy measuring 6x6x2 mm. Jar 0. Specimen B: Received is one formalin filled container labeled with the patient's name and designated right forearm. The specimen consists of a shave biopsy measuring 6x6x2 mm. Jar 0. 2:05 PM T DERMATOPATHOLOGY LABORATORY Microscopic Description Specimen A. SKIN, right mu-ism: The epidermis shows parakeratosis, full thickness disorderly [...] characteristic determined by the Dermatopathology Laboratory at [facility], directed by Dr. Negrita Davis. These tests need not be, and therefore are not, approved by the [place] Food and Drug Administration. The tests are used for clinical purposes. Billing Codes Specimen Charges Stain Charges 72144 74626 1 1 2:05 PM CDT DERMATOPATHOLOGY LABORATORY Embedded Images 2:05 PM CDT DERMATOPATHOLOGY LABORATORY Pathology/Cytology TISSUE SPECIMEN FROM SKIN / Unknown 12/07/2023 12/08/2023 1:58 PM CDT Miscellaneous samples (specimen) TISSUE SPECIMEN FROM SKIN / Unknown 12/07/2023 12/08/2023 1:58 PM CDT Kerry Tapia APRN-BATCH AND FURNACE MANAGER LAB - PATHOLOGY/ANIBAL PICKARDOGEd ORDERABLES Final Result DERMATOPATHOLOGY LABORATORY [facility] - Department of Dermatology [facility] Specialized Medicine [address] [place] [address], [address]rd Floor [address] [phone] documented in this encounter Visit Diagnoses Diagnosis Neoplasm of uncertain behavior of skin documented in this encounter
--- OUTSIDE RECORDS SUMMARY | 2024-09-25 23:25 | XMS_ITS | Clinical Summary ---
Author Organization [facility] Address [address] [place] [address] Care Team Providers Care Photocopying Machine Operator Name Role Phone Unavailable Primary Care Provider Unavailabl e Source Comments [facility],non-owned Affiliates and Associated Physician Practices is amultiple site organization consisting of ambulatory clinics and hospital sitesin [place], [place], [place] and [place]. This disclosure is being madepursuant to the Care Everywhere program and may not contain all information available regarding this patient. Last updated 17.[facility] Social History Tobacco Use Types Packs/Day Years [...] patient's age to complete this topic Insurance [facility] MANAGED MEDICARE ADV [email or web address] [facility] MANAGED MEDICARE ADV MANAGED MEDICARE ADV [place] [id number]
--- OUTSIDE RECORDS SUMMARY | 2024-09-25 23:25 | XMS_ITS | Referral Summary ---
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 Overview (08/15/2020): Added automatically from request for surgery [id number] Dizziness 12/10/2016 Near syncope 12/10/2016 VENKAT (obstructive [...] on file Legal Sex Female 3:41 AM SPECIMEN PROCESSOR Gender Identity Not on file Sexual Orientation Not on file Last Filed Vital Signs Vital Sign Reading Time Taken Comments Blood Pressure 98/56 10/27/2023 10:41 AM CDT Pulse 74 10/27/2023 10:41 AM CDT Temperature 36.7 C (98 F) 09/01/2020 11:45 AM CDT Respiratory Rate 25 09/01/2020 2:11 PM CDT Oxygen Saturation 96% 04/28/2023 9:29 AM SPECIMEN PROCESSOR Inhaled Oxygen Concentration - - Weight 66.7 kg (147 lb) 10/27/2023 10:41 AM CDT Height 162.6 cm (5' 4) 04/28/2023 9:29 AM SPECIMEN PROCESSOR Body Mass Index 25.23 04/28/2023 9:29 AM SPECIMEN PROCESSOR Plan of Treatment Not on file Medical Devices Implanted Type Area Revenue Enforcement Agent Device Identifier Shelf Expiration Date Model / Serial / Lot [employer] [id number] System 6-12fr Mvp Venous Closure Vascade - [id number] - [id number] Implanted:Qty: 1 on 09/01/2020 by Philip Leach MD at [facility] [employer] 06/30/2022 800-612C-10 U / [id number] B / [employer] [id number] System 6-12fr Mvp Venous Closure Vascade - [id number] - [id number] Implanted:Qty: 1 on 09/01/2020 by Philip Leach MD at [facility] [employer] 06/30/2022 800-612C-10 U / [id number] / [employer] [id number] Device Closure Vascade Od5 Fr Femoral Artery - [id number] - [id number] Implanted:Qty: 1 on 09/01/2020 by Philip Leach MD at [facility] [employer] 06/09/2022 700-500DX-0 5U / [id number] 1A / [id number] [id number] [employer] [id number] Device Closure Vascade Od5 Fr Femoral Artery - [id number] - [id number] Implanted:Qty: 1 on 09/01/2020 by Philip Leach MD at [facility] [employer] 06/25/2022 700-500DX-0 5U / [id number] 1A / [employer] [id number] Device Closure Vascade Od5 Fr Femoral Artery - [id number] - [id number] Implanted:Qty: 1 on 09/01/2020 by Philip Leach MD at [facility] [employer] 06/25/2022 700-500DX-0 5U / [id number] 1A / Insurance [id number] MDCR HMO REF [facility] MEDICARE Address: [place] [id number] [place] [address] [facility] MEDICARE ADVANTAGE [facility] MEDICARE Address: [facility] [address] [place] [address] Care Teams Instructional Technologist Relationship Specialty Start Date End Date Bernadine Hall DO [address] [place] [address] [place] [phone] PCP - General Family Medicine 01/31/23 Floresita Merida NP Nurse Practitioner Cardiology 09/01/20 Luis Alberto Edwards MD Consulting Physician Cardiology 10/17/20
--- NOTE | 2024-09-26 00:02 | PC.NURSE ---
This RN and two techs attempted to get pt blood. We were unsuccessful at time. head inspector and center marker notified.
[2024-09-26 00:22] VITALS: BP 186/93; PULSE 82; RESP 17; O2SAT 96
[2024-09-26] MEDS: diazePAM INJ (*CRX) 10 MG/2 ML SYRINGE 2.5 MG IV PUSH (00:22)
[2024-09-26 02:51] VITALS: BP 170/89; PULSE 72; RESP 18; O2SAT 97
== END 2024-09-26 02:53 | disposition home or self-care (01) ==
PROVIDERS: Registered Nurse; Emergency Provider Student in an Organized Health Care Education/Training Program; PCP Family Medicine
DX: R42 Dizziness and giddiness (principal); I10 Essential (primary) hypertension; E78.5 Hyperlipidemia, unspecified; M19.90 Unspecified osteoarthritis, unspecified site; Z96.643 Presence of artificial hip joint, bilateral; Z98.49 Cataract extraction status, unspecified eye; Z79.899 Other long term (current) drug therapy; R94.31 Abnormal electrocardiogram [ECG] [EKG]; I51.7 Cardiomegaly
CPT/HCPCS: 36415; 70450; 70496; 70498; 71046; 80053; 83880; 84484; 85025; 85610; 85730; 93005; 96374; 99284; J3360; Q9967

== ENCOUNTER 2024-10-01 08:45 | Outpatient (CLI) | payer MEDICARE, SELFPAY ==
--- OUTSIDE RECORDS SUMMARY | 2024-10-01 08:54 | XMS_ITS | Referral Summary ---
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 Overview (08/15/2020): Added automatically from request for surgery [id number] Dizziness 12/10/2016 Near syncope 12/10/2016 VENKAT (obstructive [...] on file Legal Sex Female 3:41 AM DIRECTOR SHIP Gender Identity Not on file Sexual Orientation Not on file Last Filed Vital Signs Vital Sign Reading Time Taken Comments Blood Pressure 98/56 10/27/2023 10:41 AM CDT Pulse 74 10/27/2023 10:41 AM CDT Temperature 36.7 C (98 F) 09/01/2020 11:45 AM CDT Respiratory Rate 25 09/01/2020 2:11 PM CDT Oxygen Saturation 96% 04/28/2023 9:29 AM DIRECTOR SHIP Inhaled Oxygen Concentration - - Weight 66.7 kg (147 lb) 10/27/2023 10:41 AM CDT Height 162.6 cm (5' 4) 04/28/2023 9:29 AM DIRECTOR SHIP Body Mass Index 25.23 04/28/2023 9:29 AM DIRECTOR SHIP Plan of Treatment Not on file Medical Devices Implanted Type Area Terminal Gauger Device Identifier Shelf Expiration Date Model / Serial / Lot [employer] [id number]-[id number] System 6-12fr Mvp Venous Closure Vascade - [id number] - [id number] Implanted:Qty: 1 on 09/01/2020 by Philip Leach MD at [facility] [employer] 06/30/2022 800-612C-10 U / [id number] B / [employer] [id number] System 6-12fr Mvp Venous Closure Vascade - [id number] - [id number] Implanted:Qty: 1 on 09/01/2020 by Philip Leach MD at [facility] [employer] 06/30/2022 800-612C-10 U / [id number] B / [employer] [id number] Device Closure Vascade Od5 Fr Femoral Artery - [id number] - [id number] Implanted:Qty: 1 on 09/01/2020 by Philip Leach MD at [facility] [employer] 06/09/2022 700-500DX-0 5U / [id number] 1A / [id number] [employer] [id number] Device Closure Vascade Od5 Fr Femoral Artery - [id number] - [id number] Implanted:Qty: 1 on 09/01/2020 by Philip Leach MD at [facility] [employer] 06/25/2022 700-500DX-0 5U / [id number] 1A / [employer] [id number] Device Closure Vascade Od5 Fr Femoral Artery - [id number] - [id number] Implanted:Qty: 1 on 09/01/2020 by Philip Leach MD at [facility] [employer] 06/25/2022 700-500DX-0 5U / [id number] 1A / Insurance [id number] MDCR HMO REF [facility] MEDIC[facility] Address: [id number] [place] [address] [facility] MEDICARE ADVANTAGE [facility] Address: [facility] [address] [place] [address] Care Teams Paper Inspector Relationship Specialty Start Date End Date Bernadine Hall DO [address] [place] [address] [place] [id number] PCP - General Family Medicine 01/31/23 Floresita Merida NP Nurse Practitioner Cardiology 09/01/20 Luis Alberto Edwards MD Consulting Physician Cardiology 10/17/20
--- OUTSIDE RECORDS SUMMARY | 2024-10-01 08:54 | XMS_ITS | Clinical Summary ---
Author Organization [facility] Address [address] [place] [address] Care Team Providers Care Lodging House Keeper Name Role Phone Unavailable Primary Care Provider Unavailabl e Source Comments [facility],non-owned Affiliates and Associated Physician Practices is amultiple site organization consisting of ambulatory clinics and hospital sitesin [place], [place], [place] and [place]. This disclosure is being madepursuant to the Care Everywhere program and may not contain all information available regarding this patient. Last updated 17.[facility] Social History Tobacco Use Types Packs/Day Years [...] patient's age to complete this topic Insurance [facility] MANAGED MEDICARE ADV [employer] [facility] MANAGED MEDICARE ADV MANAGED MEDICARE ADV [place] [id number]
--- OUTSIDE RECORDS SUMMARY | 2024-10-01 08:54 | XMS_ITS | Encounter Summary ---
Author Organization [facility] Address [address] [place] [address] Care Team Providers Care Preschool Special Education Teacher Name Role Phone Unavailable Primary Care Provider Unavailabl e Encounter Details Date Type Department Care Team (Late st Contact Info) Description 12/07/2023 Lab Requisition [facility] - DermPath Lab [address] [place] [phone] Kerry Tapia APRN-CNP [facility] DERMATOLOGY [address] [place] [phone] Neoplasm of uncertain behavior of skin [...] AM CDT) Case Report Dermatopathology Report Case: [id number] Authorizing Provider: Kerry Tapia, Collected: 12/07/2023 12:00 AM BUILDING COORDINATOR-APPAREL SALES ASSOCIATE Ordering Location: [facility] - Received: 12/08/2023 01:58 PM DermPath Lab Pathologist: Ting Monteiro MD Specimens: A) - Skin, right roman catholic B) - Skin, right forearm 2:05 PM CDT DERMATOPATHOLOGY LABORATORY Final Diagnosis Specimen A. 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 The specimen consists of a shave biopsy measuring 6x6x2 mm. Jar 0. Specimen B: Received is one formalin filled container labeled with the patient's name and designated right forearm. The specimen consists of a shave biopsy measuring 6x6x2 mm. Jar 0. 2:05 PM T DERMATOPATHOLOGY LABORATORY Microscopic Description Specimen A. SKIN, right roman catholic: The epidermis shows parakeratosis, full thickness disorderly [...] purposes. Billing Codes Specimen Charges Stain Charges 21793 80466 1 1 2:05 PM CDT DERMATOPATHOLOGY LABORATORY Embedded Images 2:05 PM CDT DERMATOPATHOLOGY LABORATORY Pathology/Cytology TISSUE SPECIMEN FROM SKIN / Unknown 12/07/2023 12/08/2023 1:58 PM CDT Miscellaneous samples (specimen) TISSUE SPECIMEN FROM SKIN / Unknown 12/07/2023 12/08/2023 1:58 PM CDT Kerry Tapia APRN-APPAREL SALES ASSOCIATE LAB - PATHOLOGY/ANIBAL PICKARDOGEd ORDERABLES Final Result DERMATOPATHOLOGY LABORATORY [facility] - Department of Dermatology [facility] Specialized Medicine [address] [place] [address], [address] Floor [address] [phone] documented in this encounter Visit Diagnoses Diagnosis Neoplasm of uncertain behavior of skin documented in this encounter
--- OUTSIDE RECORDS SUMMARY | 2024-10-01 08:54 | XMS_ITS | Clinical Summary ---
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 Overview (08/15/2020): Added automatically from request for surgery [id number] Dizziness 12/10/2016 Near syncope 12/10/2016 VENKAT (obstructive [...] on file Legal Sex Female 3:41 AM RECREATION ATTENDANT Gender Identity Not on file Sexual Orientation Not on file Obstetrics History Last Filed Vital Signs Vital Sign Reading Time Taken Comments Blood Pressure 98/56 10/27/2023 10:41 AM CDT Pulse 74 10/27/2023 10:41 AM CDT Temperature 36.7 C (98 F) 09/01/2020 11:45 AM CDT Respiratory Rate 25 09/01/2020 2:11 PM CDT Oxygen Saturation 96% 04/28/2023 9:29 AM RECREATION ATTENDANT Inhaled Oxygen Concentration - - Weight 66.7 kg (147 lb) 10/27/2023 10:41 AM CDT Height 162.6 cm (5' 4) 04/28/2023 9:29 AM RECREATION ATTENDANT Body Mass Index 25.23 04/28/2023 9:29 AM RECREATION ATTENDANT Plan of Treatment Health Maintenance Due Date Last Done Comments Depression Screening 1945 Hepatitis C Screening 1945 Osteoporosis Screening-Bone Density Scan 1945 Hepatitis B Screening 11/12/1963 Pneumococcal vaccine 65+ (1 of 1 - PCV) 11/12/1995 Zoster Vaccine (1 of 2) 11/12/1995 Well Visit 65+ 2010 Fall Risk Assessment 09/01/2021 09/01/2020 Influenza Vaccine (#1) 2024 01/29/2019, 2017 DTaP/Tdap/Td Vaccine (2 - Td or Tdap) 02/28/2030 Medical Devices Implanted Type Area Glass Bead Maker Device Identifier Shelf Expiration Date Model / Serial / Lot [employer] [id number] System 6-12fr Mvp Venous Closure Vascade - [id number] - [id number] Implanted:Qty: 1 on 09/01/2020 by Philip Leach MD at [facility] [employer] 06/30/2022 800-612C-10 U / [id number] B / [employer] [id number] System 6-12fr Mvp Venous Closure Vascade - [id number] - [id number] Implanted:Qty: 1 on 09/01/2020 by Philip Leach MD at [facility] [employer] 06/30/2022 800-612C-10 U / [id number] B / [employer] [id number] Device Closure Vascade Od5 Fr Femoral Artery - [id number] - [id number] Implanted:Qty: 1 on 09/01/2020 by Philip Leach MD at [facility] [employer] 06/09/2022 700-500DX-0 5U / [id number] / [id number] [employer] [id number] Device Closure Vascade Od5 Fr Femoral Artery - [id number] - [id number] Implanted:Qty: 1 on 09/01/2020 by Philip Leach MD at [facility] [employer] 06/25/2022 700-500DX-0 5U / [id number] 1A / [employer] [id number] Device Closure Vascade Od5 Fr Femoral Artery - [id number] - [id number] Implanted:Qty: 1 on 09/01/2020 by Philip Leach MD at [facility] [employer] 06/25/2022 700-500DX-0 5U / [id number] 1A / Insurance MDCR HMO REF [facility] MEDICARE Address: [place] [id number] MEDICARE ADVANTAGE [facility] MEDICARE Address: [place] [address] Care Teams Wellness Consultant Relationship Specialty Start Date End Date Bernadine Hall DO [address] [place] [address] [address] PCP - General Family Medicine 01/31/23 Floresita Merida NP Nurse Practitioner Cardiology 09/01/20 Luis Alberto Edwards MD Consulting Physician Cardiology 10/17/20
--- OUTSIDE RECORDS SUMMARY | 2024-10-01 08:54 | XMS_ITS | Encounter Summary ---
Author Organization [facility] Address [address] [facility] [place] [address] Care Team Providers Care Translator/Interpreter Name Role Phone Unavailable Primary Care Provider Unavailabl e Encounter Details Date Type Department Care Team (Late st Contact Info) Description 10/12/2022 Lab Requisition [facility] - DermPath Lab [address] [place] [phone] Caterina Lopez MD [address] [place] [address] [place] [phone] Neoplasm of uncertain behavior of skin; Carcinoma [...] AM CDT) Case Report Dermatopathology Report Case: [id number] Authorizing Provider: Caterina Lopez MD Collected: 10/12/2022 12:00 AM Ordering Location: [facility] DermPath Lab Received: 10/13/2022 01:25 PM [...] 7x5x1 mm. Jar 0. 3 12:26 PM [facility] DERMATOPATHOLOGY LABORATORY Microscopic Description Specimen A. SKIN, [...] levels, and dyskeratotic cells. 3 12:26 PM [facility] DERMATOPATHOLOGY LABORATORY Disclaimer An external and internal positive and negative controls are appropriate for the histochemical, immunohistochemical and immunofluorescence stain(s) in this case (if any), except where stated explicitly. The performance characteristics of the stain(s) cited in this report were developed and its performance characteristic determined by the Dermatopathology Laboratory at [facility], directed by Dr. Negrita Davis. These tests need not be, and therefore are not, approved by the [place] Food and Drug Administration. The tests are used for clinical purposes. Billing Codes Specimen Charges Stain Charges 97375 71123 1 1 3 12:26 PM CDT DERMATOPATHOLOGY LABORATORY Embedded Images 12:26 PM T DERMATOPATHOLOGY LABORATORY Pathology/Cytology TISSUE SPECIMEN FROM SKIN / Unknown 10/12/2022 10/13/2022 1:25 PM CDT Miscellaneous samples (specimen) TISSUE SPECIMEN FROM SKIN / Unknown 10/12/2022 10/13/2022 1:25 PM CDT us Caterina Lopez MD LAB - PATHOLOGY/CYTOLOGY ORDERAB LES Final Result DERMATOPATHOLOGY LABORATORY 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
--- OUTSIDE RECORDS SUMMARY | 2024-10-01 08:55 | XMS_ITS | Clinical Summary ---
Author Organization [facility] Address [address] [place] [address] Care Team Providers Care Caseworker Intake Name Role Phone Unavailable Primary Care Provider [...]
[2024-10-01 13:06] LABS: Hematocrit 46.0 % (37.0-47.0); Hemoglobin 14.5 g/dL (12.0-15.0); Mean Corpuscular HGB Conc 31.5 g/dl (32-36); Mean Corpuscular Hemoglobin 28.3 pg (26-34); Mean Corpuscular Volume 89.8 fl (80-100); Platelet Count Result 271 k/mm3 (150-375); Red Blood Count 5.12 M/mm3 (4.2-5.4); White Blood Count 6.2 K/mm3 (4.5-10.0)
[2024-10-01 14:23] LABS: Alanine Aminotransferase 15 U/L (6-35); Albumin Level 4.2 g/dL (3.5-5.1); Alkaline Phosphatase 82 U/L (38-126); Anion Gap 9 mmol/L (4-12); Aspartate Amino Transferase 40 U/L (14-36); Bilirubin,Total 0.6 mg/dL (0.2-1.3); Blood Urea Nitrogen 23 mg/dL (7-17); Calcium 9.6 mg/dL (8.4-10.2); Carbon Dioxide 28 mmol/L (22-30); Chloride 102 mmol/L (98-107); Cholesterol 174 mg/dL (0-200); Estimated Glomerular Filt Rate > 60; Glucose 74 mg/dL (65-110); HDL Direct 59 mg/dL; Potassium 4.1 mmol/L (3.4-5.0); Sodium 139 mmol/L (137-145); Total Protein 7.7 g/dL (6.3-8.2); Triglycerides 69 mg/dL (<150)
[2024-10-01 14:59] LABS: Thyroid Stimulating Hormone 1.990 uIU/mL (0.465-4.680)
== END 2024-10-01 08:46 | disposition home or self-care (01) ==
LOC: ANHGOSHLAB 08:46
PROVIDERS: PCP Family Medicine; Visit Provider Nurse Practitioner
DX: E78.5 Hyperlipidemia, unspecified (principal); I10 Essential (primary) hypertension; E03.9 Hypothyroidism, unspecified; E55.9 Vitamin D deficiency, unspecified
CPT/HCPCS: 36415; 80053; 80061; 82306; 84443; 85027